=== PATIENT | female | born 1965 | race Caucasian/White ===

== ENCOUNTER 2020-01-17 15:33 | Emergency (ER) | payer OTHER, SELFPAY ==
--- NOTE | ~2020-01-17 | XR_ITS ---
XR knee RT 2V DATE: 01/17/2020 16:33 INDICATION: Fall. Object went through the medial lower left leg. TECHNIQUE: AP and crosstable lateral views COMPARISON: None FINDINGS: There is osteoarthritis involving particularly the medial and patellofemoral compartments. No fracture or dislocation or joint effusion, periosteal reaction or bone destruction is evident. There is subcutaneous emphysema along the medial aspect of the mid left lower leg. IMPRESSION: Soft tissue subcutaneous emphysema of the medial mid lower leg Osteoarthritis of the knee joint Reviewed, dictated and finalized at location A.
--- NOTE | ~2020-01-17 | XR_ITS ---
XR tibia fibula RT 2V DATE: 01/17/2020 16:34 INDICATION: Fall. An object when through the medial mid and lower leg TECHNIQUE: AP and lateral views COMPARISON: None FINDINGS: There is subcutaneous emphysema along the mid to lower aspect of the lower leg medially. No radiopaque soft tissue foreign body is evident. No fracture, dislocation, periosteal reaction or bone destruction is detected. There is osteoarthritis at the knee joint. IMPRESSION: Medial mid to lower lower leg subcutaneous emphysema Reviewed, dictated and finalized at location A.
[2020-01-17 15:37] VITALS: BP 110/55; PULSE 77; RESP 15; TEMP 36.3; O2SAT 100
--- NOTE | 2020-01-17 16:21 | ED.GENADULT ---
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 She states that she was mowing the lawn and was struck possibly by a twig. She then fell down and has knee pain and 2 small puncture wound right lower leg. She is concerned that a twig may have gone through one wound and came out the other. She denies hitting her head or losing consciousness. She denies any neck pain, back pain, chest pain or abdominal pain. She rates her right knee begum as 10/10 and sharp in nature. She was given Morphine by EMS and it relieved her pain somewhat. There is no pain radiation. She is not sure when she had a tetanus shot. Related Data Home Medications Medication Instructions Recorded Confirmed Hydrolyzed Hyaluronic Acid 01/17/20 Xanax 01/17/20 hydrocodone-acetaminophen [Vicodin 1 tablet PO Q4-6H PRN 01/17/20 01/17/20 HP] levofloxacin 250 mg PO DAILY 01/17/20 01/17/20 tramadol 50 mg PO Q4H PRN 01/17/20 01/17/20 Allergies Allergy/AdvReac Type Severity Reaction Status Date / Time Penicillins Allergy Severe Swelling Verified 01/17/20 15:47 Review of Systems Constitutional: Constitutional: Denies chills, Denies fever(s), Denies headache(s) and Denies weakness Eyes: Eyes: Denies blurry vision ENT: Denies headache(s) and Denies neck pain Cardiovascular: Cardiovascular: Denies chest pain and Denies dyspnea Respiratory: Respiratory: Denies cough and Denies dyspnea Gastrointestinal: Gastrointestinal: Denies abdominal pain, Denies diarrhea, Denies nausea and Denies vomiting Genitourinary: Genitourinary: Denies hematuria and Denies dysuria Musculoskeletal: Musculoskeletal: Denies back pain, Reports arthralgias (right knee pain) and Denies neck pain Integumentary/Breasts: Skin/Breast: Reports wounds (2 open wound right lower leg) Neurologic: Denies headache(s) and Denies weakness [facility] Social History Social History Gender identity (if verbalized by the patient): Female Exam Const: General: no acute distress and well developed Orientation/consciousness: oriented to person, oriented to place, oriented to time and patient oriented x3 HENMT: Head: normocephalic Ears: external ears normal General nose exam: Normal external nose present Eyes: General: appearance normal, both eyes and all related structures Conjunctivae: conjunctivae normal Neck: Neck: normal visual inspection and full ROM Chest: Chest palpation & inspection: normal inspection of the chest and no tenderness Resp: Effort & Inspection: normal respiratory effort Auscultation: clear to auscultation bilaterally Cardio: Rate: regular rate Rhythm: regular rhythm GI: GI Palp: No abdominal tenderness and Yes Soft to palpation Skin: General skin exam: normal color and turgor normal Wounds: wounds noted (2 small wound right lower leg, 2 cm and 1 cm) Neuro: General: oriented to person, oriented to place, oriented to time and patient oriented x3 Cognition (Neuro): normal cognition Extrem: General: normal to inspection, full ROM and no pedal edema Psych: Appearance: grossly normal Mental Status: mental status grossly normal Affect: normal affect Course Consultations Consultation #1: Discussed with Dr. Burrell, who recommends LORENA, walker for comfort as needed. Date: 01/17/20 Time: 17:51 Vital Signs Vital signs: Vital Signs Temperature 36.3 C L 01/17/20 15:37 Pulse Rate 77 01/17/20 15:37 Respiratory Rate 15 01/17/20 15:37 Blood Pressure 110/55 L 01/17/20 15:37 Pulse Oximetry 100 01/17/20 15:37 Temperature 36.3 C L 01/17/20 15:37 Pulse Rate 61 01/17/20 17:52 Respiratory Rate 15 01/17/20 17:52 Blood Pressure 110/62 01/17/20 17:52 Pulse Oximetry 99 07/0
[2020-01-17] MEDS: TETANUS,DIPHTHERIA,AC PERTUSSIS ADULT (0.5 ML) BOOSTRIX IM (17:29)
[2020-01-17 17:52] VITALS: BP 110/62; PULSE 61; RESP 15; O2SAT 99
== END 2020-01-17 18:38 | disposition home or self-care (01) ==
PROVIDERS: Emergency Provider Emergency Medicine; PCP Emergency Medicine
DX: M25.561 Pain in right knee (principal); S81.831A Puncture wound without foreign body, right lower leg, initial encounter; Z23 Encounter for immunization; W22.8XXA Striking against or struck by other objects, initial encounter; W18.39XA Other fall on same level, initial encounter; Y93.H2 Activity, gardening and landscaping
CPT/HCPCS: 73560; 73590; 90471; 90715; 96374; 99284; J3010

== ENCOUNTER 2020-01-31 11:29 | Emergency (ER) | payer OTHER, SELFPAY ==
[2020-01-31 11:51] VITALS: BP 142/57; PULSE 78; RESP 16; TEMP 36.9; O2SAT 100
--- NOTE | 2020-01-31 12:23 | ED.EXTPRO ---
HPI - Extremity Problem General Chief complaint: Extremity Problem,Nontraumatic Stated complaint: Swelling/Leg pain Time Seen by Provider: 01/31/20 12:20 Source: patient and RN notes reviewed Mode of arrival: ambulatory Limitations: no limitations History of Present Illness HPI Narrative: 54-year-old female presents with concern for wound to her right lower leg. Reports 2 weeks ago she had a penetrating wound from a metal object that flew at her leg while she was cutting grass. Reports she was seen in the emergency room where she had an x-ray to confirm no retained foreign body, entry and exit wounds were cleaned and Steri-Strips were applied. Reports she has been changing the dressing 3-4 times daily and the wound continues to weep, reports swelling, pain at the wound site. Reports she stopped taking her hydrochlorothiazide because she thought that would help with the weeping. MD Complaint: extremity pain Related Data Home Medications Medication Instructions Recorded Confirmed Hydrolyzed Hyaluronic Acid 01/17/20 Xanax 01/17/20 hydrocodone-acetaminophen [Vicodin 1 tablet PO Q4-6H PRN 01/17/20 01/17/20 HP] tramadol 50 mg PO Q4H PRN 01/17/20 01/17/20 amitriptyline 01/31/20 fluoxetine mg 01/31/20 gabapentin 01/31/20 hydrochlorothiazide 01/31/20 omeprazole 01/31/20 Allergies Allergy/AdvReac Type Severity Reaction Status Date / Time Penicillins Allergy Severe Swelling Verified 01/17/20 15:47 Review of Systems Review of Systems: Narrative: CONSTITUTIONAL: Denies malaise, chills, sweats, or fever. CARDIOVASCULAR: Denies chest pain, palpitations. Reports bilateral lower leg edema RESPIRATORY: Denies cough or dyspnea. SKIN: Reports weeping posttraumatic wound on her right lower leg MUSCULOSKELETAL: Reports right lower leg pain All systems reviewed & are unremarkable except as noted in HPI and below PMFSH Social History Social History Gender identity (if verbalized by the patient): Female Comments At time of signature, agree with nursing past medical, surgical, social and family history. There is no relevant family history pertinent to the presenting complaint Exam Narrative: Exam Narrative: GENERAL: Well-appearing, well-nourished, and in no acute distress. HEAD: Normocephalic, atraumatic. EYES: PERRLA, conjunctivae clear NECK: Supple. CHEST: Speaks in full sentences. No respiratory distress. HEART: Regular rate and rhythm. Normal and equal peripheral pulses. EXTREMITIES: Right leg, foot, digits have normal strength and sensation, normal range of motion. Moderate pitting edema noted to bilateral lower legs, right foot. 5/5 strength with bilateral ankle and digit flexion and extension. Normal sensation with sensitivity to light touch and pain. No trophic changes, no obvious deformity, alignment normal, generalized right anterior tenderness, nearby joints and structures intact. Distal pulses palpable and equal bilaterally, skin warm, dry, pink. Capillary refill less than 3 seconds. SKIN: Warm, dry, no rash. 2 wounds noted to the right anterior leg, distal wound is well approximated with intact Steri-Strips. Proximal wound is gaping with serosanguineous drainage, beefy red wound bed edema, mild induration, tenderness surrounding both wounds consistent with cellulitis or wound infection NEURO: Alert and oriented x3. PSYCH: Normal mood and affect Course Course Emergency Course: Patient is aware of diagnosis, understands and agrees to treatment plan. Anticipatory guidance given. Patient agrees to follow-up as directed and is aware of reasons to seek care at the emergency department. Portions of this record may have been created with voice recognition software Vital Signs Vital signs: Vital Signs Temperature 98.4 F 01/31/20 11:51 Pulse Rate 78 01/31/20 11:51 Respiratory Rate 16 01/31/20 11:51 Blood Pressure 142/57 H 01/31/20 11:51 Pulse Oxi
== END 2020-01-31 12:47 | disposition home or self-care (01) ==
PROVIDERS: Emergency Provider Nurse Practitioner; PCP Emergency Medicine
DX: L08.9 Local infection of the skin and subcutaneous tissue, unspecified (principal); S81.801A Unspecified open wound, right lower leg, initial encounter; W20.8XXA Other cause of strike by thrown, projected or falling object, initial encounter; Y93.H9 Activity, other involving exterior property and land maintenance, building and construction; I10 Essential (primary) hypertension; G47.30 Sleep apnea, unspecified; Z98.84 Bariatric surgery status
CPT/HCPCS: 99213; G0463

== ENCOUNTER 2020-02-13 11:04 | Emergency (ER) | payer OTHER, SELFPAY ==
--- NOTE | 2020-02-13 11:07 | ED.GENADULT ---
HPI - General Adult General Chief complaint: Extremity Injury, Lower Stated complaint: leg swelling/refill medication Time Seen by Provider: 02/13/20 11:30 Source: patient Mode of arrival: ambulatory Limitations: no limitations History of Present Illness HPI narrative: 54-year-old female patient presents to the [facility] with complaints of a wound to the right leg. Patient states early in January she was mowing the grass and a piece of metal went through her leg. Patient states she was seen in the ER and had an x-ray done and there was no foreign bodies retained at that time. Patient states that she came here to the [facility] about 10 days ago and had some antibiotics because the wound was not healing to the leg. Patient states that she finished the Bactrim antibiotics that she was given. Patient states she is only been cleaning the wounds with water but has not been placing any type of antibiotic ointments or soap to cleanse the wounds. Patient states she is also had a little bit of numbness and tingling to the anterior leg right under the wounds. Patient states this happened one other time with another wound and she called it nerve damage . Patient states she does have a follow-up appointment scheduled with her primary doctor tomorrow. Patient denies any fevers, body aches or chills. Denies any history of diabetes. Related Data Home Medications Medication Instructions Recorded Confirmed Hydrolyzed Hyaluronic Acid 01/17/20 Xanax 01/17/20 hydrocodone-acetaminophen [Vicodin 1 tablet PO Q4-6H PRN 01/17/20 01/17/20 HP] tramadol 50 mg PO Q4H PRN 01/17/20 01/17/20 amitriptyline 01/31/20 fluoxetine mg 01/31/20 gabapentin 01/31/20 hydrochlorothiazide 01/31/20 omeprazole 01/31/20 Allergies Allergy/AdvReac Type Severity Reaction Status Date / Time Penicillins Allergy Severe Swelling Verified 02/13/20 11:22 Review of Systems Review of Systems: Narrative: CONSTITUTIONAL: Denies fever, chills, or sweats. EYES: Denies visual changes, redness, or discharge. ENT: Denies rhinorrhea, congestion, sore throat, or otalgia. CARDIOVASCULAR: Denies chest pain, palpitations, or edema. RESPIRATORY: Denies cough or dyspnea. GASTROINTESTINAL: Denies abdominal pain, nausea, vomiting, or diarrhea. GENITOURINARY: Denies dysuria or hematuria. SKIN: Denies rash or itching. Positive wounds to right lower leg. MUSCULOSKELETAL: Denies back pain, joint pain, or myalgia. NEUROLOGIC: Denies headache, numbness, or weakness. PSYCHIATRIC: Denies anxiety or depression. [facility] Social History Social History Gender identity (if verbalized by the patient): Female Comments At the time of my signature I agree with nursing past medical history, surgical, social, and family history. There is no relevant family history pertinent to the presenting complaint. Exam Narrative: Exam Narrative: GENERAL: Well-appearing, well-nourished, and in no acute distress. HEAD: Normocephalic, atraumatic. EYES: PERRLA and EOMI. ENT: Nares clear, no rhinorrhea or epistaxis. Mucous membranes moist. NECK: Supple. No lymphadenopathy CHEST: Clear to auscultation. No respiratory distress. HEART: Regular rate and rhythm. No murmur heard. Normal peripheral pulses. ABDOMEN: Soft, nontender, nondistended, normal active bowel sounds. EXTREMITIES: Normal range of motion. No edema. SKIN: Warm, dry, no rash. Patient has 2 wounds noted to the anterior right lower extremity. The more proximal wound measuring approximately 0.5. No discharge noted to this site with some surrounding erythema. There is slight warmth noted to this area. There is also another wound that is more distal to the lateral side of the right leg measuring approximately 2 cm x 1 cm. There is some serosanguineous drainage noted to this area along with some warmth and slight tenderness. There is some warmth noted to the skin in between these wounds with s
[2020-02-13 11:15] VITALS: BP 116/55; PULSE 64; RESP 18; TEMP 36.9; O2SAT 98
== END 2020-02-13 11:43 | disposition home or self-care (01) ==
PROVIDERS: Emergency Provider Nurse Practitioner Family; PCP Emergency Medicine
DX: L03.116 Cellulitis of left lower limb (principal); I10 Essential (primary) hypertension; G47.30 Sleep apnea, unspecified; Z98.84 Bariatric surgery status
CPT/HCPCS: 99213; G0463

== ENCOUNTER 2020-02-14 09:39 | Outpatient (CLI) | payer OTHER, SELFPAY ==
--- NOTE | 2020-02-18 07:03 | SLEEP_ITS ---
Home Sleep Test DATE OF STUDY: 02/14/2020 REASON FOR THIS STUDY: Loud snoring, non-refreshing sleep. HISTORY: This patient is a 54-year-old female, 5 feet 6 inches tall, weighing 220 pounds with a body mass index of 35.5. She has a history of loud snoring and feels tired upon awakening. This is gone on for several months. She has used CPAP in the past. She does have excessive daytime sleepiness. She does not wake up from sleep feeling short of breath or with heartburn or belching. She occasionally snores, but does not indicate it is loud enough that others complain about it. She has trouble sleeping with a cold. She rarely wakes up at night gasping for breath. She occasionally has breathing problems at night observed by others. She does not sweat excessively at night. She rarely notices her heart pounding or beating irregularly at night. She occasionally falls asleep during the day, never involuntarily, or while driving. She does not fall asleep with physical effort. She does not fall asleep with laughing or crying and does not have loss of muscle tone with strong emotion. She does not have daytime difficulties due to excessive sleepiness. She does not feel paralyzed on waking or falling asleep. She rarely has vivid dreamlike scenes upon awakening or falling asleep. She is not afraid to go to sleep. She rarely has nightmares, rarely remembers her dreams. She occasionally has racing thoughts, feelings of sadness, depression and frequently has anxiety. She occasionally has muscular tension. She never notices parts of her body jerking and she does not kick at night. She occasionally has crawly achy feelings in her legs. She frequently has leg pain at night. She does not have morning jaw pain and does not grind her teeth at night. She constantly is bothered by pain during the day, wakes up feeling stiff in the morning with sore achy muscles and pain in her neck and spine. She rarely is awakened during the night with pain. She has dizziness, fatigue, memory problems, depression, and headaches. Bedtime is 12:00 midnight, falling asleep immediately. Hardly ever waking at night. She gets up at 6:00 in the morning. Weekend schedule is the same. She does not take naps. A short nap is not refreshing. She is usually drowsy in the morning for an hour or longer. MEDICAL COMORBIDITIES: Depression, anxiety, gastric bypass, hypothyroidism, history of obstructive sleep apnea syndrome. Apparently, she had a sleep study over 20 years ago and her setting was never changed. She is on 7 cm, so it does not sound like that was sufficient. Her note from the office indicates she was on APAP 5-10 cm and she may need a different pressure. Low back pain, morbid obesity, headache, metabolic syndrome X. MEDICATIONS: 1. Neurontin 300 mg t.i.d. 2. Omeprazole 20 mg a day. 3. Cyclobenzaprine 10 mg b.i.d. 4. Synthroid 175 mcg daily. 5. Hydrochlorothiazide 25 mg a day. 6. Topamax 100 mg b.i.d. 7. Fluticasone nasal spray 50 mcg 2 sprays each nostril daily. 8. Fluoxetine 20 mg a day. 9. Amitriptyline 50 mg h.s. 10. Imitrex 50 mg p.o. as needed for headache. 11. Ultram 50 mg q.6 hours p.r.n. 12. [place] 7.5/325 one tablet t.i.d. p.r.n. pain. 13. Alprazolam 1 mg t.i.d. as needed for anxiety. HABITS: No mention of tobacco. Caffeine, 2 beverages in the morning. No alcohol. Marijuana is used. DESCRIPTION OF THE STUDY: On the [place] Sleepiness Scale score, her score is 8. This was conducted as an unattended type 3 portable home sleep test with 4 channel monitoring including respiratory effort channel, snoring channel, oxygen saturation channel, and heart rate channel. This study was scored using CMS guidelines. Duration was 6 hours 35 minutes. Apnea-hypopnea index is 8
== END 2020-02-14 09:40 | disposition home or self-care (01) ==
LOC: ANHCSM 09:40
PROVIDERS: PCP Emergency Medicine; Visit Provider Emergency Medicine
DX: G47.33 Obstructive sleep apnea (adult) (pediatric) (principal); Z68.35 Body mass index [BMI] 35.0-35.9, adult
CPT/HCPCS: 95806

== ENCOUNTER 2021-08-24 14:39 | Outpatient (CLI) | payer MEDICARE, MEDICAID, SELFPAY ==
--- NOTE | ~2021-08-24 | CT_ITS ---
EXAMINATION:CT lung screening DATE: 08/24/2021 15:12 INDICATION: Personal history of nicotine dependence. Smoker who quit 4 years ago with 39 pack year hi story. TECHNIQUE: Computed tomography (CT) of the chest was performed without intravenous contrast. Automate d exposure control and iterative reconstruction technique were employed. The dose-length product (DLP ) was 144.14 mGy-cm. COMPARISON: Chest CT 08/17/2018 FINDINGS: The lungs demonstrate minimal atelectasis. No pleural effusion. The heart size is normal. N o pericardial effusion. There are coronary artery calcifications. There are surgical changes in the s tomach. There is a small sliding hiatal hernia. There is moderate thoracic spondylosis. IMPRESSION: 1. Lung-RADS category 1: Negative. Continue annual screening with noncontrast low-dose chest CT in 12 months. Reviewed, dictated and finalized at location A. TH WORKERS IMPRESSION: 1. Lung-RADS category 1: Negative. Continue annual screening with noncontrast l ow-dose chest CT in 12 months.
--- NOTE | ~2021-08-24 | MM_ITS ---
EXAMINATION: MM screening haily BI w dominick HISTORY: Screening TECHNIQUE: Craniocaudal and mediolateral oblique 3-D tomosynthesis images were obtained and synthetic 2-D images were generated. CAD analysis was submitted and interpreted. COMPARISON: Comparison to multiple prior studies sequentially, with oldest reviewed study dated 03/2015. BREAST PARENCHYMAL COMPOSITION: There are scattered areas of fibroglandular density. FINDINGS: There is no evidence of suspicious mass, calcification, or architectural distortion to sugg est malignancy in either breast. There has been no suspicious interval change. IMPRESSION: 1. No mammographic evidence of malignancy. 2. Recommend routine screening mammography in one year. BI-RADS Category 1: Negative Reviewed, dictated and finalized at location A. 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
== END 2021-08-24 14:40 | disposition home or self-care (01) ==
LOC: ANHIMG 14:40
PROVIDERS: PCP Emergency Medicine; Visit Provider Emergency Medicine
DX: Z12.31 Encounter for screening mammogram for malignant neoplasm of breast (principal); Z12.2 Encounter for screening for malignant neoplasm of respiratory organs; Z87.891 Personal history of nicotine dependence
CPT/HCPCS: 71271; 77063; 77067

== ENCOUNTER 2022-08-05 13:03 | Emergency (ER) | payer MEDICARE, MEDICAID, SELFPAY ==
--- NOTE | 2022-08-05 13:04 | ED.DENTAL ---
HPI - Dental/Oral General Chief complaint: Dental/Oral Stated complaint: tooth pain Time Seen by Provider: 08/05/22 13:11 Mode of arrival: ambulatory Limitations: no limitations History of Present Illness HPI Narrative: 57-year-old female presents concern for left lower dental pain. She reports about a month ago she broke a tooth in that area, she did not have any immediate pain. Reports in the last several days she began having swelling to the left jaw and pain in the tooth. Reports she has been taking ibuprofen and tramadol. She denies difficulty swallowing, fever. MD Complaint: tooth pain Related Data Home Medications Medication Instructions Recorded Confirmed Hydrolyzed Hyaluronic Acid 1 ea DIRECTED 01/17/20 08/05/22 hydrocodone 10 mg-acetaminophen 1 tablet PO Q4-6H PRN Acid Reflux 01/17/20 08/05/22 300 mg tablet (Vicodin HP) tramadol 50 mg tablet 50 mg PO Q4H PRN Acid Reflux 01/17/20 08/05/22 amitriptyline 25 mg tablet 25 mg DIRECTED 01/31/20 08/05/22 fluoxetine 20 mg capsule 20 mg DIRECTED 01/31/20 08/05/22 gabapentin 300 mg capsule 300 mg DIRECTED 01/31/20 08/05/22 hydrochlorothiazide 25 mg tablet 25 mg DIRECTED 01/31/20 08/05/22 omeprazole 20 mg capsule,delayed 20 mg DIRECTED 01/31/20 08/05/22 release alprazolam 1 mg tablet 1 mg DIRECTED 08/05/22 08/05/22 Allergies Allergy/AdvReac Type Severity Reaction Status Date / Time Penicillins Allergy Severe Swelling Verified 02/13/20 11:22 Review of Systems Review of Systems: CONSTITUTIONAL: Denies malaise, chills, sweats, or fever. EYES: Denies visual changes ENT: Denies rhinorrhea, congestion, sinus pain, otalgia or sore throat. Reports left lower dental pain and jaw swelling CARDIOVASCULAR: Denies chest pain, palpitations RESPIRATORY: Denies cough or dyspnea. SKIN: Denies rash or itching. MUSCULOSKELETAL: Denies myalgia. NEUROLOGIC: Denies numbness, weakness, or headache. All systems reviewed & are unremarkable except as noted in HPI and below PMFSH Social History Social History Gender identity (if verbalized by the patient): Female Comments At time of signature, agree with nursing past medical, surgical, social and family history. There is no relevant family history pertinent to the presenting complaint Exam Narrative: GENERAL: Well-appearing, well-nourished, and in no acute distress. HEAD: Normocephalic, atraumatic. EYES: PERRLA, sclera clear ENT: Nares clear, turbinates pink, no rhinorrhea or epistaxis. Mucous membranes moist. TM pearly cosme with sharp light reflex bilaterally; no tragal tenderness. Oropharynx without erythema or lesions. Tonsils not enlarged and without exudate. Tooth 19. Broken with mild amount edema without fluctuation noted at the gumline. Small amount left jaw swelling and tenderness noted NECK: Supple. No lymphadenopathy. CHEST: No respiratory distress. Speaks in full sentences. HEART: Regular rate and rhythm. SKIN: Warm, dry, no visible rash. NEURO: Alert and oriented x3. PSYCH: Normal mood and affect Course Course Emergency Course: Patient is aware of diagnosis, understands and agrees to treatment plan. Anticipatory guidance given. Patient agrees to follow-up as directed and is aware of reasons to seek care at the emergency department. Portions of this record may have been created with voice recognition software Level of Care: Express Care Visit Vital Signs Vital signs: Reviewed. MDM - Dental/Oral MDM Narrative Medical decision making narrative: Patients pain and complaint coupled with physical findings are consistant with dentalgia. There are no focal signs of space occupying lesions that are compromising to the airway; no dysphagia, odynophagia, dysphonia, or dyspnea. No uvular deviation or soft palate edema. Patient is non-toxic appearing. The floor of the mouth is soft with no signs of Dov's Angina; no induration below mandibl
[2022-08-05 13:09] VITALS: BP 122/49; PULSE 69; RESP 16; TEMP 36.3; O2SAT 100
== END 2022-08-05 13:24 | disposition home or self-care (01) ==
PROVIDERS: Emergency Provider Nurse Practitioner; PCP Emergency Medicine
DX: K04.7 Periapical abscess without sinus (principal); I10 Essential (primary) hypertension; Z98.84 Bariatric surgery status; H26.9 Unspecified cataract
CPT/HCPCS: 99213; G0463

== ENCOUNTER 2022-09-09 10:28 | Outpatient (CLI) | payer MEDICARE, MEDICAID, SELFPAY ==
--- NOTE | ~2022-09-09 | CT_ITS ---
EXAMINATION: CT lung screening DATE: 09/09/2022 10:57 INDICATION: History of nicotine dependence. TECHNIQUE: Computed tomography (CT) of the chest was performed without intravenous contrast. The dose -length product was 145.25 mGy-cm. Automated exposure control and iterative reconstruction technique were employed. COMPARISON: CT dated 08/24/2021 FINDINGS: Heart size is normal. No significant pleural or pericardial effusion. There are surgical ch anges of gastric bypass. No thoracic lymphadenopathy. There is mild atherosclerosis. There is a 2 mm right fissural nodule, likely benign. There is a 2 mm right upper lobe nodule. There is a 3 mm right middle lobe nodule. No focal airspace consolidation. No endobronchial lesions. No pneumothorax. Mild thoracic spondylosis. IMPRESSION: 1. Lung-RADS category 2: Benign appearance or behavior. Continue annual screening with noncontrast lo w-dose chest CT in 12 months. Reviewed, dictated and finalized at location B. 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 Lung-RADS category 2: Benign appearance or behavior. Continue annual screeni ng with noncontrast low-dose chest CT in 12 months.
== END 2022-09-09 10:29 | disposition home or self-care (01) ==
PROVIDERS: PCP Emergency Medicine; Visit Provider Emergency Medicine
DX: Z12.2 Encounter for screening for malignant neoplasm of respiratory organs (principal); Z87.891 Personal history of nicotine dependence
CPT/HCPCS: 71271

== ENCOUNTER 2022-11-02 09:53 | Outpatient (CLI) | payer MEDICARE, MEDICAID, SELFPAY ==
--- NOTE | ~2022-11-02 | DEXA_ITS ---
Bone Density Report Name: APRIL RODRIGUEZ Age: 57 Sex: Female Ethnicity: White Date of : 1965 Indication: osteopenia; parental hip fracture; height loss; prior fracture; hysterectomy; postmenopausal Referring Provider: MARYAM MOLINA Study: Bone densitometry was performed. Exam Date: November 02, 2022 Accession number: [id number] Bone Density: Region BMD T-score Z-score Classification AP Spine(L1-L4) 0.790 -2.3 -1.0 Osteopenia Femoral Neck (Left) 0.559 -2.6 -1.4 Osteoporosis Total Hip (Left) 0.783 -1.3 -0.4 Osteopenia Femoral Neck (Right) 0.596 -2.3 -1.0 Osteopenia Total Hip (Right) 0.706 -1.9 -1.0 Osteopenia Total Hip Mean 0.744 -1.6 -0.7 Osteopenia World Health Organization criteria for BMD impression classify patients as: Normal (T-score at or above -1.0), Osteopenia (T-score between -1.0 and -2.5), or Osteoporosis (T-score at or below -2.5). 10-year Fracture Risk: FRAX not reported because: Some T-score for Spine Total or Hip Total or Femoral Neck at or below -2.5 Previous Exams: Region Exam Age BMD T-score BMD Change BMD Change Date g/cm2 vs Baseline vs Previous AP Spine (L1-L4) 11/02/2022 57 0.790 -2.3 -0.116 (-12.8% -0.116 (-12.8% 12/26/2018 53 0.906 -1.3 Total Hip(Left) 11/02/2022 57 0.783 -1.3 -0.191 (-19.6% -0.136 (-14.8% 12/26/2018 53 0.919 -0.2 -0.055 (-5.6%) -0.055 (-5.6%) 06/24/2015 50 0.973 0.3 Total Hip(Right) 11/02/2022 57 0.706 -1.9 -0.279 (-28.3% -0.201 (-22.2% 12/26/2018 53 0.907 -0.3 -0.078 (-8.0%) -0.078 (-8.0%) 06/24/2015 50 0.985 0.4 *Denotes significance at 95% confidence level, LSC for AP Spine = 0.022 g/cm2, LSC for Total Hip = 0.027 g/cm2 Clinical Information Provided by Patient: Has had a low trauma fracture Parent has had a hip fracture Has the following medical conditions: Hysterectomy Patient maximum height was 67 Menopause Age: 34 No regular weight bearing exercise Does not regularly consume dairy products Drinks caffeinated beverages Onset of menses at age 10 Number of children 1 Impression: The patient has established osteoporosis, based on the Left Femoral Neck T-score and the existence of a prior fracture. The patient has risk factors, including: parental hip fracture, previous fracture. The BMD for the AP Spine (L1-L4) decreased, changing by -12.8% since the last DXA exam. The BMD for the Total Hip(Left) decreased, changing by -14.8% since the last DXA exam
--- NOTE | ~2022-11-02 | MM_ITS ---
EXAMINATION: MM screening [facility] BI w dominick HISTORY: Screening mammogram TECHNIQUE: Craniocaudal and mediolateral oblique 3-D tomosynthesis images were obtained and synthetic 2-D images were generated. CAD analysis was submitted and interpreted. COMPARISON: 08/24/2021, 08/07/2018, 06/29/2018 BREAST PARENCHYMAL COMPOSITION: There are scattered areas of fibroglandular density. FINDINGS: No suspicious mass, calcification, or architectural distortion are identified in either shashi ast to suggest malignancy. There has been no suspicious interval change. IMPRESSION: 1. No mammographic evidence of malignancy. 2. Recommend routine screening mammography in one year. BI-RADS Category 1: Negative Reviewed, dictated and finalized at location A.
== END 2022-11-02 09:54 | disposition home or self-care (01) ==
PROVIDERS: PCP Emergency Medicine; Visit Provider Emergency Medicine
DX: Z12.31 Encounter for screening mammogram for malignant neoplasm of breast (principal); M85.88 Other specified disorders of bone density and structure, other site; M81.0 Age-related osteoporosis without current pathological fracture; M85.851 Other specified disorders of bone density and structure, right thigh; M85.852 Other specified disorders of bone density and structure, left thigh
CPT/HCPCS: 77063; 77067; 77080

== ENCOUNTER 2023-10-13 13:53 | Outpatient (CLI) | payer MEDICARE, MEDICAID, SELFPAY ==
--- NOTE | ~2023-10-13 | US_ITS ---
EXAMINATION: US pelvic complete w TV DATE: 10/13/2023 15:17 INDICATION: Pelvic pain for 2-3 months Comparison:No prior studies for comparison. TECHNIQUE: Multiple transabdominal and endovaginal sonographic images of the pelvis performed. FINDINGS: Uterus is surgically absent. The right ovary measures 2.5 x 1.9 x 1.3 cm and the left ovary is not visualized due to bowel gas. No adnexal masses. There is no free fluid in the pelvis. There are no abnormal masses seen on either side. IMPRESSION: 1. Unremarkable pelvic ultrasound. Reviewed, dictated and finalized at location B.
== END 2023-10-13 13:54 | disposition home or self-care (01) ==
PROVIDERS: PCP Emergency Medicine; Visit Provider Emergency Medicine
DX: R10.2 Pelvic and perineal pain (principal)
CPT/HCPCS: 76830; 76856

== ENCOUNTER 2023-12-13 09:06 | Outpatient (CLI) | payer MEDICARE, MEDICAID, SELFPAY ==
--- NOTE | ~2023-12-13 | US_ITS ---
Abdominal Sonogram: Real-time sonographic imaging of the abdomen was performed. Clinical History: Abdominal pain Findings: The liver appears mildly heterogeneous, with no evidence of mass lesion or bile duct dilat ation. Main portal vein demonstrates normal direction of flow. The spleen is normal in size without e vidence of focal lesion. The gallbladder is well distended, and appears normal with no evidence of g allstone or wall thickening. The common bile duct measures 4 mm. The visualized pancreas, aorta, and IVC are unremarkable. The right kidney measures 11.5 cm in length and the left kidney measures 11.4 cm. There is no hydronephrosis or renal calculus. Impression: Possible diffuse fatty infiltration of liver or other chronic liver disease. Correlate clinically. Reviewed, dictated and finalized at [facility]. Impression: Possible diffuse fatty infiltration of liver or other chronic liver disease. Co rrelate clinically.
== END 2023-12-13 09:07 ==
LOC: MICIMG 09:07
PROVIDERS: PCP Emergency Medicine; Visit Provider Emergency Medicine
DX: R10.10 Upper abdominal pain, unspecified (principal)
CPT/HCPCS: 76700

== ENCOUNTER 2023-12-26 08:26 | Outpatient (CLI) | payer MEDICARE, MEDICAID, SELFPAY ==
--- NOTE | ~2023-12-26 | XR_ITS ---
EXAMINATION: XR UGI w small bowel DATE: 12/26/2023 12:46 INDICATION: Abnormal weight loss and abdominal pain TECHNIQUE: The patient drank thick barium, gas-producing crystals, and thin barium. Conventional supi ne abdomen radiographs and fluoroscopic spot radiographs of the esophagus, stomach, and proximal smal l bowel were obtained. Additional overhead radiographs were obtained during the transit through the s mall bowel. Spot fluoroscopic images of the small bowel were obtained upon contrast reaching the cec um. Fluoroscopy exposure time was 1.6 minutes. Total DAP was 98.962 Gycm^2. A total of 12 overhead ra diographs and 545 fluoroscopic images were obtained. COMPARISON: None. FINDINGS: The esophagus is normal without mass or stricture. Esophageal motility is normal. Postoperative roberts e of prior gastric bypass procedure with suture lines in the epigastric region and left abdomen. Smal l sliding type hiatal hernia containing essentially the entire non excluded portion of the stomach. T here is rapid passage of contrast through the external portion of the stomach and into the small jovon l. There was some with subsequent reflux of contrast from the small bowel across the gastrojejunal an astomosis and into the distalmost esophagus. Transit time from the stomach to proximal colon was appr oximately 3-3.5 hours. There is normal caliber and mucosal fold pattern throughout the small bowel. Terminal ileum is normal. IMPRESSION: 1. Postoperative change of prior gastric bypass procedure with small hiatal hernia containing the ent maxim small not excluded portion of the stomach. 2. Minimal gastroesophageal reflux. 3. Normal small bowel follow-through. Reviewed, dictated and finalized at location A. IMPRESSION: 1. Postoperative change of prior gastric bypass procedure with small hiatal her le containing the entire small not excluded portion of the stomach. 2. Minimal gastroesophageal reflux. 3. Normal small bowel follow-through.
== END 2023-12-26 08:27 | disposition home or self-care (01) ==
LOC: ANHIMG 08:36
PROVIDERS: PCP Emergency Medicine; Visit Provider Nurse Practitioner Family
DX: R63.0 Anorexia (principal); R63.4 Abnormal weight loss; R68.81 Early satiety
CPT/HCPCS: 74240; 74248

== ENCOUNTER 2024-09-03 13:44 | Outpatient (CLI) | payer MEDICARE, MEDICAID, SELFPAY ==
--- NOTE | ~2024-09-03 | CT_ITS ---
CT Scan of the Chest without Contrast: Clinical Indication: Lung cancer screening, nicotine dependence Technique: Contiguous sections were acquired throughout the chest without intravenous contrast. Dose reduction technique was used on this scan by utilizing automated exposure control and iterative recon struction technique. The dose-length product (DLP) was 89.22 mGy-cm. COMPARISON: 09/09/2022 Findings: There is no evidence of any significant mediastinal, hilar or axillary lymphadenopathy. The mediastin al soft tissues appear normal. There is no evidence of pleural or pericardial effusion. The lungs are clear. No pulmonary nodules or infiltrates are noted. Images through the upper abdomen reveal no abnormalities. Impression: Lung RADS 1: Negative. 12 month follow-up screening CT advised. Reviewed, dictated and finalized at location . IC RELATIONS ASSOCIATE Impression: Lung RADS 1: Negative. 12 month follow-up screening CT advised.
--- OUTSIDE RECORDS SUMMARY | 2024-09-03 13:52 | XMS_ITS | Referral Summary ---
Author Organization [facility] Address [address] [place] [address] Care Team Providers Care Objective C Developer Name Role Phone Odilon Briones MD Primary Care Provider Encounters Date Type Department Care Team Description 07/25/2024 Telephone [facility]) [facility] Minimally Invasive Surgery [address] [place] [address] 12th [address], [place] [address] Negro Torres NP Medical Question/Miscellaneous from Last 3 Months Allergies Active Allergy Reactions Criticality Noted Date Comments Penicillin G Benzathine Other (See comments) Low Reaction: Penicillins Edema,Hives Medium Medications DOCUSATE SODIUM ORAL 2 times daily Active amitriptyline (ELAVIL) 50 mg tablet TAKE 1 TABLET BY MOUTH EVERYDAY AT BEDTIME 05/31/20 20 Active cyclobenzaprine (FLEXERIL) 10 mg tablet cyclobenzaprine 10 mg tablet Active ergocalciferol (VITAMIN D) 50,000 unit capsule Take 1 capsule (50,000 Units total) by mouth once a week 07/15/20 20 Active gabapentin (NEURONTIN) 300 mg capsule TAKE 1 CAPSULE BY MOUTH THREE TIMES A DAY 07/14/20 20 Active hydroCHLOROthia zide (HYDRODIURIL) 25 mg tablet Take 1 tablet (25 mg total) by mouth daily 07/15/20 20 Active HYDROcodone-spenser taminophen (NORCO) 7.5-325 mg per tablet TAKE 1 TABLET BY MOUTH 3 TIMES A DAY NEEDED FOR PAIN 07/15/20 20 Active multivitamin tablet daily Active omeprazole (PriLOSEC) 20 mg capsule Take by mouth daily before breakfast 07/13/20 20 Active traMADoL (ULTRAM) 50 mg tablet Take 1 tablet (50 mg total) by mouth every 6 (six) hours as needed 07/15/20 Active ALPRAZolam (XANAX) 1 mg tablet TAKE 1 TABLET BY MOUTH THREE TIMES A DAY NEEDED FOR ANXIETY 07/15/20 Active SUMAtriptan (IMITREX) 50 mg tablet sumatriptan 50 mg tablet Active topiramate (TOPAMAX) 100 mg tabletIndicatio ns:Migraine without aura and without status migrainosus, not intractable Take 1 tablet (100 mg total) by mouth 2 (two) times a day 60 tablet 5 08/10/19 21 Active alendronate (FOSAMAX) 70 mg tablet PLEASE SEE ATTACHED FOR DETAILED DIRECTIONS 02/08/20 24 Active levothyroxine (SYNTHROID) 125 mcg tablet Take 1 tablet (125 mcg total) by mouth daily 03/11/[address] (CYMBALTA) 60 mg capsule Take 1 capsule (60 mg total) by mouth 2 (two) times a day 04/07/20 24 Active Active Problems Problem Noted Date Diagnosed Date Status post bariatric surgery 04/22/2024 Migraine without aura and wi thout status migrainosus, not intractable 08/10/2020 Assessment & Plan (08/10/2020 1:58 PM GEOINT ANALYST): Patient has a longstanding history of recurrent episodic headaches with historical description suggesting of migraine without aura. She has had an MRI of the brain performed which on reviewed report is normal. She is currently using topiramate 100 mg daily with good tolerability but no seen efficacy. She has not been on higher doses. She has a normal neurological examination. I will increase her topiramate 200 mg b.i.d. an effort to improve on headache prophylaxis. I will see her back in the office in 6 months time for reassessment on her adjusted dosing. Social History Tobacco Use Types Packs/Day Years Used Date Smoking Tobacco: Some Days Vaping Passive Smoke Exposure: Current Smokeless Tobacco: Never Tobacco Cessation:Ready to Q uit: Not Asked; Counseling Given: Not Answered Comments:Marijuana AUDIT-C Answer Date Recorded Q1: How often do you have a drink containing alcohol? Never 05/17/2024 Q2: How many drinks containi ng alcohol do you have on a typical day when you are drinking? Patient does not drink Q3: How often do you have si x or more drinks on one occasion? Never 05/17/2024 Personal Safety Answer Date Recorded Have you ever been in or are you currently in a harmful physical or emotional relationship or is someone making you feel afraid or unsafe? Denies 05/17/2024 Comments No Sex and Gender Information Value Date Recorded Sex Assigned at Not on file Legal Sex Female 4:11 AM GEOINT ANALYST Gender Identity Not on file Sexual Orientation Not on file Last Filed Vital Signs Vital Sign Reading Time Taken Comments Blood Pressure 130/58 05/17/2024 2:15 PM CDT Pulse 69 05/17/2024 2:15 PM CDT Temperature 37 C (98.6 F) 05/17/2024 1:55 PM CDT Respiratory Rate 14 05/17/2024 2:15 PM CDT Oxygen Saturation 100% 05/17/2024 2:15 PM CDT Inhaled Oxygen Concentration - - Weight 75.3 kg (166 lb) 05/17/2024 12:24 PM CDT Height 173.7 cm (5' 8.4 ) 05/17/2024 12:24 PM CD T Body Mass Index 24.95 05/17/2024 12:24 PM CDT Plan of Treatment Not on file Insurance [facility] Member Subscriber Plan / Payer (Ef fective 2016-Present) Name:Ange Macdonald Relation to Subscriber:Self Name:Ange Macdonald Payer ID:[id number] (NAIC) Group ID:Not on file Type:MEDICAID RISK OTHER Address: [address] [id number] MEDICARE IDPA AETNA MEDICARE GOLD IDPA AETNA MEDICARE GOLD IDPA Advance Directives For more information, please contact: [phone] * Full Code (Latest Code Status on File) Date Activated Date Inactivated Comments 05/17/2024 12:28 PM 05/17/2024 6:38 PM Care Teams Objective C Developer Relationship Specialty Start Date End Date Odilon Briones MD PCP - General 11/07/16
--- OUTSIDE RECORDS SUMMARY | 2024-09-03 13:52 | XMS_ITS | Clinical Summary ---
Author Organization [facility] Address [address] [place] [address] Care Team Providers Care Musical Instrument Supervisor Name Role Phone Odilon Briones MD Primary Care Provider + [phone] Allergies Active Allergy Reactions Criticality Noted Date [...] every 6 (six) hours as needed 07/15/20 20 Active ALPRAZolam (XANAX) 1 mg tablet TAKE 1 TABLET BY MOUTH THREE TIMES A DAY NEEDED FOR ANXIETY 07/15/20 20 Active SUMAtriptan (IMITREX) 50 mg tablet sumatriptan [...] 08/10/2020 Assessment & Plan (08/10/2020 1:58 PM MANAGER BRANCH): Patient has a longstanding history of recurrent [...] time for reassessment on her adjusted dosing. Encounters Date Type Department Care Team Description 07/25/2024 Telephone [facility] Advanced Medicine ([facility]) - [facility] Minimally Invasive Surgery [address] [facility] Advanced Medicine 12th Floor, [place] [address] Negro Torres NP Medical Question/Miscellaneous from Last 3 Months Surgical History Surgery Date Site/Laterality Comments TUBAL LIGATION SECTION HYSTERECTOMY GASTRIC BYPASS BREAST LUMPECTOMY Right Medical History Medical History Date Comments Body mass index (BMI) of 34. 0-34.9 in adult BMI 34.0-34.9,adult - (Added by TW Conv) Stroke (HCC) Depression Family History Medical History Relation Name Comments No Known Problems Brother Heart attack Father Hypertension Mother Family history of hypertension - (Added by TW Conv) Hypertension Other Family history of hypertension - (Added by TW Conv) No Known Problems Sister Relation Name Status Comments Brother Alive Father Mother Other Sister Alive Social History Tobacco Use Types Packs/Day Years [...] on file Legal Sex Female 4:11 AM MANAGER BRANCH Gender Identity Not on file Sexual Orientation Not on file Obstetrics History Last Filed Vital Signs Vital Sign Reading [...] 05/17/2024 12:24 PM CDT Plan of Treatment Health Maintenance Due Date Last Done Comments Breast Cancer Screening-Mammogram 1965 Colon Cancer Screening-Colonoscopy 1965 Depression Screening 1965 Hepatitis C Screening 1965 Pneumococcal vaccine <65 (1 of 2 - PCV) 1969 DTaP/Tdap/Td Vaccine (1 - Tdap) 1974 Hepatitis B Screening 1981 Regular Well Visit/Exam 18-64 1981 Zoster Vaccine (1 of 2) 2013 Influenza Vaccine (#1) 2024 9, 04/27/2017, 05/11/2016, Additional history exists Insurance [facility] MEDICARE [facility] T MEDICARE GOLD IDPA [facility] MEDICARE [facility] IDPA Advance Directives For more information, please contact: [phone] * Full Code (Latest Code Status on File) Date Activated Date Inactivated Comments 05/17/2024 12:28 PM 05/17/2024 6:38 PM Care Teams Musical Instrument Supervisor Relationship Specialty Start Date End Date Odilon Briones MD PCP - General 11/07/16
== END 2024-09-03 13:45 | disposition home or self-care (01) ==
PROVIDERS: PCP Emergency Medicine; Visit Provider Emergency Medicine
DX: Z12.2 Encounter for screening for malignant neoplasm of respiratory organs (principal); Z87.891 Personal history of nicotine dependence
CPT/HCPCS: 71271

== ENCOUNTER 2024-09-09 09:55 | Outpatient (CLI) | payer MEDICARE, MEDICAID, SELFPAY ==
--- NOTE | ~2024-09-09 | NM_ITS ---
EXAMINATION: NM hepatobiliary w pharm DATE: 09/09/2024 12:26 INDICATION: Upper abdominal pain. COMPARISON: None. TECHNIQUE: 4 mCi Tc-99m mebrofenin (Choletec) was administered intravenously. Scintigraphic images o f the abdomen were obtained for one hour. Then, 1.6 mcg sincalide (Kinevac) IV was administered, and imaging was continued for 30 minutes. FINDINGS: There is normal clearance of radiotracer from the blood pool. There is homogeneous tracer u ptake by the liver. Activity progresses to the bowel and gallbladder. Gallbladder ejection fraction (GBEF) was 62%. Note that most patients with gallbladder dysfunction have GBEF < 35%, which overlaps with the broad normal range of 10-90%. IMPRESSION: 1. Normal hepatobiliary scintigraphy. Reviewed, dictated and finalized at location A. LE LOOM OPERATOR HELPER
--- OUTSIDE RECORDS SUMMARY | 2024-09-09 11:02 | XMS_ITS | Clinical Summary ---
Author Organization [facility] Address [address] [place] [address] Care Team Providers Care Transcription Coordinator Name Role Phone Odilon Briones MD Primary Care Provider + [phone] Allergies Active Allergy Reactions Criticality Noted Date [...] 08/10/2020 Assessment & Plan (08/10/2020 1:58 PM PROPRIETARY TRADER): Patient has a longstanding history of recurrent [...] Type Department Care Team Description 07/25/2024 Telephone [facility] Advanced Medicine ([facility]) - [facility] Minimally Invasive Surgery [address] [facility] Advanced Medicine 12th Floor, [place] [address] Negro Torres NP Medical Question/Miscellaneous [...] on file Legal Sex Female 4:11 AM PROPRIETARY TRADER Gender Identity Not on file Sexual Orientation [...] Depression Screening 1965 Hepatitis C Screening 1965 DTaP/Tdap/Td Vaccine (1 - Tdap) 1974 Hepatitis B Screening 1981 Regular Well Visit/Exam 18-64 1981 Pneumococcal vaccine <65 (1 of 2 - PCV) 1982 Zoster Vaccine (1 of 2) 2013 Influenza Vaccine (#1) 2024 9, 04/27/2017, 05/11/2016, Additional history exists Insurance [facility] MEDICARE [facility] T MEDICARE GOLD IDPA [facility] MEDICARE [facility] IDPA Advance Directives For more information, please contact: [phone] * Full Code (Latest Code Status on File) Date Activated Date Inactivated Comments 05/17/2024 12:28 PM 05/17/2024 6:38 PM Care Teams Transcription Coordinator Relationship Specialty Start Date End Date Odilon Briones MD PCP - General 11/07/16
--- OUTSIDE RECORDS SUMMARY | 2024-09-09 11:02 | XMS_ITS | Referral Summary ---
Author Organization [facility] Address [address] [place] [address] Care Team Providers Care Paving Machine Operator Name Role Phone Odilon Briones MD Primary Care Provider Encounters Date Type Department Care Team Description 07/25/2024 Telephone [facility]) [facility] Minimally Invasive Surgery [address] [place] [address] 12th Floor, [place] [address] Negro Torres NP Medical Question/Miscellaneous [...] 08/10/2020 Assessment & Plan (08/10/2020 1:58 PM RECORD LABEL INTERN): Patient has a longstanding history of recurrent [...] on file Legal Sex Female 4:11 AM RECORD LABEL INTERN Gender Identity Not on file Sexual Orientation [...] Plan of Treatment Not on file Insurance [facility] Member Subscriber Plan / Payer (Ef fective 2016-Present) Name:Ange Macdonald Relation to Subscriber:Self Name:Ange Macdonald Payer ID:[id number] (NAIC) Group ID:Not on file Type:MEDICAID RISK OTHER Address: [address] [id number] MEDICARE IDPA AETNA MEDICARE GOLD IDPA AETNA MEDICARE GOLD IDPA Advance Directives For more information, please contact: [phone] * Full Code (Latest Code Status on File) Date Activated Date Inactivated Comments 05/17/2024 12:28 PM 05/17/2024 6:38 PM Care Teams Paving Machine Operator Relationship Specialty Start Date End Date Odilon Briones MD PCP - General 11/07/16
== END 2024-09-09 09:56 | disposition home or self-care (01) ==
PROVIDERS: PCP Emergency Medicine; Visit Provider Emergency Medicine
DX: R10.10 Upper abdominal pain, unspecified (principal)
CPT/HCPCS: 78227; A9537; J2805

== ENCOUNTER 2024-09-18 15:03 | Outpatient (CLI) | payer MEDICARE, MEDICAID, SELFPAY ==
--- NOTE | ~2024-09-18 | MM_ITS ---
EXAMINATION: MM screening [facility] BI w dominick HISTORY: Screening mammogram TECHNIQUE: Craniocaudal and mediolateral oblique 3-D tomosynthesis images were obtained and synthetic 2-D images were generated. CAD analysis was submitted and interpreted. COMPARISON: 11/02/2022, 08/24/2021, 08/07/2018, 06/19/2018 BREAST PARENCHYMAL COMPOSITION:Not Dense. There are scattered areas of fibroglandular density. FINDINGS: Stable small low-density left breast mass. No suspicious mass, calcification, or architectu ral distortion are identified in either breast to suggest malignancy. There has been no suspicious in terval change. IMPRESSION: No mammographic evidence of malignancy. Recommend routine screening mammography in one year. BI-RADS Category 2: Benign finding(s). Reviewed, dictated and finalized at [facility]. OF MARKETING
--- OUTSIDE RECORDS SUMMARY | 2024-09-18 16:53 | XMS_ITS | Referral Summary ---
Author Organization [facility] Address [address] [place] [address] Care Team Providers Care Edger Machine Setter Name Role Phone Odilon Briones MD Primary Care Provider Encounters Date Type Department Care Team Description 07/25/2024 Telephone [facility]) [facility] Minimally Invasive Surgery [address] [place] [address] [address]th Floor, [place] [address] Negro Torres NP Medical Question/Miscellaneous [...] 08/10/2020 Assessment & Plan (08/10/2020 1:58 PM SHEET TURNER): Patient has a longstanding history of recurrent [...] on file Legal Sex Female 4:11 AM SHEET TURNER Gender Identity Not on file Sexual Orientation [...] Plan of Treatment Not on file Insurance [facility] Member Subscriber Plan / Payer (Ef fective 2016-Present) Name:Ange Macdonald Relation to Subscriber:Self Name:Ange Macdonald Payer ID:[id number] (NAIC) Group ID:Not on file Type:MEDICAID RISK OTHER Address: [address] [id number] MEDICARE IDPA AETNA MEDICARE GOLD IDPA AETNA MEDICARE GOLD IDPA Advance Directives For more information, please contact: [phone] * Full Code (Latest Code Status on File) Date Activated Date Inactivated Comments 05/17/2024 12:28 PM 05/17/2024 6:38 PM Care Teams Edger Machine Setter Relationship Specialty Start Date End Date Odilon Briones MD PCP - General 11/07/16
--- OUTSIDE RECORDS SUMMARY | 2024-09-18 16:53 | XMS_ITS | Continuity of Care Document ---
Author Organization [facility] Address [address] [facility] [address] [place] [address] Phone Care Team Providers Care Director Of Community Life Name Role Phone Reyes Henson PT Unavailable Unavailable Procedures Procedure Date PT Evaluation Moderate Complexity Therapeutic Activities Neuromuscular Re-Ed Advance Directives Directive Yes / No Effective Date File Name No Information Encounters Encounter Description Practice Location Reason(s) For Visit Diagnoses Date Provider Providers Copied on Encounter [facility], [address], [place], [place], [id number], tel:[phone] [place] No Information 3 Sixto Chambers. . Referring Provider: Odilon Briones, [address] [place], [place] [address]olia [facility] [address], [place], [address]. tel:[phone] Family History Family Member Type Diagnosis Age At Onset No Information Payers Payer name Insurance type Covered republican ID Authoriza tion(s) Aetna Medicare Replacement CI [id number] Medicaid OON Write Off CI 00 Social History Type Description Quantity Date Captured Comments Alcohol Use Details Unknown Caffeine Use Details Unknown Tobacco Use Status Cigarette smoker Smoking Status Light tobacco smoker Non-Smoking Tobacco Use Details : No Details Available : No Details Available Sex Female Vital Signs Date / Time: Height Weight BMI Pulse Rate Blood Pressure Temperature Respiratory Rate Body Surface Area Head Circumference Head Circ. Percentile Wt./Frandy. Percentile BMI percentile Pulse Ox Inhaled Ox 3:16 PM 67.00 in 94.350 kg (208.00 lbs) 32.5 7 kg/m eter (2) 2.11 meter(2) Chief Complaint And Reason For Visit No Information Reason For Referral Reason For Referral No Information Plan Of Treatment Date Type Action Status Goal Tobacco Cessation Counseling completed Goal Tobacco cessation counseling completed History Of Present Illness Encounter Date Complaint History Of Prese nt Illness No Information Functional Status Date Functional Assessmen t No Information Instructions Date Instruction Additional Infor mation Dietary needs education Related to Overweight Prescribed activity/exercise edu cation Related to Overweight Assessments Type Assessment Date No Information Patient Care Teams Name Effective Dates (start - stop) Status Members No Information
--- OUTSIDE RECORDS SUMMARY | 2024-09-18 16:53 | XMS_ITS | Continuity of Care Document ---
Author Organization [facility] Address [address] [place] [address] [place] [address] Phone Care Team Providers Care Quarry Manager Name Role Phone Odilon Briones MD Unavailable Unavailable Allergies, Adverse Reactions, Alerts Substance Reaction Status Criticality penicillin G Active No Information Medications Medication Instructions Dosage Effective Dates (start - stop) Status Comments Topamax 100 mg tablet take 1 Tablet by oral route 2 times every day 100 MG - Active amitriptyline 50 mg tablet take 1 tablet by oral route every day at bedtime 50 MG - Active Xanax 1 mg tablet take 1 tablet by oral route 3 times every day as needed 1 MG - Active avoid driving o operate machines, PRN for anxiety tramadol 50 mg tablet take 1 tablet by oral route every 6 hours as needed as needed 50 MG - Active PRN for pain, avoid driving or operate machines hydrocodone 7.5 mg-acetaminophen 325 mg tablet take 1 tablet by oral route 3 times every day as needed for pain as needed 1 tablet - Active PRn for pain, avoid driving or operate machines Cymbalta 60 mg capsule,delayed release take 1 capsule by oral route 2 times every day 60 MG - Active cyclobenzaprine 10 mg tablet take 1 tablet by oral route 2 times every day as needed 10 MG - Active PRN for pain, avoid driving or operate machines hydrochlorothiazide 25 mg tablet take 1 tablet by oral route every day 25 MG - Active Neurontin 300 mg capsule take 1 capsule by oral route 3 times every day 300 MG - Active Synthroid 125 mcg tablet take 1 tablet b y oral route every day 125 MCG - Active alendronate 70 mg tablet take 1 tablet b y oral route every week in the morning, at least 30 min before first food, beverage, or medication of day 70 MG - Active Vitamin D2 1,250 mcg (50,000 unit) capsule take one capsule orally once per week - Active Imitrex 50 mg tablet take 1 tablet by oral route as needed 50 MG - Active take one at onset of headache, may repeat x one in two hours, max 2/24 hours omeprazole 20 mg capsule,delayed release TAKE 1 CAPSULE BY MOUTH EVERY DAY BEFORE A MEAL - Active naloxone 0.4 mg/mL injection syringe inject 1 milliliter by intravenous route over once, may repeat at 2 to 3 minute intervals as needed - Active PRN for OD fluticasone propionate 50 mcg/actuation nasal spray,suspension inhale 2 spray by intranasal route every day in each nostril 100 MCG - Active Procedures Procedure Date OFFICE/OUTPATIENT VISIT, EST OFFICE/OUTPATIENT VISIT, EST OFFICE/OUTPATIENT VISIT, EST OFFICE/OUTPATIENT VISIT, EST OFFICE/OUTPATIENT VISIT, EST OFFICE/OUTPATIENT VISIT, EST OFFICE/OUTPATIENT VISIT, EST OFFICE/OUTPATIENT VISIT, EST OFFICE/OUTPATIENT VISIT, EST OFFICE/OUTPATIENT VISIT, EST OFFICE/OUTPATIENT VISIT, EST OFFICE/OUTPATIENT VISIT, EST OFFICE/OUTPATIENT VISIT, EST OFFICE/OUTPATIENT VISIT, EST OFFICE/OUTPATIENT VISIT, EST OFFICE/OUTPATIENT VISIT, EST OFFICE/OUTPATIENT VISIT, EST OFFICE/OUTPATIENT VISIT, EST OFFICE/OUTPATIENT VISIT, EST OFFICE/OUTPATIENT VISIT, EST OFFICE/OUTPATIENT VISIT, EST OFFICE/OUTPATIENT VISIT, EST OFFICE/OUTPATIENT VISIT, EST OFFICE/OUTPATIENT VISIT, EST OFFICE/OUTPATIENT VISIT, EST OFFICE/OUTPATIENT VISIT, EST -2022 PREV VISIT, EST, AGE 40-64 OFFICE/OUTPATIENT VISIT, EST OFFICE/OUTPATIENT VISIT, EST OFFICE/OUTPATIENT VISIT, EST OFFICE/OUTPATIENT VISIT, EST OFFICE/OUTPATIENT VISIT, EST OFFICE/OUTPATIENT VISIT, EST OFFICE/OUTPATIENT VISIT, EST OFFICE/OUTPATIENT VISIT, EST OFFICE/OUTPATIENT VISIT, EST OFFICE/OUTPATIENT VISIT, EST OFFICE/OUTPATIENT VISIT, EST OFFICE/OUTPATIENT VISIT, EST OFFICE/OUTPATIENT VISIT, EST PREV VISIT, EST, AGE 40-64 OFFICE/OUTPATIENT VISIT, EST OFFICE/OUTPATIENT VISIT, EST OFFICE/OUTPATIENT VISIT, EST OFFICE/OUTPATIENT VISIT, EST OFFICE/OUTPATIENT VISIT, EST OFFICE/OUTPATIENT VISIT, EST -2020 OFFICE/OUTPATIENT VISIT, EST OFFICE/OUTPATIENT VISIT, EST OFFICE/OUTPATIENT VISIT, EST OFFICE/OUTPATIENT VISIT, EST OFFICE/OUTPATIENT VISIT, EST OFFICE/OUTPATIENT VISIT, EST OFFICE/OUTPATIENT VISIT, EST -2019 Initial preventive exam OFFICE/OUTPATIENT VISIT, EST OFFICE/OUTPATIENT VISIT, EST OFFICE/OUTPATIENT VISIT, EST OFFICE/OUTPATIENT VISIT, EST -2019 OFFICE/OUTPATIENT VISIT, EST OFFICE/OUTPATIENT VISIT, EST OFFICE/OUTPATIENT VISIT, EST OFFICE/OUTPATIENT VISIT, EST OFFICE/OUTPATIENT VISIT, EST OFFICE/OUTPATIENT VISIT, EST OFFICE/OUTPATIENT VISIT, EST OFFICE/OUTPATIENT VISIT, EST PREV VISIT, EST, AGE 40-64 OFFICE/OUTPATIENT VISIT, EST OFFICE/OUTPATIENT VISIT, EST OFFICE/OUTPATIENT VISIT, EST OFFICE/OUTPATIENT VISIT, EST OFFICE/OUTPATIENT VISIT, EST OFFICE/OUTPATIENT VISIT, EST OFFICE/OUTPATIENT VISIT, EST OFFICE/OUTPATIENT VISIT, EST OFFICE/OUTPATIENT VISIT, EST OFFICE/OUTPATIENT VISIT, EST OFFICE/OUTPATIENT VISIT, EST OFFICE/OUTPATIENT VISIT, EST PREV VISIT, EST, AGE 40-64 OFFICE/OUTPATIENT VISIT, EST OFFICE/OUTPATIENT VISIT, EST OFFICE/OUTPATIENT VISIT, EST OFFICE/OUTPATIENT VISIT, EST OFFICE/OUTPATIENT VISIT, EST OFFICE/OUTPATIENT VISIT, EST OFFICE/OUTPATIENT VISIT, EST OFFICE/OUTPATIENT VISIT, EST OFFICE/OUTPATIENT VISIT, EST OFFICE/OUTPATIENT VISIT, EST OFFICE/OUTPATIENT VISIT, EST PREV VISIT, EST, AGE 40-64 OFFICE/OUTPATIENT VISIT, EST OFFICE/OUTPATIENT VISIT, EST OFFICE/OUTPATIENT VISIT, EST OFFICE/OUTPATIENT VISIT, EST OFFICE/OUTPATIENT VISIT, EST OFFICE/OUTPATIENT VISIT, EST OFFICE/OUTPATIENT VISIT, EST OFFICE/OUTPATIENT VISIT, EST OFFICE/OUTPATIENT VISIT, EST OFFICE/OUTPATIENT VISIT, EST OFFICE/OUTPATIENT VISIT, EST OFFICE/OUTPATIENT VISIT, EST OFFICE/OUTPATIENT VISIT, EST PREV VISIT, EST, AGE 40-64 OFFICE/OUTPATIENT VISIT, EST OFFICE/OUTPATIENT VISIT, EST OFFICE/OUTPATIENT VISIT, EST OFFICE/OUTPATIENT VISIT, EST OFFICE/OUTPATIENT VISIT, EST OFFICE/OUTPATIENT VISIT, EST OFFICE/OUTPATIENT VISIT, EST OFFICE/OUTPATIENT VISIT, EST OFFICE/OUTPATIENT VISIT, EST OFFICE/OUTPATIENT VISIT, EST OFFICE/OUTPATIENT VISIT, EST OFFICE/OUTPATIENT VISIT, EST OFFICE/OUTPATIENT VISIT, EST OFFICE/OUTPATIENT VISIT, EST OFFICE/OUTPATIENT VISIT, EST PREV VISIT, EST, AGE 40-64 OFFICE/OUTPATIENT VISIT, EST OFFICE/OUTPATIENT VISIT, EST OFFICE/OUTPATIENT VISIT, EST OFFICE/OUTPATIENT VISIT, EST OFFICE/OUTPATIENT VISIT, EST OFFICE/OUTPATIENT VISIT, EST OFFICE/OUTPATIENT VISIT, EST OFFICE/OUTPATIENT VISIT, EST OFFICE/OUTPATIENT VISIT, EST OFFICE/OUTPATIENT VISIT, EST OFFICE/OUTPATIENT VISIT, EST OFFICE/OUTPATIENT VISIT, EST PREV VISIT, EST, AGE 40-64 OFFICE/OUTPATIENT VISIT, EST OFFICE/OUTPATIENT VISIT, EST OFFICE/OUTPATIENT VISIT, EST OFFICE/OUTPATIENT VISIT, EST OFFICE/OUTPATIENT VISIT, EST OFFICE/OUTPATIENT VISIT, EST OFFICE/OUTPATIENT VISIT, EST OFFICE/OUTPATIENT VISIT, EST OFFICE/OUTPATIENT VISIT, EST OFFICE/OUTPATIENT VISIT, EST OFFICE/OUTPATIENT VISIT, EST OFFICE/OUTPATIENT VISIT, EST OFFICE/OUTPATIENT VISIT, EST PREV VISIT, EST, AGE 40-64 OFFICE/OUTPATIENT VISIT, EST OFFICE/OUTPATIENT VISIT, EST OFFICE/OUTPATIENT VISIT, EST OFFICE/OUTPATIENT VISIT, EST OFFICE/OUTPATIENT VISIT, EST OFFICE/OUTPATIENT VISIT, EST OFFICE/OUTPATIENT VISIT, EST Advance Directives Directive Yes / No Effective Date File Name No Information Encounters Encounter Description Practice Location Reason(s) For Visit Diagnoses Date Provider Providers Copied on Encounter OFFICE/OUTPA TIENT VISIT, [facility], [address] [place], [address], tel:[phone] [facility] pain (chief complaint)anxie ty1 (chief complaint)migra ine1 (chief complaint) Migraine with aura, not intractable, without status migrainosusChr onic pain syndromeGenera lized anxiety disorderTobacc o useUpper abdominal pain 5 Anselmo Forbes [address], [address], [place], [place], [address] , [place]. tel:[phone] OFFICE/OUTPA TIENT VISIT, [facility], [address], [place], [place], [address], [place] tel:[phone] [facility] pain (chief complaint)anxie ty1 (chief complaint)weigh t loss1 (chief complaint) Chronic pain syndromeGenera lized anxiety disorderUpper abdominal painAbnormal weight loss 5 Anselmo Donald. [address], [place], [place], [address] , [place]. tel:[phone] OFFICE/OUTPA TIENT VISIT, [facility], [address], [place], [place], [address], [place] tel:[phone] [facility] Anxiety1 (chief complaint)pain (chief complaint)abd pain1 (chief complaint) Chronic pain syndromeGenera lized anxiety disorderUpper abdominal pain 4 Anselmo Donald. [address], [place], [place], [address] , [place]. tel:[phone] OFFICE/OUTPA TIENT VISIT, [facility], [address] [place], [address], tel:[phone] [facility] thyroid1 (chief complaint)anxie ty1 (chief complaint)pain (chief complaint)MCV (chief complaint)foot pain1 (chief complaint) Reyna's thyroiditisGen eralized anxiety disorderChroni c pain syndromePain in left footOther abnormality of red blood cells 4 Briones Odilon. [address], [address], [place], [place], [address] , [place]. tel:[phone] OFFICE/OUTPA TIENT VISIT, [facility], [address] [place], [address], tel:[phone] [facility] anxiety1 (chief complaint)pain (chief complaint)GERD1 (chief complaint)thyro id1 (chief complaint) Chronic pain syndromeGenera lized anxiety disorderHashim frances's thyroiditisGER D w/o esophagitis 4 Anselmo Donald. [address], [address], [place], [place], [address] , [place]. tel:[phone] OFFICE/OUTPA TIENT VISIT, [facility], [address] [place], [address], [place] tel:[phone] [facility] pain (chief complaint)anxie ty1 (chief complaint)edema 1 (chief complaint) Chronic pain syndromeGenera lized anxiety disorderEdema 4 Anselmo Donald. [address], [address], [place], [place], [address] , [place]. tel:[phone] OFFICE/OUTPA TIENT VISIT, [facility], [address] [place], [address], [place] tel:[phone] [facility] pain (chief complaint)anxie ty1 (chief complaint)heari ng loss1 (chief complaint)abd pain1 (chief complaint)sanjuana moto1 (chief complaint) Generalized anxiety disorderChroni c pain syndromeConduc tive hearing loss, bilateralHashi silvana's thyroiditisUpp er abdominal pain 4 Anselmo Donald. [address], [address], [place], [place], [address] , [place]. tel:[phone] OFFICE/OUTPA TIENT VISIT, [facility], [address], [place], [place], [address], [place] tel:[phone] [facility] pain (chief complaint)anxie ty1 (chief complaint)abd pain1 (chief complaint)heari ng loss1 (chief complaint) Chronic pain syndromeGenera lized anxiety disorderUpper abdominal painConductive hearing loss, bilateralOsteo porosis 4 Anselmo Donald. [address], [address], [place], [place], [address] , [place]. tel:[phone] OFFICE/OUTPA TIENT VISIT, [facility], [address], [place], [place], [address], [place] tel:[phone] [facility] pain (chief complaint)anxie ty1 (chief complaint)abd pain1 (chief complaint) Chronic pain syndromeGenera lized anxiety disorderUpper abdominal painAbnormal weight lossEncntr screen mammogram for malignant neoplasm of breast 4 Anselmo Donald. [address], [address], [place], [place], [address] , [place]. tel:[phone] OFFICE/OUTPA TIENT VISIT, [facility], [address] [place], [address], [place] tel:[phone] [facility] UTI1 (chief complaint) Acute cystitis without hematuria 4 Anselmo Donald. [address], [address], [place], [place], [address] , [place]. tel:[phone] OFFICE/OUTPA TIENT VISIT, [facility], [address], [place], [place], [address], [place] tel:[phone] [facility] anxiety1 (chief complaint)pain (chief complaint)UTI1 (chief complaint)abd pain1 (chief complaint)sanjuana moto1 (chief complaint)weigh t loss1 (chief complaint) Acute cystitis without hematuriaChron ic pain syndromeGenera lized anxiety disorderUpper abdominal painHashimoto' s thyroiditisHyp erglycemiaOthe r specified abnormal findings of blood chemistryFatty liverAbnormal weight loss November- 4 Anselmo Donald. [address], [address], [place], [place], [address] , [place]. tel:[phone] OFFICE/OUTPA TIENT VISIT, [facility], [address], [place], [place], [address], [place] tel:[phone] [facility] anxiety1 (chief complaint)pain (chief complaint)abd pain1 (chief complaint) Chronic pain syndromeGenera lized anxiety disorderUpper abdominal pain Apr-3 4 Anselmo Donald. [address], [address], [place], [place], [address] , [place]. tel:[phone] OFFICE/OUTPA TIENT VISIT, [facility], [address], [place], [place], [address], [place] tel:[phone] [facility] anxiety1 (chief complaint)pain (chief complaint)pelvi c pain1 (chief complaint) Chronic pain syndromeGenera lized anxiety disorderPelvic painUrge incontinenceTo bacco use Apr-0 4 Anselmo Donald. [address], [address], [place], [place], [address] , [place]. tel:[phone] OFFICE/OUTPA TIENT VISIT, [facility], [address], [place], [place], [address], [place] tel:[phone] [facility] anxiety1 (chief complaint)pain (chief complaint)pelvi c pain1 (chief complaint) Chronic pain syndromeGenera lized anxiety disorderDysuri aPelvic pain Sep-0 4 Briones Odilon. [address], [address], [place], [place], [address] , [place]. tel:[phone] OFFICE/OUTPA TIENT VISIT, [facility], [address], [place], [place], [address], [place] tel:[phone] [facility] anxiety1 (chief complaint)pain (chief complaint)urine retention1 (chief complaint)osteo pporosis1 (chief complaint) Chronic pain syndromeGenera lized anxiety disorderOsteop orosisRetentio n of urine 4 Anselmo Donald. [address], [address], [place], [place], [address] , [place]. tel:[phone] OFFICE/OUTPA TIENT VISIT, [facility], [address], [place], [place], [address], [place] tel:[phone] [facility] anxiety1 (chief complaint)pain (chief complaint)OAB (chief complaint) Generalized anxiety disorderChroni c pain syndromeOverac tive bladder 4 Anselmo Donald. [address], [address], [place], [place], [address] , [place]. [phone] OFFICE/OUTPA TIENT VISIT, [facility], [address], [place], [place], [address], [place] tel:[phone] [facility] anxiety1 (chief complaint)pain (chief complaint)migra ine1 (chief complaint)insom nia1 (chief complaint) Chronic pain syndromeGenera lized anxiety disorderMigrai ne w/o aura, not intractable, w/o status migrainosusPri roger insomnia 3 Anselmo Forbes [address], [address], [place], [place], [address] , [place]. [phone] OFFICE/OUTPA TIENT VISIT, [facility], [address], [place], [place], [address], [place] tel:[phone] [facility] anxiety1 (chief complaint)pain (chief complaint)migar ine1 (chief complaint) Chronic pain syndromeGenera lized anxiety disorderMigrai ne w/o aura, not intractable, w/o status migrainosus 3 Anselmo Forbes [address], [address], [place], [place], [address] , [place]. tel:[phone] OFFICE/OUTPA TIENT VISIT, [facility], [address], [place], [place], [address], [place] tel:[phone] [facility] anxiety1 (chief complaint)migra ine1 (chief complaint)pain (chief complaint) Chronic pain syndromeGenera lized anxiety disorderMigrai ne w/o aura, not intractable, w/o status migrainosus 3 Anselmo Donald. [address], [place], [place], [address] , [place]. tel:[phone] OFFICE/OUTPA TIENT VISIT, [facility], [address], [place], [place], [address], [place] tel:[phone] [facility] migaine1 (chief complaint)pain (chief complaint)anxie ty1 (chief complaint) Generalized anxiety disorderChroni c pain syndromeMigrai ne w/o aura, not intractable, w/o status migrainosus 3 Anselmo Donald. [address], [address], [place], [place], [address] , [place]. tel:[phone] OFFICE/OUTPA TIENT VISIT, [facility], [address], [place], [place], [address], [place] tel:[phone] [facility] anxiety1 (chief complaint)thryo id (chief complaint)pain (chief complaint)migra ine1 (chief complaint) Chronic pain syndromeGenera lized anxiety disorderHashim frances's thyroiditisMig sumanth w/o aura, not intractable, w/o status migrainosus 0 3 Anselmo Donald. [address], [place], [place], [address] , [place]. tel:[phone] OFFICE/OUTPA TIENT VISIT, [facility], [address], [place], [place], [address], [place] tel:[phone] [facility] UTI1 (chief complaint) Acute cystitis without hematuria 3 Anselmo Donald. [address], [place], [place], [address] , [place]. tel:[phone] OFFICE/OUTPA TIENT VISIT, [facility], [address], [place], [place], [address], [place] tel:[phone] [facility] anxiety1 (chief complaint)pain (chief complaint)osteo porosis1 (chief complaint)heari ng loss1 (chief complaint)GERD1 (chief complaint) OsteoporosisGe neralized anxiety disorderChroni c pain syndromeOther specified hearing loss, right earGERD w/o esophagitisCon ductive hearing loss, bilateral 3 Anselmo Donald. [address], [place], [place], [address] , [place]. tel:[phone] OFFICE/OUTPA TIENT VISIT, [facility], [address], [place], [place], [address], [place] tel:[phone] [facility] anxiety1 (chief complaint)pain (chief complaint)osteo porosis1 (chief complaint) Chronic pain syndromeGenera lized anxiety disorderOsteop orosis 3 Anselmo Donald. [address], [place], [place], [address] , [place]. tel:[phone] OFFICE/OUTPA TIENT VISIT, [facility], [address] [place], [address], [place] tel:[phone] [facility] anxiety1 (chief complaint)pain (chief complaint)heart murmur1 (chief complaint) Chronic pain syndromeGenera lized anxiety disorderTobacc o useNonrheumati c aortic regurgitation 3 Anselmo Donald. [address], [address], [place], [place], [address] , [place]. tel:[phone] OFFICE/OUTPA TIENT VISIT, [facility], [address], [place], [place], [address], [place] tel:[phone] [facility] anxiety1 (chief complaint)pain1 (chief complaint)thyro id1 (chief complaint)phos1 (chief complaint) Other disorders of phosphorus metabolismHash imoto's thyroiditisChr onic pain syndromeGenera lized anxiety disorder 3 Anselmo Forbes [address] [facility] [address], [place], [place], [address] , [place]. tel:[phone] PREV VISIT, EST, AGE 40-64 [facility], [address], [place], [place], [address], [place] tel:[phone] [facility] physical (chief complaint) Encounter for general adult medical exam w abnormal findingsMigrai ne w/o aura, not intractable, w/o status migrainosusHas himoto's thyroiditisChr onic pain syndromeGenera lized anxiety disorderCervic algiaGERD w/o esophagitisAlo peciaOveractiv e bladderPrimary insomnia Fe- 3 Anselmo Forbes [address] [address], [place], [place], [address] , [place]. tel:[phone] OFFICE/OUTPA TIENT VISIT, EST [facility], [address] [place], [address], [place] tel:[phone] [facility] anxiety1 (chief complaint)pain (chief complaint)osteo penia1 (chief complaint)hair loss1 (chief complaint) Chronic pain syndromeGenera lized anxiety disorderOther specified disorders of bone densityAlopeci a 3 Anselmo Forbes [address] [address], [place], [place], [address] , [place]. tel:[phone] OFFICE/OUTPA TIENT VISIT, EST [facility], [address] [place], [address], [place] tel:[phone] [facility] anxiety1 (chief complaint)pain (chief complaint)heada che1 (chief complaint)insom nia1 (chief complaint)eye bleeding1 (chief complaint) Chronic pain syndromeGenera lized anxiety disorderPrimar y insomniaMigrai ne w/o aura, not intractable, w/o status migrainosusCon junctival bleeding of right eye 2 Anselmo Donald. [address], [place], [place], [address] , [place]. tel:[phone] OFFICE/OUTPA TIENT VISIT, [facility], [address], [place], [place], [address], [place] tel:[phone] [facility] anxiety1 (chief complaint)pain (chief complaint)sick (chief complaint) Chronic pain syndromeGenera lized anxiety disorderViral infection 2 Briones Odilon. [address], [place], [place], [address] , [place]. tel:[phone] OFFICE/OUTPA TIENT VISIT, [facility], [address], [place], [address], [place] tel:[phone] [facility] anxiety1 (chief complaint)pain (chief complaint) Chronic pain syndromeGenera lized anxiety disorder 2 Anselmo Donald. [address], [address], [place], [place], [address] , [place]. tel:[phone] [facility], [address], [place], [place], [address], [place] tel:[phone] [facility] No Information 2 Anselmo Odilon. [address], [address], [place], [place], [address] , [place]. tel:[phone] OFFICE/OUTPA TIENT VISIT, [facility], [address], [place], [place], [address], [place] tel:[phone] [facility] anxiety1 (chief complaint)pain (chief complaint) Chronic pain syndromeGenera lized anxiety disorder Mar- 2 Anselmo Donald. [address], [place], [place], [address] , [place]. tel:[phone] OFFICE/OUTPA TIENT VISIT, [facility], [address], [place], [place], [address], [place] tel:[phone] [facility] anxiety1 (chief complaint)pain (chief complaint) Chronic pain syndromeGenera lized anxiety disorder 2 Anselmo Donald. [address], [place], [place], [address] , [place]. tel:[phone] OFFICE/OUTPA TIENT VISIT, [facility], [address], [place], [place], [address], [place] tel:[phone] [facility] pain (chief complaint)anxie ty1 (chief complaint)hypot hyroidism1 (chief complaint) Generalized anxiety disorderChroni c pain syndromeIdiopa thic progressive neuropathyHash imoto's thyroiditis 2 Briones Odilon. [address], [place], [place], [address] , [place]. tel:[phone] OFFICE/OUTPA TIENT VISIT, [facility], [address], [address], [place] tel:[phone] [facility] pain (chief complaint)anxie ty1 (chief complaint) Chronic pain syndromeGenera lized anxiety disorder 2 Anselmo Donald. [address], [place], [place], [address] , [place]. tel:[phone] OFFICE/OUTPA TIENT VISIT, [facility], [address], [place], [place], [address], [place] tel:[phone] [facility] pain (chief complaint)anxie ty1 (chief complaint)migra ine1 (chief complaint) Chronic pain syndromeGenera lized anxiety disorderMigrai ne 2 Briones Odilon. [address], [address], [place], [place], [address] , [place]. tel:[phone] OFFICE/OUTPA TIENT VISIT, [facility], [address], [place], [place], [address], [place] tel:[phone] [facility] pain (chief complaint)anxie yt1 (chief complaint)GERD1 (chief complaint) Chronic pain syndromeGenera lized anxiety disorderEsopha gitis 2 Anselmo Donald. [address], [place], [address] , [place]. tel:[phone] OFFICE/OUTPA TIENT VISIT, EST [facility], [address], [place], [place], [address], [place] tel:[phone] [facility] phos (chief complaint)pain (chief complaint)anxie ty1 (chief complaint)OAB (chief complaint) Chronic pain syndromeOther disorders of phosphorus metabolismGene ralized anxiety disorderOverac tive bladderHypothy roidism 2 Anselmo Donald. [address], [place], [place], [address] , [place]. tel:[phone] OFFICE/OUTPA TIENT VISIT, [facility], [address], [place], [place], [address], [place] tel:[phone] [facility] pain (chief complaint)anxie ty1 (chief complaint)sleep apnea1 (chief complaint) Chronic pain syndromeGenera lized anxiety disorderSleep apneaTobacco useEncounter for oth screening for malignant neoplasm of breast 2 Anselmo Donald. [address], [address], [place], [place], [address] , [place]. tel:[phone] PREV VISIT, EST, AGE 40-64 [facility], [address], [place], [place], [address], [place] tel:[phone] [facility] physical (chief complaint) Encounter for general adult medical examination without abnormal findings 2 Anselmo Donald. [address], [address], [place], [place], [address] , [place]. tel:[phone] OFFICE/OUTPA TIENT VISIT, [facility], [address], [place], [place], [address], [place] tel:[phone] [facility] pain (chief complaint)anxie ty1 (chief complaint)migra ine1 (chief complaint)insom [id number] (chief complaint) Chronic pain syndromeGenera lized anxiety disorderMigrai neInsomnia 1 Anselmo Donald. [address], [address], [place], [place], [address] , [place]. tel:[phone] OFFICE/OUTPA TIENT VISIT, [facility], [address], [place], [place], [address], [place] tel:[phone] [facility] Medicine pain (chief complaint)anxi3 ty1 (chief complaint) Chronic pain syndromeGenera lized anxiety disorder 1 Anselmo Donald. [address], [place], [place], [address] , [place]. tel:[phone] OFFICE/OUTPA TIENT VISIT, [facility], [address], [place], [place], [address], [place] tel:[phone] [facility] pain (chief complaint)anxie ty1 (chief complaint)sore throat1 (chief complaint) Acute pharyngitisAnx iolytic dependenceChro bk pain syndromeTobacc o use 1 Anselmo Donald. [address], [place], [place], [address] , [place]. tel:[phone] OFFICE/OUTPA TIENT VISIT, [facility], [address], [place], [place], [address], [place] tel:[phone] [facility] pain (chief complaint)anxie ty1 (chief complaint)COVID (chief complaint)weigh t loss1 (chief complaint) Generalized anxiety disorderChroni c pain syndromeViral infectionAbnor mal weight lossTobacco use 1 Anselmo Donald. [address], [place], [place], [address] , [place]. tel:[phone] OFFICE/OUTPA TIENT VISIT, [facility], [address], [place], [place], [address], [place] tel:[phone] [facility] pain (chief complaint)anxie ty1 (chief complaint)mammo (chief complaint)LDCT (chief complaint) Chronic pain syndromeAnxiol ytic dependenceToba accountant property useEncounter for oth screening for malignant neoplasm of breast 1 Anselmo Forbes [address], [place], [place], [address] , [place]. [phone] OFFICE/OUTPA TIENT VISIT, [facility], [address] [place], [address], [place] tel:[phone] [facility] pain (chief complaint)anxie ty1 (chief complaint)hypot hyroidism1 (chief complaint) Hypothyroidism Chronic pain syndromeAnxiol ytic dependence 1 Anselmo Forbes [address], [address], [place], [place], [address] , [place]. tel:[phone] OFFICE/OUTPA TIENT VISIT, [facility], [address] [place], [address], [place] tel:[phone] [facility] pain (chief complaint)anxie ty1 (chief complaint)pain (chief complaint) Chronic pain syndromeAnxiol ytic dependenceOver active bladder 1 Anselmo Forbes [address], [address], [address] , [place]. tel:[phone] OFFICE/OUTPA TIENT VISIT, [facility], [address] [place], [address], [place] tel:[phone] [facility] pain (chief complaint)anxie ty1 (chief complaint)OAB (chief complaint)GERD1 (chief complaint) Overactive bladderChronic pain syndromeAnxiol ytic dependenceGERD w/o esophagitis 1 Anselmo Forbes [address], [address], [address] , [place]. [phone] OFFICE/OUTPA TIENT VISIT, [facility], [address] [place], [address], [place] tel:[phone] [facility] pain (chief complaint)anxie ty1 (chief complaint)urgen cy1 (chief complaint) Overactive bladderChronic pain syndromeAnxiol ytic dependence November-0 1 Anselmo Donald. [address], [address], [place], [place], [address] , [place]. tel:[phone] OFFICE/OUTPA TIENT VISIT, [facility], [address], [place], [place], [address], [place] tel:[phone] [facility] pain (chief complaint)anxie ty1 (chief complaint) Chronic pain syndromeAnxiol ytic dependence Oct-0 1 Anselmo Donald. [address], [address], [place], [place], [address] , [place]. tel:[phone] OFFICE/OUTPA TIENT VISIT, [facility], [address], [place], [place], [address], [place] tel:[phone] [facility] pain1 (chief complaint)anxie ty1 (chief complaint) Chronic pain syndromeAnxiol ytic dependence Sep-0 1 Anselmo Donald. [address], [place], [place], [address] , [place]. tel:[phone] OFFICE/OUTPA TIENT VISIT, [facility], [address], [place], [place], [address], [place] tel:[phone] [facility] pain (chief complaint)anxie ty1 (chief complaint)heada che1 (chief complaint) MigraineChroni c pain syndromeAnxiol ytic dependence 1 Anselmo Donald. [address], [address], [place], [place], [address] , [place]. tel:[phone] OFFICE/OUTPA TIENT VISIT, [facility], [address], [place], [place], [address], [place] tel:[phone] [facility] pain (chief complaint)anxie ty1 (chief complaint)osteo penia1 (chief complaint)edema 1 (chief complaint)uric acid1 (chief complaint) EdemaChronic pain syndromeGenera lized anxiety disorderOther specified disorder of bone densityAsympto matic hyperuricemia Dec-3 0- 0 Anselmo Donald. [address], [address], [place], [place], [address] , [place]. tel:[phone] [facility], [address], [place], [place], [address], [place] tel:[phone] [facility] physical (chief complaint) Encounter for general adult medical examination without abnormal findings 0 Anselmo Donald. [address], [address], [place], [place], [address] , [place]. [phone] OFFICE/OUTPA TIENT VISIT, [facility], [address], [place], [place], [address], [place] tel:[phone] [facility] pain1 (chief complaint)anxie ty1 (chief complaint)sleep apnea1 (chief complaint)migra ine1 (chief complaint) Sleep apneaChronic pain syndromeMigrai neGeneralized anxiety disorder 0 Anselmo Donald. [address], [place], [place], [address] , [place]. tel:[phone] Referring Provider: [employer] [address], [place], [place], [address]. tel:[phone] OFFICE/OUTPA TIENT VISIT, [facility], [address], [place], [place], [address], [place] tel:[phone] [facility] pain (chief complaint)anxie ty1 (chief complaint)sleep apnea1 (chief complaint)heada che1 (chief complaint) Sleep apneaMigraineG eneralized anxiety disorderChroni c pain syndrome 0 Anselmo Donald. [address], [place], [place], [address] , [place]. tel:[phone] Referring Provider: [employer] [address], [place], [place], [address]. tel:[phone] OFFICE/OUTPA TIENT VISIT, [facility], [address], [place], [place], [address], [place] tel:[phone] [facility] pain (chief complaint)anxie ty1 (chief complaint)sleep apnea1 (chief complaint)heada che1 (chief complaint) Sleep apneaChronic pain syndromeAnxiol ytic dependenceMigr gerald 0 Anselmo Donald. [address], [place], [place], [address] , [place]. tel:[phone] Referring Provider: [employer] [address], [place], [place], [address]. tel:[phone] OFFICE/OUTPA TIENT VISIT, [facility], [address], [place], [place], [address], [place] tel:[phone] [facility] pain (chief complaint)anxie ty1 (chief complaint)hypot hyroidism1 (chief complaint)leg (chief complaint) Sleep apneaChronic pain syndromeGenera lized anxiety disorderHypoth yroidismCellul itis of right lower limb 0 Anselmo Donald. [address], [place], [place], [address] , [place]. tel:[phone] Referring Provider: [employer] [address], [place], [place], [address]. tel:[phone] OFFICE/OUTPA TIENT VISIT, [facility], [address], [place], [place], [address], [place] tel:[phone] [facility] pain (chief complaint)anxie ty1 (chief complaint) Sleep apneaChronic pain syndromeGenera lized anxiety disorder 0 Anselmo Donald. [address], [place], [place], [address] , [place]. tel:[phone] Referring Provider: [employer] [address], [place], [place], [address]. tel:[phone] OFFICE/OUTPA TIENT VISIT, [facility], [address], [place], [place], [address], [place] tel:[phone] [facility] pain (chief complaint)anxie ty1 (chief complaint)GERD1 (chief complaint)sleep apnea1 (chief complaint) Sleep apneaChronic pain syndromeGenera lized anxiety disorderGERD w/ esophagitis Esdras-0 0 Anselmo Donald. [address], [place], [place], [address] , [place]. tel:[phone] Referring Provider: [employer] [address], [place], [place], [address]. tel:[phone] OFFICE/OUTPA TIENT VISIT, [facility], [address], [place], [place], [address], [place] tel:[phone] [facility] pain1 (chief complaint)anxie ty1 (chief complaint)sleep apnea1 (chief complaint) Sleep apneaGeneraliz ed anxiety disorderChroni c pain syndrome November-0 0 Anselmo Forbes [address], [place], [place], [address] , [place]. tel:[phone] Referring Provider: [employer] [address], [place], [place], [address]. tel:[phone] OFFICE/OUTPA TIENT VISIT, [facility], [address], [place], [place], [address], [place] tel:[phone] [facility] pain (chief complaint)anxie ty1 (chief complaint)sleep apnea1 (chief complaint)tobac co1 (chief complaint) Sleep apneaChronic pain syndromeGenera lized anxiety disorderTobacc o use Apr-0 0 Anselmo Forbes [address], [place], [place], [address] , [place]. tel:[phone] Referring Provider: [employer] [address], [place], [place], [address]. tel:[phone] OFFICE/OUTPA TIENT VISIT, [facility], [address], [place], [place], [address], [place] tel:[phone] [facility] sleep apnea1 (chief complaint)sick (chief complaint)pain (chief complaint)anxie ty1 (chief complaint)heada che1 (chief complaint) Viral infection, unspecifiedMig raineChronic pain syndromeGenera lized anxiety disorderSleep apneaTobacco use 0 Anselmo Donald. [address], [place], [place], [address] , [place]. tel:[phone] Referring Provider: [employer] [address], [place], [place], [address]. tel:[phone] OFFICE/OUTPA TIENT VISIT, [facility], [address], [place], [place], [address], [place] tel:[phone] [facility] anxiety1 (chief complaint)pain (chief complaint)migra ine1 (chief complaint) MigraineChroni c pain syndromeGenera lized anxiety disorder Fe 0 Anselmo Forbes [address], [place], [place], [address] , [place]. tel:[phone] Referring Provider: [employer] [address], [place], [place], [address]. tel:[phone] OFFICE/OUTPA TIENT VISIT, [facility], [address], [place], [place], [address], [place] tel:[phone] [facility] anxiety1 (chief complaint)chron ic pain1 (chief complaint)IBS1 (chief complaint)heada che1 (chief complaint) Generalized anxiety disorderChroni c pain syndromeIrrita ble bowel syndromeMigrai ne 0 Anselmo Forbes [address], [place], [place], [address] , [place]. tel:[phone] Referring Provider: [employer] [address], [place], [place], [address]. tel:[phone] OFFICE/OUTPA TIENT VISIT, [facility], [address], [place], [place], [address], [place] tel:[phone] [facility] pain (chief complaint)anxie ty1 (chief complaint)gassy (chief complaint) Body mass index (BMI) 36.0-36.9, adultGeneraliz ed anxiety disorderChroni c pain syndromeIrrita ble bowel syndrome Jun- 9 Anselmo Donald. [address], [address], [place], [place], [address] , [place]. tel:[phone] Referring Provider: [employer] [address], [place], [place], [address]. tel:[phone] PREV VISIT, EST, AGE 40-64 [facility], [address], [place], [place], [address], [place] tel:[phone] [facility] Physical (chief complaint) Encntr for general adult medical exam w/o abnormal findings 9 Anselmo Donald. [address], [place], [place], [address] , [place]. tel:[phone] Referring Provider: [employer] [address], [place], [place], [address]. tel:[phone] OFFICE/OUTPA TIENT VISIT, EST [facility], [address], [place], [place], [address], [place] tel:[phone] [facility] anxiety1 (chief complaint)chron ic pain1 (chief complaint) Generalized anxiety disorderChroni c pain syndrome Mar-3 9 Anselmo Donald. [address], [place], [place], [address] , [place]. tel:[phone] Referring Provider: [employer] [address], [place], [place], [address]. tel:[phone] OFFICE/OUTPA TIENT VISIT, EST [facility], [address], [place], [place], [address], [place] tel:[phone] [facility] osteopenia1 (chief complaint)thyro id1 (chief complaint)GERD1 (chief complaint)chron ic pain1 (chief complaint)anxie ty1 (chief complaint)gluco se1 (chief complaint) GERD w/o esophagitisHyp othyroidismChr onic pain syndromeGenera lized anxiety disorderHyperg lycemiaOther specified disorder of bone densityAllergi c rhinitis 9 Anselmo Donald. [address], [facility] A, [place], [place], [address] , [place]. tel:[phone] Referring Provider: Carolina Gaming [facility] A, [place], [place], [address]. tel:[phone] OFFICE/OUTPA TIENT VISIT, [facility], [address] , [place], [place], [address], [place] tel:[phone] [facility] chronic pain1 (chief complaint)anxie ty1 (chief complaint)thyro id1 (chief complaint)GERD1 (chief complaint) Chronic pain syndromeGenera lized anxiety disorderHypoth yroidismGERD w/o esophagitis 9 Anselmo Donald. [address], [facility] A, [place], [place], [address] , [place]. tel:[phone] OFFICE/OUTPA TIENT VISIT, [facility], [address] [place], [address], [place] tel:[phone] [facility] toothache1 (chief complaint)chron ic pain1 (chief complaint)anxie ty1 (chief complaint)UTI1 (chief complaint) Atypical facial painGeneralize d anxiety disorderChroni c pain syndromeUrinar y tract infection 9 Anselmo Donald. [address] [facility], [place], [place], [address] , [place]. tel:[phone] Referring Provider: [employer] [address] [facility] A, [place], [place], [address]. tel:[phone] OFFICE/OUTPA TIENT VISIT, [facility], [address] [place], [address], [place] tel:[phone] [facility] UTI1 (chief complaint)pain1 (chief complaint)anxie ty1 (chief complaint) Body mass index (BMI) 38.0-38.9, adultUrinary tract infectionGener alized anxiety disorderChroni c pain syndromeCardia c murmur Esdras-0 9 Anselmo Donald. [address], [place], [place], [address] , [place]. tel:[phone] Referring Provider: [employer] [address], [place], [place], [address]. tel:[phone] OFFICE/OUTPA TIENT VISIT, [facility], [address], [place], [place], [address], [place] tel:[phone] [facility] anxiety1 (chief complaint)chron ic pain1 (chief complaint)GERD1 (chief complaint) GERD w/o esophagitisChr onic pain syndromeGenera lized anxiety disorderEncoun ter for screening for osteoporosis 9 Anselmo Donald. [address], [place], [place], [address] , [place]. tel:[phone] Referring Provider: [employer] [address], [place], [place], [address]. tel:[phone] OFFICE/OUTPA TIENT VISIT, [facility], [address], [place], [place], [address], [place] tel:[phone] [facility] chronic pain1 (chief complaint)anxie ty1 (chief complaint) Chronic pain syndromeGenera lized anxiety disorder Apr-0 2 9 Anselmo Donald. [address], [place], [place], [address] , [place]. tel:[phone] Referring Provider: [employer] [address], [place], [place], [address]. tel:[phone] OFFICE/OUTPA TIENT VISIT, [facility], [address], [address], [place] tel:[phone] [facility] Anxiety1 (chief complaint)chron ic pain1 (chief complaint) Chronic pain syndromeGenera lized anxiety disorder Sep-0 9 Anselmo Donald. [address], [place], [place], [address] , [place]. tel:[phone] Referring Provider: Odilon Briones, [address], [place], [place], [address]. tel:[phone] OFFICE/OUTPA TIENT VISIT, [facility], [address], [place], [address], tel:[phone] [facility] tobacco1 (chief complaint)corn1 (chief complaint)chron ic pain1 (chief complaint)anxie ty1 (chief complaint)mammo (chief complaint) Chronic pain syndromeGenera lized anxiety disorderInconc lusive mammogramTobac co useCorns and callosities 9 Anselmo Donald. [address], [place], [place], [address] , [place]. [phone] Referring Provider: [employer] [facility] A, [place], [place], [address]. tel:[phone] OFFICE/OUTPA TIENT VISIT, [facility], [address] [place] [address] [address], [place], [address], [place] tel:[phone] [facility] chronic pain1 (chief complaint)anxie ty 1 (chief complaint)gerd1 (chief complaint)gluco se1 (chief complaint)fatig ue1 (chief complaint) Generalized anxiety disorderChroni c pain syndromeGERD w/o esophagitisFat igueHyperglyce [facility] [place] 9 Anselmo Donald. [address], [place], [place], [address] , [place]. tel:[phone] Referring Provider: Odilon Briones, [address], [place], [place], [address]. tel:[phone] OFFICE/OUTPA TIENT VISIT, [facility], [address], [address], [place] tel:[phone] [facility] mammo (chief complaint)smoki ng (chief complaint)chron ic pain1 (chief complaint)anxie ty1 (chief complaint) Body mass index (BMI) 38.0-38.9, adultChronic pain syndromeInconc lusive mammogramGener alized anxiety disorderScreen ing for lung ca 8 Anselmo Forbes [address], [place], [place], [address] , [place]. [phone] Referring Provider: [employer] [address], [place], [place], [address]. tel:[phone] OFFICE/OUTPA TIENT VISIT, EST [facility], [address], [place], [place], [address], [place] tel:[phone] [facility] glucose (chief complaint)chron ic pain1 (chief complaint)anxie ty1 (chief complaint) Generalized anxiety disorderBariat colette surgery statusChronic pain syndromeHyperg lycemiaHeadach e 8 Anselmo Forbes [address], [place], [place], [address] , [place]. [phone] Referring Provider: [employer] [address], [place], [place], [address]. tel:[phone] PREV VISIT, EST, AGE 40-64 [facility], [address], [place], [place], [address], [place] tel:[phone] [facility] Physical (chief complaint) Encounter for general adult medical exam w abnormal findingsHypoth yroidismCardia c murmurChronic pain syndromeHeadac he 8 Anselmo Forbes [address], [place], [place], [address] , [place]. [phone] Referring Provider: [employer] [address], [place], [place], [address]. tel:[phone] OFFICE/OUTPA TIENT VISIT, EST [facility], [address], [place], [place], [address], [place] tel:[phone] [facility] chronic pain1 (chief complaint)anxie ty1 (chief complaint)thyro id1 (chief complaint)sleep apnea1 (chief complaint) Body mass index (BMI) 39.0-39.9, adultHypothyro idismChronic pain syndromeGenera lized anxiety disorderSleep apnea 8 Anselmo Donald. [address] [facility] [address], [place], [place], [address] , [place]. [phone] OFFICE/OUTPA TIENT VISIT, [facility], [address], [place], [place], [address], [place] [phone] [facility] thyroid1 (chief complaint)chron ic pain1 (chief complaint)GERD1 (chief complaint)anxie ty1 (chief complaint) HeadacheBariat colette surgery statusGERD w/ esophagitisChr onic pain syndromeHypoth yroidismGenera lized anxiety disorder 8 Anselmo Donald. [address], [place], [place], [address] , [place]. [phone] Referring Provider: Odilon Briones [address] [place] [address] A, [place], [place], [address]. tel:[phone] OFFICE/OUTPA TIENT VISIT, [facility], [address], [place], [place], [address], [place] tel:[phone] [facility] headache1 (chief complaint)anxie ty1 (chief complaint)chron ic pain1 (chief complaint)memor y loss1 (chief complaint) Body mass index (BMI) 40.0-44.9, adultChronic pain syndromeHeadac heMemory lossGeneralize d anxiety disorder 8 Anselmo Donald. [address], [place], [place], [address] , [place]. [phone] Referring Provider: [employer] [facility] A, [place], [place], [address]. tel:[phone] OFFICE/OUTPA TIENT VISIT, [facility], [address], [place], [place], [address], [place] tel:[phone] [facility] chronic pain1 (chief complaint)anxie ty1 (chief complaint)memor y loss1 (chief complaint) Body mass index (BMI) 40.0-44.9, adultMemory lossBariatric surgery statusGenerali zed anxiety disorderChroni c pain syndrome Oct-0 8 Anselmo Donald. [address], [place], [place], [address] , [place]. tel:[phone] Referring Provider: [employer] [address], [place], [place], [address]. tel:[phone] OFFICE/OUTPA TIENT VISIT, [facility], [address], [place], [place], [address], [place] tel:[phone] [facility] chronic pain1 (chief complaint)anxie ty1 (chief complaint)memor y loss (chief complaint) Memory lossChronic pain syndromeGenera lized anxiety disorderBariat colette surgery status 8 Anselmo Forbes [address], [place], [place], [address] , [place]. tel:[phone] Referring Provider: Odilon Briones [address], [place], [place], [address]. tel:[phone] OFFICE/OUTPA TIENT VISIT, [facility], [address], [place], [place], [address], [place] tel:[phone] [facility] chronic pain (chief complaint)anxie ty1 (chief complaint)obeis y (chief complaint)sleep apnea1 (chief complaint) Chronic pain syndromeGenera lized anxiety disorderBody mass index (BMI) 40.0-44.9, adultSleep apnea Feb-0 8 Anselmo Forbes [address], [place], [place], [address] , [place]. [phone] OFFICE/OUTPA TIENT VISIT, [facility], [address], [place], [place], [address], [place] tel:[phone] [facility] chronic pain1 (chief complaint)anxie ty1 (chief complaint)heada che1 (chief complaint)HCTZ (chief complaint)GERD1 (chief complaint) HeadacheGenera lized anxiety disorderGERD w/ esophagitisChr onic pain syndrome 0-201 8 Anselmo Donald. [address], [place], [place], [address] , [place]. tel:[phone] Referring Provider: [employer] [address], [place], [place], [address]. tel:[phone] OFFICE/OUTPA TIENT VISIT, [facility], [address], [place], [place], [address], [place] tel:[phone] [facility] chronic pain (chief complaint)anxie ty1 (chief complaint)heada che1 (chief complaint)mammo gram1 (chief complaint) Chronic pain syndromeInconc lusive mammogramGener alized anxiety disorderHeadac he 7 Anselmo Donald. [address], [place], [place], [address] , [place]. [phone] Referring Provider: Carolina Gaming [address], [place], [place], [address]. tel:[phone] OFFICE/OUTPA TIENT VISIT, [facility], [address], [place], [place], [address], [place] tel:[phone] [facility] chronic pain (chief complaint)anxie ty1 (chief complaint)breas t1 (chief complaint)bypas s1 (chief complaint) Generalized anxiety disorderInconc lusive mammogramBaria tric surgery statusChronic pain syndrome 7 Anselmo Donald. [address], [place], [place], [address] , [place]. [phone] Referring Provider: [address], [place], [place], [address]. tel:[phone] OFFICE/OUTPA TIENT VISIT, [facility], [address], [place], [place], [address], [place] tel:[phone] [facility] back pain1 (chief complaint)anxie ty1 (chief complaint)GERD1 (chief complaint)breas t1 (chief complaint) GERD w/ esophagitisGen eralized anxiety disorderChroni c pain syndromeInconc lusive mammogram 7 Anselmo Fig[address], [place], [place], [address] , [place]. tel:[phone] PREV VISIT, EST, AGE 40-64 [facility], [address], [place], [place], [address], [place] tel:[phone] [facility] PHysical (chief complaint) Encounter for general adult medical exam w abnormal findingsGenera lized anxiety disorderSleep apneaHypothyro idism [address], [address], [place], [place], [address] , [place]. tel:[phone] Referring Provider: [address], [place], [place], [address]. tel:[phone] OFFICE/OUTPA TIENT VISIT, EST [facility], [address], [place], [place], [address], [place] tel:[phone] [facility] anxiety1 (chief complaint)heada che1 (chief complaint)chron ic pain1 (chief complaint)GERD1 (chief complaint) Generalized Anxiety DisorderChroni c pain syndromeGERD w/o esophagitisHea dache [address], [place], [place], [address] , [place]. [phone] Referring Provider: [address], [place], [place], [address]. tel:[phone] OFFICE/OUTPA TIENT VISIT, EST [facility], [address], [place], [place], [address], [place] tel:[phone] [facility] chronic pain1 (chief complaint)anxie ty1 (chief complaint)GERD1 (chief complaint)obeis ty1 (chief complaint) Chronic pain syndromeGenera lized anxiety disorderEncoun ter for oth screening for malignant neoplasm of breastGERD w/o esophagitis 7 Briones Odilon. [address], [place], [place], [address] , [place]. tel:[phone] Referring Provider: [address], [place], [place], [address]. tel:[phone] OFFICE/OUTPA TIENT VISIT, [facility], [address], [place], [place], [address], [place] tel:[phone] [facility] Medicine anxiety1 (chief complaint)heada che1 (chief complaint)thyoi d (chief complaint)pain1 (chief complaint) HeadacheGenera lized anxiety disorderChroni c pain syndromeHypoth yroidism 7 Anselmo Donald. [address], [place], [place], [address] , [place]. tel:[phone] Referring Provider: Carolina Gaming [facility] A, [place], [place], [address]. tel:[phone] OFFICE/OUTPA TIENT VISIT, [facility], [address], [place], [place], [address], [place] tel:[phone] [facility] Medicine obeisty1 (chief complaint)sleep apnea1 (chief complaint)anxie ty1 (chief complaint)chron ic pain (chief complaint) Chronic pain syndromeBody mass index (BMI) 40.0-44.9, adultGeneraliz ed anxiety disorderSleep apnea Anselmo Donald. [address], [place], [place], [address] , [place]. tel:[phone] Referring Provider: Odilon Briones [address], [place], [place], [address]. tel:[phone] OFFICE/OUTPA TIENT VISIT, [facility], [address], [address], [place] tel:[phone] [facility] Medicine anxiety1 (chief complaint)back pain1 (chief complaint)HTN (chief complaint)heada che1 (chief complaint) HeadacheGenera lized anxiety disorderChroni c pain syndromeEssent ial (primary) hypertension 7 Anselmo Donald. [address], [place], [place], [address] , [place]. tel:[phone] Referring Provider: Carolina [address], [place], [place], [address]. tel:[phone] OFFICE/OUTPA TIENT VISIT, [facility], [address], [place], [place], [address], [place] tel:[phone] [facility] anxiety1 (chief complaint)chron ic pain1 (chief complaint)obesi ty1 (chief complaint)heada che1 (chief complaint) Body mass index (BMI) 40.0-44.9, adultHeadacheG eneralized anxiety disorderChroni c pain syndrome 7 Anselmo Donald. [address], [place], [place], [address] , [place]. tel:[phone] Referring Provider: Carolina [address], [place], [place], [address]. tel:[phone] OFFICE/OUTPA TIENT VISIT, [facility], [address], [place], [place], [address], [place] tel:[phone] [facility] anxiety1 (chief complaint)back pain1 (chief complaint)heada che1 (chief complaint)GERD1 (chief complaint) GERD with esophagitisGen eralized anxiety disorderChroni c pain syndromeHeadac he 7 Anselmo Donald. [address], [place], [place], [address] , [place]. tel:[phone] Referring Provider: Carolina [address], [place], [place], [address]. tel:[phone] OFFICE/OUTPA TIENT VISIT, [facility], [address], [place], [place], [address], [place] tel:[phone] [facility] back pain1 (chief complaint)anxie ty1 (chief complaint) Chronic pain syndromeGenera lized anxiety disorder 7 Briones Odilon. [address], [place], [place], [address] , [place]. tel:[phone] Referring Provider: Carolina [address], [place], [place], [address]. tel:[phone] OFFICE/OUTPA TIENT VISIT, [facility], [address], [place], [place], [address], [place] tel:[phone] [facility] anxiety1 (chief complaint)back pain1 (chief complaint)HTN (chief complaint)GERD1 (chief complaint)Sick (chief complaint) Acute sinusitisGERD w/ esophagitisGen eralized anxiety disorderChroni c pain syndrome 6 Anselmo Forbes [address], [place], [place], [address] , [place]. tel:[phone] Referring Provider: [employer]oil[place] [address], [place], [place], [address]. tel:[phone] OFFICE/OUTPA TIENT VISIT, [facility], [address], [place], [place], [address], [place] tel:[phone] [facility] anxiety1 (chief complaint)chron ic pain1 (chief complaint)GERD1 (chief complaint) Chronic pain syndromeGenera lized anxiety disorderGERD w/ esophagitis 6 Anselmo Fig[address], [place], [place], [address] , [place]. tel:[phone] Referring Provider: Carolina [address], [place], [place], [address]. tel:[phone] OFFICE/OUTPA TIENT VISIT, [facility], [address], [place], [place], [address], [place] tel:[phone] [facility] chronic pain (chief complaint)anxie ty1 (chief complaint)sleep apnea1 (chief complaint) Chronic pain syndromeGenera lized anxiety disorderSleep apneaTobacco use 6 Anselmo Forbes [address], [place] [address] , [place]. tel:[phone] Referring Provider: Carolina [address], [place], [place], [address]. tel:[phone] OFFICE/OUTPA TIENT VISIT, EST [facility], [address], [place], [place], [address], [place] tel:[phone] [facility] chronic pain1 (chief complaint)anxie ty1 (chief complaint)low D (chief complaint)water (chief complaint) Essential (primary) hypertensionHy pothyroidismCh ronic pain syndromeGenera lized anxiety disorder Mar-2 6 Anselmo Donald. [address], [place], [place], [address] , [place]. [phone] Referring Provider: Carolina Gaming [facility] Daniel, [place], [place], [address]. tel:[phone] PREV VISIT, EST, AGE 40-64 [facility], [address], [place], [place], [address], [place] tel:[phone] [facility] Physical (chief complaint) Encounter for general adult medical exam w abnormal findingsGERD with esophagitisHyp othyroidismMem ory loss Feb-3 6 Anselmo Forbes [address], [place], [place], [address] , [place]. [phone] Referring Provider: Carolina Gaming [facility] A, [place], [place], [address]. tel:[phone] OFFICE/OUTPA TIENT VISIT, EST [facility], [address], [place], [place], [address], [place] tel:[phone] [facility] memory loss1 (chief complaint)chron ic pain (chief complaint)anxie ty1 (chief complaint)HTN (chief complaint) Memory lossChronic pain syndromeGenera lized anxiety disorderEssent ial (primary) hypertension Feb-0 6 Anselmo Forbes [address], [place], [place], [address] , [place]. [phone] Referring Provider: Carolina [address], [place], [place], [address]. tel:[phone] OFFICE/OUTPA TIENT VISIT, [facility], [address], [place], [place], [address], [place] tel:[phone] [facility] back apin (chief complaint)hypot hyroidism1 (chief complaint)HTN (chief complaint)Anxie ty1 (chief complaint) Chronic pain syndromeEdemaH ypothyroidismG eneralized anxiety disorder 6 Anselmo Donald. [address], [place], [place], [address] , [place]. tel:[phone] Referring Provider: Carolina [address], [place], [place], [address]. tel:[phone] OFFICE/OUTPA TIENT VISIT, [facility], [address], [place], [place], [address], [place] tel:[phone] [facility] anxiety1 (chief complaint)chron ic pain1 (chief complaint)GERD1 (chief complaint) Chronic pain syndromeGERD w/ esophagitisGen eralized anxiety disorder 6 Anselmo Donald. [address], [place], [place], [address] , [place]. [phone] Referring Provider: Carolina [address], [place], [place], [address]. tel:[phone] OFFICE/OUTPA TIENT VISIT, [facility], [address], [place], [place], [address], [place] tel:[phone] [facility] Edema1 (chief complaint)chorn ic pain (chief complaint)anxie ty1 (chief complaint)GERD1 (chief complaint) GERD w/ esophagitisChr onic pain syndromeEdemaG eneralized anxiety disorder Oct- 6 Anselmo Donald. [address], [place], [place], [address] , [place]. tel:[phone] Referring Provider: Odilon Briones, [address], [place], [place], [address]. tel:[phone] OFFICE/OUTPA TIENT VISIT, [facility], [address], [place], [place], [address], [place] tel:[phone] [facility] chronic pain (chief complaint)anxie ty1 (chief complaint)GERD1 (chief complaint)water retention (chief complaint) GERD w/ esophagitisGen eralized anxiety disorderChroni c pain syndromeEdema Sep-3 0- 6 Anselmo Donald. [address], [place], [place], [address] , [place]. [phone] Referring Provider: [address], [place], [place], [address]. tel:[phone] OFFICE/OUTPA TIENT VISIT, [facility], [address], [place], [place], [address], [place] tel:[phone] [facility] GERD1 (chief complaint)chron ic pain1 (chief complaint)anxie ty1 (chief complaint) GERD w/ esophagitisChr onic pain syndrome Sep-0 2 6 Anselmo Donald. [address], [place], [place], [address] , [place]. [phone] Referring Provider: Carolina [address], [place], [place], [address]. tel:[phone] OFFICE/OUTPA TIENT VISIT, [facility], [address], [place], [place], [address], [place] tel:[phone] [facility] chronic pain1 (chief complaint)anxie ty1 (chief complaint)GERD1 (chief complaint)shoul osvaldo pain (chief complaint) GERD with esophagitisChr onic pain syndromeGenera lized anxiety disorderPain in left shoulder Fe-0 4 6 Anselmo Forbes [address], [place], [place], [address] , [place]. tel:[phone] Referring Provider: [address], [place], [place], [address]. tel:[phone] OFFICE/OUTPA TIENT VISIT, [facility], [address], [place], [place], [address], [place] tel:[phone] [facility] chronic pain1 (chief complaint)anxie ty1 (chief complaint)bone density1 (chief complaint)band surgery1 (chief complaint) Chronic pain syndromeGenera lized anxiety disorderEncoun ter for screening for osteoporosisEn counter for oth screening for malignant neoplasm of breast 6 Anselmo Donald. [address], [place], [place], [address] , [place]. [phone] Referring Provider: Carolina Gaming [facility] [address], [place], [place], [address]. tel:[phone] OFFICE/OUTPA TIENT VISIT, [facility], [address] [place], [address], [place] tel:[phone] [facility] chronic pain1 (chief complaint)anxie ty1 (chief complaint)vomit ing (chief complaint)GERD1 (chief complaint) GERD w/ esophagitisDys phagiaOther spondylosis, lumbar regionGenerali zed anxiety disorder 5 Anselmo Forbse [address], [place], [place], [address] , [place]. [phone] Referring Provider: Carolina Gaming [facility] A, [place], [place], [address]. tel:[phone] OFFICE/OUTPA TIENT VISIT, [facility], [address], [place], [place], [address], [place] tel:[phone] [facility] GERD1 (chief complaint)chron ic pain1 (chief complaint)anxie ty1 (chief complaint) Gastro-esophag eal reflux disease with esophagitisEnc ounter for screening for osteoporosisOt her spondylosis, lumbar regionGenerali zed Anxiety Disorder 0 5 Anselmo Forbes [address], [place], [place], [address] , [place]. tel:[phone] Referring Provider: Carolina [address], [place], [place], [address]. tel:[phone] OFFICE/OUTPA TIENT VISIT, [facility], [address], [place], [place], [address], [place] tel:[phone] [facility] GERD (chief complaint)gERD1 (chief complaint)back pain1 (chief complaint)Anxei ty1 (chief complaint) Dietary surveillance and counselingGERD with esophagitisGen eralized anxiety disorderOther spondylosis, lumbar regionBilatera l primary osteoarthritis of knee 8 5 Anselmo Donald. [address], [place], [place], [address] , [place]. tel:[phone] Referring Provider: Carolina [address], [place], [place], [address]. tel:[phone] OFFICE/OUTPA TIENT VISIT, [facility], [address], [place], [place], [address], [place] tel:[phone] [facility] chronic pain (chief complaint)anxie ty (chief complaint)GERd (chief complaint) Dietary surveillance and counselingBP - High blood pressureEsopha geal refluxGenerali zed anxiety disorderPain in joint involving lower leg Mar- 0- 5 Anselmo Forbes [address], [place], [place], [address] , [place]. [phone] Referring Provider: Carolina Gaming [address], [place], [place], [address]. tel:[phone] OFFICE/OUTPA TIENT VISIT, [facility], [address], [place], [place], [address], [place] tel:[phone] [facility] chronic apin (chief complaint)anxie ty (chief complaint)hypot hyroidism (chief complaint)GERD (chief complaint) Dietary surveillance and counselingUnsp ecified hypothyroidism Esophageal refluxGenerali zed anxiety disorderPain in joint involving lower leg 5 Anselmo oFrbes [address], [place], [place], [address] , [place]. tel:[phone] Referring Provider: Carolina [address], [place], [place], [address]. tel:[phone] OFFICE/OUTPA TIENT VISIT, EST [facility], [address], [place], [place], [address], [place] tel:[phone] [facility] Medicine GERD (chief complaint)UTI (chief complaint)UTI (chief complaint)vitam in D (chief complaint) Esophageal refluxAcute urinary tract infectionScree khloe for colon cancerDietary surveillance and counselingVita min deficiency 5 Anselmo Donald. [address], [place], [place], [address] , [place]. [phone] Referring Provider: Carolina [address], [place], [place], [address]. tel:[phone] PREV VISIT, EST, AGE 40-64 [facility], [address], [place], [place], [address], [place] tel:[phone] [facility] PHysical (chief complaint) Dietary surveillance and counselingRout ine medical exam 5 Anselmo Donald. [address], [place], [place], [address] , [place]. tel:[phone] Referring Provider: Carolina [address], [place], [place], [address]. tel:[phone] OFFICE/OUTPA TIENT VISIT, EST [facility], [address], [place], [place], [address], [place] tel:[phone] [facility] depressed (chief complaint)chron ic pain (chief complaint)GERD (chief complaint) Dietary surveillance and counselingGERD - Gastro-esophag eal reflux diseaseChronic painChronic depression 5 Anselmo Fig[address], [place], [place], [address] , [place]. [phone] Referring Provider: Carolina [address], [place], [place], [address]. tel:[phone] OFFICE/OUTPA TIENT VISIT, [facility], [address], [place], [place], [address], [place] tel:[phone] [facility] finger bump (chief complaint)chorn ic pain (chief complaint)heada camelia (chief complaint) Dietary surveillance and counselingUnsp ecified disorder of skin and subcutaneous tissueLumbagoG eneralized anxiety disorderHeadac he 5 Anselmo Donald. [address], [place], [place], [address] , [place]. tel:[phone] Referring Provider: Carolina Gaming [facility] A, [place], [place], [address]. tel:[phone] OFFICE/OUTPA TIENT VISIT, [facility], [address], [place], [place], [address], [place] tel:[phone] [facility] headache (chief complaint)back pain (chief complaint)anxie ty (chief complaint) Dietary surveillance and counselingHead acheCHRONIC PAIN NECGeneralized anxiety disorder 5 Anselmo Donald. [address], [place], [place], [address] , [place]. tel:[phone] Referring Provider: Carolina Gaming [facility], [place], [place], [address]. tel:[phone] OFFICE/OUTPA TIENT VISIT, [facility], [address], [place], [place], [address], [place] [phone] [facility] chronic pain (chief complaint)anxie ty (chief complaint)HLP (chief complaint)A1c (chief complaint) Dietary surveillance and counselingLumb agoGeneralized anxiety disorderMetabo lic SyndromeOther and unspecified hyperlipidemia 5 Anselmo Donald. [address], [place], [place], [address] , [place]. tel:[phone] Referring Provider: Carolina Gaming [address], [place], [place], [address]. tel:[phone] OFFICE/OUTPA TIENT VISIT, [facility], [address], [place], [place], [address], [place] [phone] [facility] back pain (chief complaint)anxie ty (chief complaint) Dietary surveillance and counselingLumb agoGeneralized anxiety disorderOpioid type dependence, unspecified use 5 Anselmo Donald. [address], [place], [place], [address] , [place]. tel:[phone] Referring Provider: Carolina Gaming [address], [place], [place], [address]. tel:[phone] OFFICE/OUTPA TIENT VISIT, [facility], [address], [place], [place], [address], [place] [phone] [facility] back pain (chief complaint)anxie ty (chief complaint)hypot hyroidism (chief complaint)sleep apnea (chief complaint) Dietary surveillance and counselingHypo thyroidismLumb agoSleep ApneaGeneraliz ed anxiety disorder 5 Anselmo Donald. [address], [place], [place], [address] , [place]. tel:[phone] Referring Provider: Carolina Gaming [address], [place], [place], [address]. tel:[phone] OFFICE/OUTPA TIENT VISIT, [facility], [address], [place], [place], [address], [place] [phone] [facility] chronic pain (chief complaint)anxie ty (chief complaint)GERD (chief complaint)weeig ht loss (chief complaint)sick (chief complaint) Obesity, MorbidPain in joint involving lower legGERDLoss of weight 4 Anselmo Donald. [address], [place], [place], [address] , [place]. tel:[phone] Referring Provider: Carolina Gaming [address], [place], [place], [address]. tel:[phone] OFFICE/OUTPA TIENT VISIT, [facility], [address], [place], [place], [address], [place] tel:[phone] [facility] back pain (chief complaint)anxie ty (chief complaint) Dietary surveillance and counselingLumb agoGeneralized anxiety disorder 4 Anselmo Donald. [address], [place], [place], [address] , [place]. tel:[phone] Referring Provider: Odilon Briones, [address], [place], [place], [address]. tel:[phone] OFFICE/OUTPA TIENT VISIT, [facility], [address], [place], [place], [address], [place] tel:[phone] [facility] back pain (chief complaint)anxie ty (chief complaint)weigh t loss (chief complaint) Dietary surveillance and counselingObes ityGeneralized anxiety disorderLumbag o 4 Anselmo Donald. [address], [place], [place], [address] , [place]. [phone] Referring Provider: Carolina Gaming [address], [place], [place], [address]. tel:[phone] OFFICE/OUTPA TIENT VISIT, [facility], [address], [place], [place], [address], [place] tel:[phone] [facility] anxiety (chief complaint)LBP (chief complaint)hypot hyroidism (chief complaint)HLP (chief complaint) Dietary surveillance and counselingLumb agoHypothyroid ismGeneralized anxiety disorder 4 Anselmo Donald. [address], [place], [place], [address] , [place]. tel:[phone] Referring Provider: Carolina Gaming [address], [place], [place], [address]. tel:[phone] OFFICE/OUTPA TIENT VISIT, [facility], [address], [place], [place], [address], [place] tel:[phone] [facility] back pain (chief complaint)anxie ty (chief complaint)hypot hyroidism (chief complaint)DM (chief complaint) Dietary surveillance and counselingObes ityGeneralized anxiety disorderHypoth yroidismMetabo lic Syndrome 4 Anselmo Donald. [address], [place], [place], [address] , [place]. tel:[phone] Referring Provider: Carolina Gaming [address], [place], [place], [address]. tel:[phone] OFFICE/OUTPA TIENT VISIT, EST [facility], [address], [place], [place], [address], [place] tel:[phone] [facility] back pain (chief complaint)lap band (chief complaint)anxie ty (chief complaint) LumbagoGERDGen eralized anxiety disorderObesit y, Morbid 4 Anselmo Forbes [address], [place], [place], [address] , [place]. tel:[phone] Referring Provider: Carolina Gaming [address], [place], [place], [address]. tel:[phone] PREV VISIT, EST, AGE 40-64 [facility], [address], [place], [place], [address], [place] tel:[phone] [facility] Physical (chief complaint) Dietary surveillance and counselingRout ine Medical ExamRoutine Medical Exam 4 Anselmo Forbes [address], [place], [place], [address] , [place]. tel:[phone] Referring Provider: Carolina Gaming [address], [place], [place], [address]. tel:[phone] OFFICE/OUTPA TIENT VISIT, EST [facility], [address], [place], [place], [address], [place] tel:[phone] [facility] Hypothyroidism (chief complaint)chorn ic pain (chief complaint)anxie ty (chief complaint) Dietary surveillance and counselingPain in joint involving lower legGeneralized anxiety disorderHypoth yroidismGERD 4 Anselmo Donald. [address], [place], [place], [address] , [place]. tel:[phone] Referring Provider: Carolina Gaming [address], [place], [place], [address]. tel:[phone] OFFICE/OUTPA TIENT VISIT, [facility], [address], [place], [place], [address], [place] tel:[phone] [facility] chornic pain (chief complaint)anxie ty (chief complaint) Dietary surveillance and counselingLumb agoGeneralized anxiety disorder 4 Anselmo Forbes [address], [address], [place], [place], [address] , [place]. [phone] Referring Provider: [employer] [address], [place], [place], [address]. tel:[phone] OFFICE/OUTPA TIENT VISIT, [facility], [address], [place], [place], [address], [place] tel:[phone] [facility] chronic pain (chief complaint)anxie ty (chief complaint) Dietary surveillance and counselingGene ralized anxiety disorderPain in joint involving lower leg 4 Anselmo Forbes [address], [place], [place], [address] , [place]. tel:[phone] Referring Provider: [employer] [address], [place], [address]. tel:[phone] OFFICE/OUTPA TIENT VISIT, [facility], [address], [place], [place], [address], [place] tel:[phone] [facility] anxiety (chief complaint)chron ic pain (chief complaint)hypot hryoidism (chief complaint) Generalized anxiety disorderCHRONI C PAIN NECHypothyroid ism 4 Anselmo Forbes [address], [place], [place], [address] , [place]. [phone] Referring Provider: Odilon Briones, [address], [place], [place], [address]. tel:[phone] OFFICE/OUTPA TIENT VISIT, [facility], [address], [place], [place], [address], [place] tel:[phone] [facility] sick (chief complaint)chorn ic pain (chief complaint)anxie ty (chief complaint) Viral Infection, UnspecifiedCHR ONIC PAIN NECGeneralized anxiety disorder 4 Anselmo Donald. [address], [place], [place], [address] , [place]. [phone] Referring Provider: Odilon Briones, [address], [place], [place], [address]. tel:[phone] OFFICE/OUTPA TIENT VISIT, [facility], [address], [place], [place], [address], [place] tel:[phone] [facility] chronic pain (chief complaint)anxie ty (chief complaint)GERD (chief complaint) Dietary surveillance and counselingLumb agoGERDHyperte nsion, Unspecified 3 Anselmo Donald. [address], [place], [place], [address] , [place]. [phone] Referring Provider: Odilon Briones, [address], [place], [place], [address]. tel:[phone] OFFICE/OUTPA TIENT VISIT, [facility], [address], [place], [place], [address], [place] [phone] [facility] knee pain (chief complaint)anxie ty (chief complaint)Obeis ty (chief complaint) Dietary surveillance and counselingObes ityLumbagoGene ralized anxiety disorder 3 Anselmo Donald. [address], [place], [place], [address] , [place]. [phone] Referring Provider: Odilon Briones, [address], [place], [place], [address]. tel:[phone] OFFICE/OUTPA TIENT VISIT, [facility], [address], [place], [place], [address], [place] tel:[phone] [facility] chronic pain (chief complaint)anxie ty (chief complaint)knee pain (chief complaint) Dietary surveillance and counselingLumb agoPain in joint involving lower legGeneralized anxiety disorder 3 Anselmo Donald. [address], [place], [place], [address] , [place]. tel:[phone] Referring Provider: Odilon Briones, [address], [place], [place], [address]. tel:[phone] OFFICE/OUTPA TIENT VISIT, [facility], [address], [place], [place], [address], [place] tel:[phone] [facility] chronic pain (chief complaint)anxie ty (chief complaint)GERD (chief complaint) Dietary surveillance and counselingLumb agoHypertensio n, UnspecifiedGER D 3 Anselmo Donald. [address], [place], [place], [address] , [place]. tel:[phone] Referring Provider: Odilon Briones, [address], [place], [place], [address]. tel:[phone] OFFICE/OUTPA TIENT VISIT, [facility], [address], [place], [place], [address], [place] tel:[phone] [facility] anxiety (chief complaint) Generalized anxiety disorder 3 Anselmo Donald. [address], [place], [place], [address] , [place]. tel:[phone] Referring Provider: Odilon Briones [address], [place], [place], [address]. tel:[phone] OFFICE/OUTPA TIENT VISIT, [facility], [address], [place], [address], [place] tel:[phone] [facility] sleep apnea (chief complaint)chron ic pain (chief complaint)obesi ty (chief complaint)anxie ty (chief complaint) Dietary surveillance and counselingSlee p ApneaPain in joint involving lower legObesityGene ralized anxiety disorder 3 Anselmo Donald. [address], [place], [place], [address] , [place]. tel:[phone] Referring Provider: Odilon Briones, [address], [place], [place], [address]. tel:[phone] OFFICE/OUTPA TIENT VISIT, [facility], [address], [place], [place], [address], [place] tel:[phone] [facility] HTN (chief complaint)hypot hryoidism (chief complaint)chron ic pain (chief complaint) Dietary surveillance and counselingPain in joint involving lower legGeneralized anxiety disorderHypert ension, Unspecified 3 Anselmo Donald. [address], [place], [place], [address] , [place]. tel:[phone] Referring Provider: [employer] [address], [place], [place], [address]. tel:[phone] OFFICE/OUTPA TIENT VISIT, [facility], [address], [place], [address], [place] tel:[phone] [facility] back pain (chief complaint)anxie ty (chief complaint) Dietary surveillance and counselingHype rtension, UnspecifiedHyp othyroidismLum bago 3 Anselmo Donald. [address], [place], [place], [address] , [place]. tel:[phone] Referring Provider: [employer] [address], [place], [place], [address]. tel:[phone] PREV VISIT, EST, AGE 40-64 [facility], [address], [place], [place], [address], [place] tel:[phone] [facility] Physical (chief complaint) Dietary surveillance and counselingRout [facility] Medical ExamRoutine Medical Exam 3 Anselmo Donald. [address], [place], [place], [address] , [place]. tel:[phone] Referring Provider: [employer] [address], [place], [place], [address]. tel:[phone] OFFICE/OUTPA TIENT VISIT, [facility], [address], [place], [place], [address], [place] tel:[phone] [facility] chronic pain (chief complaint)anxie ty (chief complaint)Hypot hyroidism (chief complaint)HTN (chief complaint) Dietary surveillance and counselingCHRO BK PAIN NECHypertensio n, UnspecifiedHyp othyroidism 3 Anselmo Forbes [address], [place], [place], [address] , [place]. [phone] Referring Provider: [employer] [address], [place], [place], [address]. tel:[phone] OFFICE/OUTPA TIENT VISIT, [facility], [address], [place], [place], [address], [place] tel:[phone] [facility] chronic pain (chief complaint)anxie ty (chief complaint)GERD (chief complaint) Dietary surveillance and counselingGERD CHRONIC PAIN NECGeneralized anxiety disorder 3 Anselmo Donald. [address], [place], [place], [address] , [place]. [phone] Referring Provider: [employer] [address], [place], [place], [address]. tel:[phone] OFFICE/OUTPA TIENT VISIT, [facility], [address], [place], [place], [address], [place] tel:[phone] [facility] chronic pain (chief complaint)HTN (chief complaint)anxie ty (chief complaint) Dietary surveillance and counselingHype rtension, UnspecifiedCHR ONIC PAIN NECGeneralized anxiety disorder 3 Anselmo Donald. [address], [place], [place], [address] , [place]. tel:[phone] Referring Provider: [employer] [address], [place], [place], [address]. tel:[phone] OFFICE/OUTPA TIENT VISIT, [facility], [address], [place], [place], [address], [place] tel:[phone] [facility] chronic pain (chief complaint)anxie ty (chief complaint)obesi ty (chief complaint) Dietary surveillance and counselingHype rtension, UnspecifiedObe sityCHRONIC PAIN NEC 3 Anselmo Forbes [address], [place], [place], [address] , [place]. tel:[phone] Referring Provider: [employer] [facility] [place], [address]. tel:[phone] OFFICE/OUTPA TIENT VISIT, [facility], [address], [place], [place], [address], [place] tel:[phone] [facility] chronic pain (chief complaint)anxie ty (chief complaint)hypot hyroidism (chief complaint) Dietary surveillance and counselingGene ralized anxiety disorderCHRONI C PAIN NECObesityHypo thyroidism 2 Anselmo Forbes [address], [place], [place], [address] , [place]. [phone] Referring Provider: [employer] [address], [place], [place], [address]. tel:[phone] OFFICE/OUTPA TIENT VISIT, [facility], [address], [place], [place], [address], [place] tel:[phone] [facility] hypothyroidism (chief complaint)chron ic pain (chief complaint)anxie ty (chief complaint)obeis ty (chief complaint) Dietary surveillance and counselingCHRO BK PAIN NECObesityGene ralized anxiety disorder 2 Anselmo Forbes [address], [place], [place], [address] , [place]. tel:[phone] Referring Provider: Odilon Briones, [address], [place], [address]. tel:[phone] OFFICE/OUTPA TIENT VISIT, EST [facility], [address], [address], [place] tel:[phone] [facility] obesity (chief complaint)hypot hyroidism (chief complaint)anxie ty (chief complaint)back pain (chief complaint) Dietary surveillance and counselingLumb agoPain in joint involving lower legObesityGene ralized anxiety disorder 2 Anselmo Donald. [address], [place], [address] , [place]. tel:[phone] Referring Provider: Odilon Briones, [address] [place] [address], [address]. tel:[phone] Family History Family Member Type Diagnosis Age At Onset Brother Problem (finding) Alive and well Father Problem (finding) Coronary artery disease 57 Mother Problem (finding) Alzheimer's Disease Payers Payer name Insurance type Covered constitution party ID Dorothya ashley(s) [employer] Medicare CI [id number] Social History Type Description Quantity Date Captured Comments Alcohol Use Details No Caffeine Use Details Unknown Tobacco Use Status Ex-cigarette smoker 025 Smoking Status Former smoker Sex Female Vital Signs Date / Time: Height Weight BMI Pulse Rate Blood Pressure Temperature Respiratory Rate Body Surface Area Head Circumference BMI percentile Pulse Ox Inhaled Ox 2:13 PM 67.00 in 178.00 lbs 27.8 8 kg/m eter (2) 61 /min 130/76 mm[Hg] 97.5 F 16 /min Chief Complaint And Reason For Visit From encounter dated '09/05/2024 14:13'. pain (chief complaint). Description: Pt has chronic low back and knee pain Pt denies any worsening pain Pt denies any loss of bladder control. Pt takes ultram and norco PRN for pain and doing ok. Pt has neuropathy both leg. Pt takes neurontin and doing ok. Pt denies any saddle area paresthesia. Pt takes flexeril and neurontin as well. anxiety1 (chief complaint). Description: Pt has chronic anxiety and depression . Pt denies any suicidal or homicidal thought. Pt takes cymbalta and xanax PRN and doing ok. migraine1 (chief complaint). Description: Pt has chronic migraine headache Pt takes topamax and amitriptyline and she rarely has migraine. pt needs above medication refilled Plan Of Treatment Date Type Action Status Goal Sigmoidoscopy. Due on due Goal Td vaccine. Due on due Goal Lipid panel. Due on due Goal Depression screening. Due on due Goal Influenza vaccine. Due on due Goal Pap/HPV testing. Due on due Goal Zoster vaccine. Due on due Goal Tdap. Due on due Goal FOBT. Due on due Goal FOBT. Due on due Goal Tdap. Due on due Goal Zoster vaccine. Due on due Goal Pap/HPV testing. Due on due Goal Influenza vaccine. Due on due Goal Sigmoidoscopy. Due on due Goal Td vaccine. Due on due Goal Lipid panel. Due on 025 due Goal Depression screening. Due on due Goal Depression screening. Due on due Goal Lipid panel. Due on due Goal FOBT. Due on due Goal Tdap. Due on due Goal Zoster vaccine. Due on due Goal Pap/HPV testing. Due on due Goal Influenza vaccine. Due on due Goal Sigmoidoscopy. Due on due Goal Td vaccine. Due on due Goal Td vaccine. Due on due Goal Sigmoidoscopy. Due on due Goal Influenza vaccine. Due on due Goal Pap/HPV testing. Due on due Goal Depression screening. Due on due Goal Lipid panel. Due on due Goal FOBT. Due on due Goal Tdap. Due on due Goal Zoster vaccine. Due on due Goal Zoster vaccine. Due on due Goal Tdap. Due on due Goal FOBT. Due on due Goal Td vaccine. Due on due Goal Sigmoidoscopy. Due on due Goal Influenza vaccine. Due on due Goal Pap/HPV testing. Due on due Goal Depression screening. Due on due Goal Lipid panel. Due on due Goal Zoster vaccine. Due on due Goal Tdap. Due on due Goal FOBT. Due on due Goal Td vaccine. Due on due Goal Sigmoidoscopy. Due on due Goal Influenza vaccine. Due on due Goal Pap/HPV testing. Due on due Goal Depression screening. Due on due Goal Lipid panel. Due on due Goal Zoster vaccine. Due on due Goal Tdap. Due on due Goal FOBT. Due on due Goal Td vaccine. Due on due Goal Sigmoidoscopy. Due on due Goal Influenza vaccine. Due on due Goal Pap/HPV testing. Due on due Goal Depression screening. Due on due Goal Lipid panel. Due on due Goal Lipid panel. Due on due Goal Depression screening. Due on due Goal Pap/HPV testing. Due on due Goal Influenza vaccine. Due on due Goal Zoster vaccine. Due on due Goal Tdap. Due on due Goal FOBT. Due on due Goal Td vaccine. Due on due Goal Sigmoidoscopy. Due on due Goal Sigmoidoscopy. Due on due Goal Td vaccine. Due on due Goal Lipid panel. Due on due Goal Depression screening. Due on due Goal Pap/HPV testing. Due on due Goal Influenza vaccine. Due on due Goal Zoster vaccine. Due on due Goal Tdap. Due on due Goal FOBT. Due on due Goal FOBT. Due on due Goal Tdap. Due on due Goal Zoster vaccine. Due on due Goal Influenza vaccine. Due on due Goal Pap/HPV testing. Due on due Goal Sigmoidoscopy. Due on due Goal Td vaccine. Due on due Goal Lipid panel. Due on due Goal Depression screening. Due on due Goal FOBT. Due on due Goal Tdap. Due on due Goal Zoster vaccine. Due on due Goal Influenza vaccine. Due on due Goal Pap/HPV testing. Due on due Goal Sigmoidoscopy. Due on due Goal Td vaccine. Due on due Goal Lipid panel. Due on due Goal Depression screening. Due on due Goal FOBT. Due on due Goal Tdap. Due on due Goal Zoster vaccine. Due on due Goal Influenza vaccine. Due on due Goal Pap/HPV testing. Due on due Goal Sigmoidoscopy. Due on due Goal Td vaccine. Due on due Goal Lipid panel. Due on due Goal Depression screening. Due on due Goal Depression screening. Due on due Goal Lipid panel. Due on due Goal FOBT. Due on due Goal Tdap. Due on due Goal Zoster vaccine. Due on due Goal Influenza vaccine. Due on due Goal Pap/HPV testing. Due on due Goal Sigmoidoscopy. Due on due Goal Td vaccine. Due on due Goal Zoster vaccine. Due on due Goal Tdap. Due on due Goal FOBT. Due on due Goal Lipid panel. Due on due Goal Depression screening. Due on due Goal Influenza vaccine. Due on due Goal Pap/HPV testing. Due on due Goal Sigmoidoscopy. Due on due Goal Td vaccine. Due on due Goal Depression screening. Due on due Goal Td vaccine. Due on due Goal Sigmoidoscopy. Due on due Goal Pap/HPV testing. Due on due Goal Influenza vaccine. Due on due Goal Zoster vaccine. Due on due Goal Tdap. Due on due Goal FOBT. Due on due Goal Lipid panel. Due on due Goal Sigmoidoscopy. Due on due Goal Pap/HPV testing. Due on due Goal Influenza vaccine. Due on due Goal Zoster vaccine. Due on due Goal Tdap. Due on due Goal FOBT. Due on due Goal Lipid panel. Due on due Goal Depression screening. Due on due Goal Td vaccine. Due on due Goal Influenza vaccine. Due on due Goal Zoster vaccine. Due on due Goal Tdap. Due on due Goal FOBT. Due on due Goal Lipid panel. Due on due Goal Td vaccine. Due on due Goal Depression screening. Due on due Goal Sigmoidoscopy. Due on due Goal Pap/HPV testing. Due on due Goal Pap/HPV testing. Due on due Goal Sigmoidoscopy. Due on due Goal Lipid panel. Due on due Goal FOBT. Due on due Goal Tdap. Due on due Goal Zoster vaccine. Due on due Goal Influenza vaccine. Due on due Goal Td vaccine. Due on due Goal Depression screening. Due on due Goal Depression screening. Due on due Goal Td vaccine. Due on due Goal Influenza vaccine. Due on due Goal Zoster vaccine. Due on due Goal Pap/HPV testing. Due on due Goal Sigmoidoscopy. Due on due Goal Lipid panel. Due on due Goal FOBT. Due on due Goal Tdap. Due on due Goal Tdap. Due on due Goal FOBT. Due on due Goal Lipid panel. Due on due Goal Depression screening. Due on due Goal Td vaccine. Due on due Goal Influenza vaccine. Due on due Goal Pap/HPV testing. Due on due Goal Sigmoidoscopy. Due on due Goal Influenza vaccine. Due on due Goal Tdap. Due on due Goal FOBT. Due on due Goal Lipid panel. Due on due Goal Depression screening. Due on due Goal Td vaccine. Due on due Goal Sigmoidoscopy. Due on due Goal Pap/HPV testing. Due on due Goal Lipid panel. Due on due Goal Pap/HPV testing. Due on due Goal Sigmoidoscopy. Due on due Goal Td vaccine. Due on due Goal Depression screening. Due on due Goal Influenza vaccine. Due on due Goal Tdap. Due on due Goal FOBT. Due on due Goal FOBT. Due on due Goal Tdap. Due on due Goal Influenza vaccine. Due on due Goal Depression screening. Due on due Goal Td vaccine. Due on due Goal Lipid panel. Due on due Goal Pap/HPV testing. Due on due Goal Sigmoidoscopy. Due on due Goal Sigmoidoscopy. Due on due Goal Pap/HPV testing. Due on due Goal Lipid panel. Due on due Goal FOBT. Due on due Goal Tdap. Due on due Goal Influenza vaccine. Due on due Goal Depression screening. Due on due Goal Td vaccine. Due on due Goal Td vaccine. Due on due Goal Depression screening. Due on due Goal Sigmoidoscopy. Due on due Goal Pap/HPV testing. Due on due Goal Lipid panel. Due on due Goal FOBT. Due on due Goal Tdap. Due on due Goal Influenza vaccine. Due on due Goal Pap/HPV testing. Due on due Goal Sigmoidoscopy. Due on due Goal Depression screening. Due on due Goal Td vaccine. Due on due Goal Lipid panel. Due on due Goal FOBT. Due on due Goal Tdap. Due on due Goal Influenza vaccine. Due on due Goal Tdap. Due on due Goal FOBT. Due on due Goal Lipid panel. Due on due Goal Td vaccine. Due on due Goal Depression screening. Due on due Goal Influenza vaccine. Due on due Goal Pap/HPV testing. Due on due Goal Sigmoidoscopy. Due on due Goal Influenza vaccine. Due on due Goal Tdap. Due on due Goal FOBT. Due on due Goal Lipid panel. Due on due Goal Td vaccine. Due on due Goal Depression screening. Due on due Goal Sigmoidoscopy. Due on due Goal Pap/HPV testing. Due on due Goal Pap/HPV testing. Due on due Goal Sigmoidoscopy. Due on due Goal Influenza vaccine. Due on due Goal Tdap. Due on due Goal FOBT. Due on due Goal Lipid panel. Due on due Goal Td vaccine. Due on due Goal Depression screening. Due on due Goal Depression screening. Due on due Goal Td vaccine. Due on due Goal Lipid panel. Due on due Goal Pap/HPV testing. Due on due Goal Sigmoidoscopy. Due on due Goal Influenza vaccine. Due on due Goal Tdap. Due on due Goal FOBT. Due on due Goal FOBT. Due on due Goal Tdap. Due on due Goal Influenza vaccine. Due on due Goal Depression screening. Due on due Goal Td vaccine. Due on due Goal Lipid panel. Due on due Goal Pap/HPV testing. Due on due Goal Sigmoidoscopy. Due on due Goal Sigmoidoscopy. Due on due Goal Pap/HPV testing. Due on due Goal Lipid panel. Due on due Goal FOBT. Due on due Goal Tdap. Due on due Goal Influenza vaccine. Due on due Goal Depression screening. Due on due Goal Td vaccine. Due on due Goal Td vaccine. Due on due Goal Depression screening. Due on due Goal Sigmoidoscopy. Due on due Goal Pap/HPV testing. Due on due Goal Lipid panel. Due on due Goal FOBT. Due on due Goal Tdap. Due on due Goal Influenza vaccine. Due on due Goal Influenza vaccine. Due on due Goal Tdap. Due on due Goal FOBT. Due on due Goal Lipid panel. Due on due Goal Td vaccine. Due on due Goal Depression screening. Due on due Goal Sigmoidoscopy. Due on due Goal Pap/HPV testing. Due on due Goal Pap/HPV testing. Due on due Goal Sigmoidoscopy. Due on due Goal Influenza vaccine. Due on due Goal Tdap. Due on due Goal FOBT. Due on due Goal Lipid panel. Due on due Goal Td vaccine. Due on due Goal Depression screening. Due on due Goal FOBT. Due on due Goal Tdap. Due on due Goal Influenza vaccine. Due on Ma due Goal Sigmoidoscopy. Due on due Goal Pap/HPV testing. Due on due Goal Lipid panel. Due on due Goal Td vaccine. Due on due Goal Depression screening. Due on due Goal FOBT. Due on due Goal Tdap. Due on due Goal Influenza vaccine. Due on due Goal Sigmoidoscopy. Due on due Goal Pap/HPV testing. Due on due Goal Lipid panel. Due on due Goal Depression screening. Due on due Goal Td vaccine. Due on due Goal Td vaccine. Due on due Goal Depression screening. Due on due Goal Lipid panel. Due on due Goal FOBT. Due on due Goal Tdap. Due on due Goal Influenza vaccine. Due on due Goal Sigmoidoscopy. Due on due Goal Pap/HPV testing. Due on due Goal Pap/HPV testing. Due on due Goal Sigmoidoscopy. Due on due Goal Td vaccine. Due on due Goal Depression screening. Due on due Goal Lipid panel. Due on due Goal FOBT. Due on due Goal Tdap. Due on due Goal Influenza vaccine. Due on due Goal Influenza vaccine. Due on due Goal Tdap. Due on due Goal FOBT. Due on due Goal Lipid panel. Due on due Goal Pap/HPV testing. Due on due Goal Sigmoidoscopy. Due on due Goal Td vaccine. Due on due Goal Depression screening. Due on due Goal Sigmoidoscopy. Due on due Goal Pap/HPV testing. Due on due Goal Lipid panel. Due on due Goal FOBT. Due on due Goal Tdap. Due on due Goal Influenza vaccine. Due on due Goal Td vaccine. Due on due Goal Depression screening. Due on due Goal Depression screening. Due on due Goal Td vaccine. Due on due Goal Sigmoidoscopy. Due on due Goal Pap/HPV testing. Due on due Goal Lipid panel. Due on due Goal FOBT. Due on due Goal Tdap. Due on due Goal Influenza vaccine. Due on due Goal Influenza vaccine. Due on due Goal Tdap. Due on due Goal FOBT. Due on due Goal Lipid panel. Due on due Goal Depression screening. Due on due Goal Td vaccine. Due on due Goal Sigmoidoscopy. Due on due Goal Pap/HPV testing. Due on due Goal Pap/HPV testing. Due on due Goal Sigmoidoscopy. Due on due Goal Influenza vaccine. Due on due Goal Tdap. Due on due Goal FOBT. Due on due Goal Lipid panel. Due on due Goal Depression screening. Due on due Goal Td vaccine. Due on due Goal Td vaccine. Due on due Goal Depression screening. Due on due Goal Lipid panel. Due on due Goal Pap/HPV testing. Due on due Goal Sigmoidoscopy. Due on due Goal Influenza vaccine. Due on due Goal Tdap. Due on due Goal FOBT. Due on due Goal FOBT. Due on due Goal Tdap. Due on due Goal Influenza vaccine. Due on due Goal Td vaccine. Due on due Goal Depression screening. Due on due Goal Lipid panel. Due on due Goal Pap/HPV testing. Due on due Goal Sigmoidoscopy. Due on due Goal FOBT. Due on due Goal Tdap. Due on due Goal Influenza vaccine. Due on due Goal Td vaccine. Due on due Goal Depression screening. Due on due Goal Sigmoidoscopy. Due on due Goal Pap/HPV testing. Due on due Goal Lipid panel. Due on due Goal Depression screening. Due on due Goal Td vaccine. Due on due Goal Sigmoidoscopy. Due on due Goal Pap/HPV testing. Due on due Goal Lipid panel. Due on due Goal FOBT. Due on due Goal Tdap. Due on due Goal Influenza vaccine. Due on due Goal Depression screening. Due on due Goal Td vaccine. Due on due Goal Sigmoidoscopy. Due on due Goal Pap/HPV testing. Due on due Goal Lipid panel. Due on due Goal FOBT. Due on due Goal Tdap. Due on due Goal Influenza vaccine. Due on Ut due Goal Influenza vaccine. Due on due Goal Tdap. Due on due Goal FOBT. Due on due Goal Lipid panel. Due on due Goal Pap/HPV testing. Due on due Goal Sigmoidoscopy. Due on due Goal Td vaccine. Due on due Goal Depression screening. Due on due Goal Influenza vaccine. Due on Ut due Goal Tdap. Due on due Goal FOBT. Due on due Goal Lipid panel. Due on due Goal Pap/HPV testing. Due on due Goal Sigmoidoscopy. Due on due Goal Td vaccine. Due on due Goal Depression screening. Due on due Goal FOBT. Due on due Goal Tdap. Due on due Goal Influenza vaccine. Due on due Goal Depression screening. Due on due Goal Td vaccine. Due on due Goal Sigmoidoscopy. Due on due Goal Pap/HPV testing. Due on due Goal Lipid panel. Due on due Goal FOBT. Due on due Goal Tdap. Due on due Goal Influenza vaccine. Due on due Goal Depression screening. Due on due Goal Td vaccine. Due on due Goal Sigmoidoscopy. Due on due Goal Pap/HPV testing. Due on due Goal Lipid panel. Due on due Goal Lipid panel. Due on due Goal Pap/HPV testing. Due on due Goal Sigmoidoscopy. Due on due Goal Td vaccine. Due on due Goal Depression screening. Due on due Goal Influenza vaccine. Due on due Goal Tdap. Due on due Goal FOBT. Due on due Goal Depression screening. Due on due Goal Influenza vaccine. Due on due Goal Tdap. Due on due Goal FOBT. Due on due Goal Lipid panel. Due on due Goal Pap/HPV testing. Due on due Goal Sigmoidoscopy. Due on due Goal Td vaccine. Due on due Goal Depression screening. Due on due Goal Influenza vaccine. Due on due Goal Tdap. Due on due Goal FOBT. Due on due Goal Lipid panel. Due on due Goal Pap/HPV testing. Due on due Goal Sigmoidoscopy. Due on due Goal Td vaccine. Due on due Goal Depression screening. Due on due Goal Influenza vaccine. Due on due Goal Tdap. Due on due Goal FOBT. Due on due Goal Lipid panel. Due on due Goal Pap/HPV testing. Due on due Goal Sigmoidoscopy. Due on due Goal Td vaccine. Due on due Goal Depression screening. Due on due Goal Influenza vaccine. Due on due Goal Tdap. Due on due Goal FOBT. Due on due Goal Lipid panel. Due on due Goal Pap/HPV testing. Due on due Goal Sigmoidoscopy. Due on due Goal Td vaccine. Due on due Goal Depression screening. Due on due Goal Influenza vaccine. Due on due Goal Tdap. Due on due Goal FOBT. Due on due Goal Lipid panel. Due on due Goal Pap/HPV testing. Due on due Goal Sigmoidoscopy. Due on due Goal Td vaccine. Due on due Goal Depression screening. Due on due Goal Influenza vaccine. Due on due Goal Tdap. Due on due Goal FOBT. Due on due Goal Lipid panel. Due on due Goal Pap/HPV testing. Due on due Goal Sigmoidoscopy. Due on due Goal Td vaccine. Due on due Goal Td vaccine. Due on due Goal Sigmoidoscopy. Due on due Goal Pap/HPV testing. Due on due Goal Lipid panel. Due on due Goal FOBT. Due on due Goal Tdap. Due on due Goal Influenza vaccine. Due on due Goal Depression screening. Due on due Goal Depression screening. Due on due Goal Influenza vaccine. Due on due Goal Tdap. Due on due Goal FOBT. Due on due Goal Lipid panel. Due on due Goal Pap/HPV testing. Due on due Goal Sigmoidoscopy. Due on due Goal Td vaccine. Due on due Goal Depression screening. Due on due Goal Influenza vaccine. Due on due Goal Tdap. Due on due Goal FOBT. Due on due Goal Lipid panel. Due on due Goal Pap/HPV testing. Due on due Goal Sigmoidoscopy. Due on due Goal Td vaccine. Due on due Goal Tobacco cessation counseling completed Goal Depression screening. Due on due Goal Influenza vaccine. Due on due Goal Tdap. Due on due Goal FOBT. Due on due Goal Lipid panel. Due on due Goal Pap/HPV testing. Due on due Goal Sigmoidoscopy. Due on due Goal Td vaccine. Due on due Goal Tobacco cessation counseling completed Goal Depression screening. Due on due Goal Td vaccine. Due on due Goal Sigmoidoscopy. Due on due Goal Pap/HPV testing. Due on due Goal Lipid panel. Due on due Goal FOBT. Due on due Goal Tdap. Due on due Goal Influenza vaccine. Due on due Goal Tobacco cessation counseling completed Goal Special diet education compl eted Goal Depression screening. Due on due Goal Td vaccine. Due on due Goal Sigmoidoscopy. Due on due Goal Pap/HPV testing. Due on due Goal Lipid panel. Due on due Goal FOBT. Due on due Goal Tdap. Due on due Goal Influenza vaccine. Due on De due Goal Special diet education compl eted Goal Tobacco cessation counseling completed Goal Depression screening. Due on due Goal Td vaccine. Due on due Goal Sigmoidoscopy. Due on due Goal Pap/HPV testing. Due on due Goal Lipid panel. Due on due Goal FOBT. Due on due Goal Tdap. Due on due Goal Influenza vaccine. Due on Oc due Goal Tobacco cessation counseling completed Goal Special diet education compl eted Goal Influenza vaccine. Due on due Goal Tdap. Due on due Goal FOBT. Due on due Goal Lipid panel. Due on due Goal Pap/HPV testing. Due on due Goal Sigmoidoscopy. Due on due Goal Depression screening. Due on due Goal Td vaccine. Due on 19 due Goal Tobacco cessation counseling completed Goal Special diet education compl eted Goal Influenza vaccine. Due on due Goal Tdap. Due on due Goal FOBT. Due on due Goal Lipid panel. Due on due Goal Pap/HPV testing. Due on due Goal Sigmoidoscopy. Due on due Goal Depression screening. Due on due Goal Td vaccine. Due on due Goal Tobacco cessation counseling completed Goal Special diet education compl eted Goal Td vaccine. Due on due Goal Depression screening. Due on due Goal Sigmoidoscopy. Due on due Goal Pap/HPV testing. Due on due Goal Lipid panel. Due on due Goal FOBT. Due on due Goal Tdap. Due on due Goal Influenza vaccine. Due on due Goal Prescribed dietary intake co mpleted Goal Pap/HPV testing. Due on due Goal Sigmoidoscopy. Due on due Goal Depression screening. Due on due Goal Td vaccine. Due on due Goal Influenza vaccine. Due on due Goal Tdap. Due on due Goal FOBT. Due on due Goal Lipid panel. Due on due Goal Tobacco cessation counseling completed Goal Special diet education compl eted Goal Influenza vaccine. Due on due Goal Tdap. Due on due Goal FOBT. Due on due Goal Pap/HPV testing. Due on due Goal Sigmoidoscopy. Due on due Goal Depression screening. Due on due Goal Td vaccine. Due on due Goal Lipid panel. Due on due Goal Tobacco cessation counseling completed Goal Special diet education compl eted Goal Influenza vaccine. Due on due Goal Tdap. Due on due Goal FOBT. Due on due Goal Pap/HPV testing. Due on due Goal Sigmoidoscopy. Due on due Goal Depression screening. Due on due Goal Td vaccine. Due on due Goal Lipid panel. Due on due Goal Tobacco cessation counseling completed Goal Special diet education compl eted Goal Influenza vaccine. Due on due Goal Tdap. Due on due Goal FOBT. Due on due Goal Pap/HPV testing. Due on due Goal Sigmoidoscopy. Due on due Goal Depression screening. Due on due Goal Td vaccine. Due on due Goal Lipid panel. Due on due Goal Special diet education compl eted Goal Tobacco cessation counseling completed Goal Lipid panel. Due on due Goal Td vaccine. Due on due Goal Depression screening. Due on due Goal Sigmoidoscopy. Due on due Goal Pap/HPV testing. Due on due Goal FOBT. Due on due Goal Tdap. Due on due Goal Influenza vaccine. Due on due Goal Tobacco cessation counseling completed Goal Special diet education compl eted Goal Influenza vaccine. Due on due Goal Tdap. Due on due Goal FOBT. Due on due Goal Pap/HPV testing. Due on due Goal Sigmoidoscopy. Due on due Goal Depression screening. Due on due Goal Td vaccine. Due on due Goal Lipid panel. Due on due Goal Tobacco cessation counseling completed Goal Special diet education compl eted Goal Influenza vaccine. Due on due Goal Tdap. Due on due Goal FOBT. Due on due Goal Pap/HPV testing. Due on due Goal Sigmoidoscopy. Due on due Goal Depression screening. Due on due Goal Td vaccine. Due on due Goal Lipid panel. Due on due Goal Tobacco cessation counseling completed Goal Special diet education compl eted Goal Influenza vaccine. Due on due Goal Tdap. Due on due Goal FOBT. Due on due Goal Pap/HPV testing. Due on due Goal Sigmoidoscopy. Due on due Goal Depression screening. Due on due Goal Td vaccine. Due on due Goal Lipid panel. Due on due Goal Tobacco cessation counseling completed Goal Special diet education compl eted Goal Influenza vaccine. Due on due Goal Tdap. Due on due Goal FOBT. Due on due Goal Pap/HPV testing. Due on due Goal Sigmoidoscopy. Due on due Goal Depression screening. Due on due Goal Td vaccine. Due on 18 due Goal Lipid panel. Due on due Goal Special diet education compl eted Goal Special diet education compl eted Goal Lipid panel. Due on due Goal Td vaccine. Due on due Goal Depression screening. Due on due Goal Sigmoidoscopy. Due on due Goal Pap/HPV testing. Due on due Goal FOBT. Due on due Goal Tdap. Due on due Goal Influenza vaccine. Due on due Goal Prescribed dietary intake co mpleted Goal Lipid panel. Due on due Goal Td vaccine. Due on due Goal Depression screening. Due on due Goal Sigmoidoscopy. Due on due Goal Pap/HPV testing. Due on due Goal FOBT. Due on due Goal Tdap. Due on due Goal Influenza vaccine. Due on due Goal Prescribed dietary intake co mpleted Goal Influenza vaccine. Due on due Goal Tdap. Due on due Goal FOBT. Due on due Goal Pap/HPV testing. Due on due Goal Sigmoidoscopy. Due on due Goal Depression screening. Due on due Goal Td vaccine. Due on 18 due Goal Lipid panel. Due on 018 due Goal Special diet education compl eted Goal Influenza vaccine. Due on due Goal Tdap. Due on due Goal FOBT. Due on due Goal Pap/HPV testing. Due on due Goal Sigmoidoscopy. Due on due Goal Depression screening. Due on due Goal Td vaccine. Due on 18 due Goal Lipid panel. Due on 018 due Goal Prescribed dietary intake co mpleted Goal Influenza vaccine. Due on due Goal Tdap. Due on due Goal FOBT. Due on due Goal Pap/HPV testing. Due on due Goal Sigmoidoscopy. Due on due Goal Depression screening. Due on due Goal Td vaccine. Due on 18 due Goal Lipid panel. Due on 018 due Goal Special diet education compl eted Goal Influenza vaccine. Due on due Goal Tdap. Due on due Goal FOBT. Due on due Goal Pap/HPV testing. Due on due Goal Sigmoidoscopy. Due on due Goal Depression screening. Due on due Goal Td vaccine. Due on due Goal Td vaccine. Due on due Goal FOBT. Due on due Goal Tdap. Due on due Goal Depression screening. Due on due Goal Influenza vaccine. Due on due Goal Sigmoidoscopy. Due on due Goal Pap/HPV testing. Due on due Goal Influenza vaccine. Due on due Goal Tdap. Due on due Goal FOBT. Due on due Goal Depression screening. Due on due Goal Sigmoidoscopy. Due on due Goal Td vaccine. Due on 18 due Goal Pap/HPV testing. Due on due Goal FOBT. Due on due Goal Pap/HPV testing. Due on due Goal Influenza vaccine. Due on due Goal Sigmoidoscopy. Due on due Goal Td vaccine. Due on due Goal Tdap. Due on due Goal Depression screening. Due on due Goal Td vaccine. Due on due Goal FOBT. Due on due Goal Depression screening. Due on due Goal Influenza vaccine. Due on due Goal Pap/HPV testing. Due on due Goal Sigmoidoscopy. Due on due Goal Tdap. Due on due Goal Td vaccine. Due on due Goal FOBT. Due on due Goal Sigmoidoscopy. Due on due Goal Pap/HPV testing. Due on due Goal Depression screening. Due on due Goal Influenza vaccine. Due on due Goal Tdap. Due on due Goal Influenza vaccine. Due on due Goal Tdap. Due on due Goal Td vaccine. Due on due Goal FOBT. Due on due Goal Sigmoidoscopy. Due on due Goal Pap/HPV testing. Due on due Goal Depression screening. Due on due Goal Influenza vaccine. Due on due Goal FOBT. Due on due Goal Tdap. Due on due Goal Td vaccine. Due on 17 due Goal Depression screening. Due on due Goal Pap/HPV testing. Due on due Goal Sigmoidoscopy. Due on due Goal Sigmoidoscopy. Due on due Goal Pap/HPV testing. Due on due Goal Tdap. Due on due Goal Td vaccine. Due on 17 due Goal FOBT. Due on due Goal Influenza vaccine. Due on due Goal Depression screening. Due on due Goal Depression screening. Due on due Goal Tdap. Due on due Goal Sigmoidoscopy. Due on due Goal Pap/HPV testing. Due on due Goal FOBT. Due on due Goal Influenza vaccine. Due on due Goal Td vaccine. Due on 17 due Goal Td vaccine. Due on 17 due Goal Pap/HPV testing. Due on due Goal FOBT. Due on due Goal Sigmoidoscopy. Due on due Goal Influenza vaccine. Due on due Goal Depression screening. Due on due Goal Tdap. Due on due Goal Tdap. Due on due Goal FOBT. Due on due Goal Depression screening. Due on due Goal Td vaccine. Due on due Goal Sigmoidoscopy. Due on due Goal Pap/HPV testing. Due on due Goal Influenza vaccine. Due on Ap due Goal Sigmoidoscopy. Due on due Goal Influenza vaccine. Due on Ma due Goal Pap/HPV testing. Due on due Goal Tdap. Due on due Goal Depression screening. Due on due Goal FOBT. Due on due Goal Td vaccine. Due on due Goal FOBT. Due on due Goal Depression screening. Due on due Goal Sigmoidoscopy. Due on due Goal Pap/HPV testing. Due on due Goal Tdap. Due on due Goal Influenza vaccine. Due on due Goal Td vaccine. Due on due Goal Depression screening. Due on due Goal Pap/HPV testing. Due on due Goal Influenza vaccine. Due on due Goal Td vaccine. Due on due Goal Sigmoidoscopy. Due on due Goal FOBT. Due on due Goal Tdap. Due on due Goal Tdap. Due on due Goal Pap/HPV testing. Due on due Goal Sigmoidoscopy. Due on due Goal Td vaccine. Due on 16 due Goal Depression screening. Due on due Goal Influenza vaccine. Due on due Goal FOBT. Due on due Goal Pap/HPV testing. Due on due Goal FOBT. Due on due Goal Td vaccine. Due on 16 due Goal Depression screening. Due on due Goal Tdap. Due on due Goal Influenza vaccine. Due on due Goal Sigmoidoscopy. Due on due Goal FOBT. Due on due Goal Tdap. Due on due Goal Sigmoidoscopy. Due on due Goal Influenza vaccine. Due on due Goal Td vaccine. Due on 16 due Goal Pap/HPV testing. Due on due Goal Depression screening. Due on due Goal Sigmoidoscopy. Due on due Goal Pap/HPV testing. Due on due Goal Depression screening. Due on due Goal FOBT. Due on due Goal Td vaccine. Due on 16 due Goal Tdap. Due on due Goal Influenza vaccine. Due on due Goal Pap/HPV testing. Due on due Goal Influenza vaccine. Due on due Goal Sigmoidoscopy. Due on due Goal Td vaccine. Due on 16 due Goal Tdap. Due on due Goal Depression screening. Due on due Goal FOBT. Due on due Goal Depression screening. Due on due Goal FOBT. Due on due Goal Td vaccine. Due on 16 due Goal Sigmoidoscopy. Due on due Goal Tdap. Due on due Goal Pap/HPV testing. Due on due Goal Influenza vaccine. Due on due Goal Tdap. Due on due Goal Influenza vaccine. Due on due Goal Sigmoidoscopy. Due on due Goal Td vaccine. Due on 16 due Goal Depression screening. Due on due Goal Pap/HPV testing. Due on due Goal FOBT. Due on due Goal Pap/HPV testing. Due on due Goal Sigmoidoscopy. Due on due Goal Depression screening. Due on due Goal Td vaccine. Due on 16 due Goal FOBT. Due on due Goal Influenza vaccine. Due on due Goal Tdap. Due on due Goal Td vaccine. Due on 16 due Goal Tdap. Due on due Goal Sigmoidoscopy. Due on due Goal Influenza vaccine. Due on due Goal Pap/HPV testing. Due on due Goal FOBT. Due on due Goal Depression screening. Due on due Goal Depression screening. Due on due Goal Td vaccine. Due on 16 due Goal Sigmoidoscopy. Due on due Goal Influenza vaccine. Due on due Goal Pap/HPV testing. Due on due Goal FOBT. Due on due Goal Tdap. Due on due Goal Tdap. Due on due Goal Td vaccine. Due on 16 due Goal Influenza vaccine. Due on due Goal Sigmoidoscopy. Due on due Goal Pap/HPV testing. Due on due Goal FOBT. Due on due Goal Depression screening. Due on due Goal Influenza vaccine. Due on due Goal Td vaccine. Due on 16 due Goal FOBT. Due on due Goal Tdap. Due on due Goal Pap/HPV testing. Due on due Goal Sigmoidoscopy. Due on due Goal Depression screening. Due on due Goal Pap/HPV testing. Due on due Goal Sigmoidoscopy. Due on due Goal Tdap. Due on due Goal Influenza vaccine. Due on due Goal FOBT. Due on due Goal Td vaccine. Due on 16 due Goal Depression screening. Due on due Goal Pap/HPV testing. Due on due Goal Sigmoidoscopy. Due on due Goal Influenza vaccine. Due on due Goal FOBT. Due on due Goal Tdap. Due on due Goal Depression screening. Due on due Goal Td vaccine. Due on due Goal Td vaccine. Due on due Goal FOBT. Due on due Goal Influenza vaccine. Due on due Goal Depression screening. Due on due Goal Sigmoidoscopy. Due on due Goal Pap/HPV testing. Due on due Goal Tdap. Due on due Goal Depression screening. Due on due Goal Influenza vaccine. Due on due Goal Tdap. Due on due Goal Pap/HPV testing. Due on due Goal Sigmoidoscopy. Due on due Goal Td vaccine. Due on due Goal FOBT. Due on due Goal Pap/HPV testing. Due on due Goal Influenza vaccine. Due on due Goal Td vaccine. Due on 15 due Goal FOBT. Due on due Goal Sigmoidoscopy. Due on due Goal Tdap. Due on due Goal Depression screening. Due on due Goal Td vaccine. Due on 15 due Goal FOBT. Due on due Goal Sigmoidoscopy. Due on due Goal Depression screening. Due on due Goal Pap/HPV testing. Due on due Goal Tdap. Due on due Goal Influenza vaccine. Due on due Goal Tdap. Due on due Goal Depression screening. Due on due Goal Td vaccine. Due on 15 due Goal Pap/HPV testing. Due on due Goal Sigmoidoscopy. Due on due Goal FOBT. Due on due Goal Influenza vaccine. Due on due Goal Influenza vaccine. Due on due Goal Sigmoidoscopy. Due on due Goal Pap/HPV testing. Due on due Goal FOBT. Due on due Goal Td vaccine. Due on 15 due Goal Colonoscopy. Due on 015 due Goal Depression screening. Due on due Goal Tdap. Due on due Goal Colonoscopy. Due on 015 due Goal Depression screening. Due on due Goal FOBT. Due on due Goal Influenza vaccine. Due on due Goal Pap/HPV testing. Due on due Goal Sigmoidoscopy. Due on due Goal Td vaccine. Due on 15 due Goal Tdap. Due on due Goal Special diet education compl eted Goal Colonoscopy. Due on 013 due Goal Mammogram. Due on 3 due Goal Tobacco cessation counseling completed Goal Tobacco cessation counseling completed Goal Tobacco cessation counseling completed Goal Tobacco cessation counseling completed Goal Tobacco cessation counseling completed Goal Tobacco cessation counseling completed Goal Tobacco cessation counseling completed Goal Tobacco cessation counseling completed Goal Tobacco cessation counseling completed Goal Tobacco cessation counseling completed Goal Tobacco cessation counseling completed Goal Tobacco cessation counseling completed Goal Tobacco cessation counseling completed Goal Tobacco cessation counseling completed Goal Tobacco cessation counseling completed Goal Tobacco cessation counseling completed Goal Tobacco cessation counseling completed Goal Tobacco cessation counseling completed Goal Tobacco cessation counseling completed Goal Tobacco cessation counseling completed Goal Tobacco cessation counseling completed Goal Tobacco cessation counseling completed Goal Tobacco cessation counseling completed Goal Tobacco cessation counseling completed Goal Tobacco cessation counseling completed Goal Tobacco cessation counseling completed Goal Tobacco cessation counseling completed Goal Tobacco cessation counseling completed Goal Tobacco cessation counseling completed Goal Tobacco cessation counseling completed Referral Ordered: Podiatry (related to Pain in left foot) ordered Referral Ordered: Referrals: Podiatry. Evaluate and treat ordered Referral Ordered: NUC MED HIDA (HEPATOBILIARY) SCAN ordered Referral Ordered: Neymar Davidson -Allopathic & Osteopathic Physicians : Internal Medicine : Gastroenterology (related to Upper abdominal pain) ordered Referral Referred To: Neymar Davidson [address], [place], [phone] Ordered: Referrals: Allopathic & Osteopathic Physicians : Internal Medicine : Gastroenterology. Neymar Davidson. Evaluate and treat ordered Referral Ordered: US EXAM, ABDOM, COMPLETE ordered Referral Ordered: CATHERINE MARTINEZ -[facility]opathic [facility] Osteopathic Physicians : Orthopaedic Surgery (related to Chronic pain syndrome) ordered Referral Ordered: US, PELVIC (NONOBSTETRIC); ordered Referral Referred To: CATHERINE MARTINEZ [address], [place], [phone] Ordered: Referrals: Allopathic & Osteopathic Physicians : Orthopaedic Surgery. CATHERINE MARTINEZ. Evaluate and treat ordered Referral Ordered: HEARING TEST PURE TONE AUDIOMETRY, AIR ordered Referral Ordered: Physical Therapy (related to Cervicalgia) ordered Referral Referred To: Physical Therapy Ordered: Referrals: Physical Therapy. Evaluate and treat ordered Referral Ordered: CT THORAX W/O DYE ordered Referral Ordered: Neurology (related to Migraine) ordered Referral Ordered: Referrals: Neurology. Evaluate and treat ordered Referral Ordered: SLEEP STUDY, ATTENDED ordered Referral Ordered: Bryan Casanova -[facility]opathic [facility]opathic Physicians : Orthopaedic Surgery (related to Chronic pain syndrome) ordered Referral Referred To: Bryan Casanova [address] [place], [place] [id number] Ordered: Referrals: Allopathic & Osteopathic Physicians : Orthopaedic Surgery. Bryan Casanova. Evaluate and treat ordered Referral Ordered: KEVIN CAPUTO -Podiatric Medicine & Surgery Service Providers : Nursing Clerk (related to Corns and callosities) ordered Referral Referred To: KEVIN CAPUTO [address] [facility],[address] [place], [place], [id number] Ordered: Referrals: Podiatric Medicine & Surgery Service Providers : Nursing Clerk. KEVIN CAPUTO. Evaluate and treat ordered Referral Ordered: MAMMOGRAM, ONE BREAST Left ordered Referral Ordered: CT THORAX W/O & W/DYE ordered Referral Ordered: DOPPLER ECHO EXAM, HEART ordered Referral Ordered: MRI BRAIN W/O & W/DYE ordered Referral Ordered: MAMMOGRAM, ONE BREAST L ordered Referral Ordered: UPPER GI W/ SMALL BOWEL SERIES ordered Referral Ordered: DXA BONE DENSITY, AXIAL ordered Referral Ordered: Mario Delgado (related to Bilateral primary osteoarthritis of knee) ordered Referral Referred To: Mario Delgado [address] [place] [address], [phone] Ordered: Referrals: Mario Delgado. Evaluate and treat ordered Referral Ordered: Orthopedic Surgery (related to Pain in joint involving lower leg) ordered Referral Ordered: Referrals: Orthopedic Surgery. Evaluate and treat ordered Referral Ordered: COLONOSCOPY AND BIOPSY ordered Referral Ordered: MAMMOGRAM, SCREENING ordered Referral Ordered: CT LOWER EXTREMITY W/O DYE ordered Referral Ordered: US THYROID ordered Referral Ordered: LUMBAR XRAY AP AND LAT ONLY ordered Appointment Ange Macdonald BOOKED History Of Present Illness Encounter Date Complaint History Of Prese nt Illness pain Pt has chronic l ow back and knee pain Pt denies any worsening pain Pt denies any loss of bladder control. Pt takes ultram and norco PRN for pain and doing ok. Pt has neuropathy both leg. Pt takes neurontin and doing ok. Pt denies any saddle area paresthesia. Pt takes flexeril and neurontin as well. anxiety1 Pt has chronic a nxiety and depression . Pt denies any suicidal or homicidal thought. Pt takes cymbalta and xanax PRN and doing ok. migraine1 Pt has chronic m igraine headache Pt takes topamax and amitriptyline and she rarely has migraine. pt needs above medication refilled weight loss1 Pt has been losi ng weight Pt had negative EGD recently Pt does not want colonoscopy. Pt denies any early satiety, abd pain Pt has chronic abd pain Pt had negative EGD and ultrasound. Pt has not done HIDA yet pain Pt has chronic l ow back and knee pain Pt denies any worsening pain Pt denies any loss of bladder control. Pt takes ultram and norco PRN for pain and doing ok. Pt has neuropathy both leg. Pt takes neurontin and doing ok. Pt denies any saddle area paresthesia. Pt takes flexeril and neurontin as well. anxiety1 Pt has chronic a nxiety and depression Pt is very stressed out about her partner who is living with her. Pt has been having crying spells. Pt denies any suicidal or homicidal thought. Pt states that her partner is a horder and she wants him to move out. Pt takes cymbalta and xanax PRN and doing ok. her partner is moving out Anxiety1 Pt has chronic a nxiety and depression Pt is very stressed out about her partner who is living with her. Pt has been having crying spells. Pt denies any suicidal or homicidal thought. Pt states that her partner is a horder and she wants him to move out. Pt takes cymbalta and xanax PRN and doing ok. her partner is moving out pain Pt has chronic l ow back and knee pain Pt denies any worsening pain Pt denies any loss of bladder control. Pt takes ultram and norco PRN for pain and doing ok. Pt has neuropathy both leg. Pt takes neurontin and doing ok. Pt denies any saddle area paresthesia. Pt takes flexeril and neurontin as well. abd pain1 Pt has intermitt ent upper abd pain. Pt did not do HIDA scan Pt is seeing bariatric surgeon and she had EGD recently and was told normal. Pt has not followed up with surgeon yet. Pt denies any abd pain anxiety1 Pt has chronic a nxiety and depression Pt is very stressed out about her partner who is living with her. Pt has been having crying spells. Pt denies any suicidal or homicidal thought. Pt states that her partner is a horder and she wants him to move out. Pt takes cymbalta and xanax PRN and doing ok. her partner is moving out pain Pt has chronic l ow back and knee pain Pt denies any worsening pain Pt denies any loss of bladder control. Pt takes ultram and norco PRN for pain and doing ok. Pt has neuropathy both leg. Pt takes neurontin and doing ok. Pt denies any saddle area paresthesia. Pt takes flexeril and neurontin as well. thyroid1 pt has reyna pt is on synthroid her tsh is ok Pt denies any dysphagia or neck pain MCV Pt has borderlin e high MCV. Pt rarely drinks alcohol .she is not anemic Her b12 and folate is ok foot pain1 Pt c/o left 3rd and 4th toe pain chronically Pt has some tingling as well Pt denies any recent injury. Pt has history of left ankle injury many years ago with chronic left toe numbness and tingling. anxiety Pt has chronic a nxiety and depression Pt is very stressed out about her partner who is living with her. Pt has been having crying spells. Pt denies any suicidal or homicidal thought. Pt states that her partner is a horder and she wants him to move out. pain Pt has chronic l ow back and knee pain Pt denies any worsening pain Pt denies any loss of bladder control. Pt takes ultram and norco PRN for pain and doing ok. Pt has neuropathy both leg. Pt takes neurontin and doing ok. Pt denies any saddle area paresthesia. Pt takes flexeril and neurontin as well. GERD1 Pt has chronic G ERD Pt is seeing weight loss surgeon and she will do EGD soon Pt is getting omeprazole from weight loss surgeon thyroid pt has reyna pt is on synthroid Pt needs tsh checked. anxiety1 Pt has chronic a nxiety and depression. Pt denies any suicidal or homicidal thought Pt denies any crying spells. Pt states that she feels more depressed lately due to home situation. pain Pt has chronic l ow back and knee pain Pt denies any worsening pain Pt denies any loss of bladder control. Pt takes ultram and norco PRN for pain and doing ok. Pt has neuropathy both leg. Pt takes neurontin and doing ok. Pt denies any saddle area paresthesia. Pt takes flexeril and neurontin as well. edema1 Pt has mild LE e phong and she is on hctz and doing ok Pt needs it refill. pain Pt has chronic l ow back and knee pain Pt denies any worsening pain Pt denies any loss of bladder control. Pt takes ultram and norco PRN for pain and doing ok. Pt has neuropathy both leg. Pt takes neurontin and doing ok. Pt denies any saddle area paresthesia. Pt takes flexeril and neurontin as well. anxiety1 Pt has chronic a nxiety and depression Pt states that she is doing well with cymbalta with xanax. Pt denies any suicidal or homicidal thought Pt denies any crying spells hashimoto1 Pt has reyna Pt is on synthroid Pt denies any dysphagia or neck pain hearing loss1 Pt has bilateral hearing loss. Pt denies any tinnitus. Pt denies any ear pain Pt has not done hearing study yet abd pain1 Pt has chronic m idepigastric pain Pt has not done EGD and colonoscopy or HIDA yet. Pt saw GI doctor and she was recommended to see bariatric surgeon first before doing any of above hearing loss1 Pt c/o bilateral hearing loss. Pt denies any ear pain anxiety1 Pt has chronic a nxiety and depression Pt states that she is doing well with cymbalta with xanax. Pt denies any suicidal or homicidal thought Pt denies any crying spells abd pain1 pt has persisten t midepigastric area pain for several months Pt does have chronic GERd Pt is on omeprazole Pt denies any pain after food Pt states that eating makes the pain better. Pt has history of gastric bypass surgery. Pt denies any nausea, vomiting Pt denies any constipation or diarrhea or blood in stool. Pt had ultrasound done which showed fatty liver. She saw GI and had upper GI series with showed reflux and also HH. Pt is on omeprazole and she denies any GERD pt has mild appetite loss and she has been losing weight Pt has not followed up with GI for EGD and colonoscopy yet. Pt has not done HIDA scan yet pain Pt has chronic l ow back and knee pain Pt denies any worsening pain Pt denies any loss of bladder control. Pt takes ultram and norco PRN for pain and doing ok. Pt has neuropathy both leg. Pt takes neurontin and doing ok. Pt denies any saddle area paresthesia. Pt takes flexeril and neurontin as well. anxiety1 Pt has chronic a nxiety and depression Pt states that she is doing well with cymbalta with xanax. Pt denies any suicidal or homicidal thought Pt denies any crying spells abd pain1 pt has persisten t midepigastric area pain for several months Pt does have chronic GERd Pt is on omeprazole Pt denies any pain after food Pt states that eating makes the pain better. Pt has history of gastric bypass surgery. Pt denies any nausea, vomiting Pt denies any constipation or diarrhea or blood in stool. Pt had ultrasound done which showed fatty liver. She saw GI and had upper GI series with showed reflux and also HH. Pt is on omeprazole and she denies any GERD pt has mild appetite loss and she has been losing weight pain Pt has chronic l ow back and knee pain Pt denies any worsening pain Pt denies any loss of bladder control. Pt takes ultram and norco PRN for pain and doing ok. Pt has neuropathy both leg. Pt takes neurontin and doing ok. Pt denies any saddle area paresthesia. Pt takes flexeril and neurontin as well. UTI1 Pt c/o acute ons et of dysuria, urgency, frequency for two days .Pt states that she has the urge to urinate but very little urine comes out. Pt denies any pelvic pain, fever, chill. Pt did take levofloxacin for UTI recently and her symptoms resolved bur recurred again. anxiety1 Pt has chronic a nxiety and depression Pt states that she is doing well with cymbalta with xanax. Pt denies any suicidal or homicidal thought Pt denies any crying spells pain Pt has chronic l ow back and knee pain Pt denies any worsening pain Pt denies any loss of bladder control. Pt takes ultram and norco PRN for pain and doing ok. Pt has neuropathy both leg. Pt takes neurontin and doing ok. Pt denies any saddle area paresthesia. Pt takes flexeril and neurontin as well. abd pain1 pt has persisten t midepigastric area pain for several months Pt does have chronic GERd Pt is on omeprazole Pt denies any pain after food Pt states that eating makes the pain better. Pt has history of gastric bypass surgery. Pt denies any nausea, vomiting Pt denies any constipation or diarrhea or blood in stool. Pt had ultrasound done which showed fatty liver UTI1 Pt has UTI pt c/ o dysuria, frequency and urgency and incomplete emptying of the bladder for several days pt denies any fever, chill hashimoto1 Pt has reyna Pt takes synthroid, which is over replaced Pt denies any dysphagia or neck pain pt denies any palpitation or chest pian weight loss1 Pt has been losi ng weight unintentionally Pt denies any nausea, vomiting, appetite loss, early satiety, change of bowel pain Pt has chronic l ow back and knee pain Pt denies any worsening pain Pt denies any loss of bladder control. Pt takes ultram and norco PRN for pain and doing ok. Pt has neuropathy both leg. Pt takes neurontin and doing ok. Pt denies any saddle area paresthesia. Pt takes flexeril and neurontin as well. abd pain1 pt has persisten t midepigastric area pain for several months Pt does have chronic GERd Pt is on omeprazole Pt denies any pain after food Pt states that eating makes the pain better. Pt has history of gastric bypass surgery. Pt denies any nausea, vomiting Pt denies any constipation or diarrhea or blood in stool. anxiety1 Pt has chronic a nxiety and depression Pt states that she is doing well with cymbalta with xanax. Pt denies any suicidal or homicidal thought Pt denies any crying spells pelvic pain1 Pt c/o low pelvi c pain and pressure feeling for several months Pt also has been having urinary incontinence. Pt is able to urinate ok now since off oxybutynin Pt denies any vaginal bleeding. Her UA is clear .Pt also has urinary urgency as well Pt had pelvic ultrasound johnson which was completely normal. Pt has not made mitch with ELECTRIC VEH[employer]LE [employer] yet. She also feels sharp and stabbing pain sometimes low pelvic area pain Pt has chronic l ow back and knee pain Pt denies any worsening pain Pt denies any loss of bladder control. Pt takes ultram and norco PRN for pain and doing ok. Pt has neuropathy both leg. Pt takes neurontin and doing ok. Pt denies any saddle area paresthesia. Pt takes flexeril and neurontin as well. pt saw Dr. ascencio in the past and her knee was bone to bone. Pt states that her right knee pain is worse lately. Pt denies any injury or redness or warmth. pt saw Dr. Martinez and she had injection right knee which is helping her pain anxiety1 Pt has chronic a nxiety and depression Pt states that she is doing well with cymbalta with xanax. Pt denies any suicidal or homicidal thought Pt denies any crying spells pelvic pain1 Pt c/o low pelvi c pain and pressure feeling for several months Pt also has some dysuria Pt is able to urinate ok now since off oxybutynin Pt denies any vaginal bleeding Pt has not done UA yet pain Pt has chronic l ow back and knee pain Pt denies any worsening pain Pt denies any loss of bladder control. Pt takes ultram and norco PRN for pain and doing ok. Pt has neuropathy both leg. Pt takes neurontin and doing ok. Pt denies any saddle area paresthesia. Pt takes flexeril and neurontin as well. pt saw Dr. ascencio in the past and her knee was bone to bone. Pt states that her right knee pain is worse lately. Pt denies any injury or redness or warmth anxiety1 Pt has chronic a nxiety and depression Pt states that she is doing well with cymbalta with xanax. Pt denies any suicidal or homicidal thought Pt denies any crying spells pain Pt has chronic l ow back and knee pain Pt denies any worsening pain Pt denies any loss of bladder control. Pt takes ultram and norco PRN for pain and doing ok. Pt has neuropathy both leg. Pt takes neurontin and doing ok. Pt denies any saddle area paresthesia. Pt takes flexeril and neurontin as well. osteopporosis1 Pt has osteoporo sis. Pt is on fosamax and calcium and vitamin D. Pt tolerating fosamax ok urine retention1 pt states that she has been having difficulty urinating Pt states that she sit on toilet for one hour and not able to urinate sometimes Pt has history of OAB and she takes oxybutynin Pt also notices some dysuria as well. Pt denies any flank pain or fever or chill anxiety1 Pt has chronic a nxiety and depression Pt states that she is doing better with cymbalta BID along with xanax. Pt denies any suicidal or homicidal thought Pt denies any crying spells OAB Pt has OAB Pt ta kes oxybutynin and doing ok .pt denies any urinary symptoms anxiety1 Pt has chronic a nxiety and depression Pt states that she is doing better with cymbalta BID along with xanax. Pt denies any suicidal or homicidal thought Pt denies any crying spells pain Pt has chronic l ow back and knee pain Pt denies any worsening pain Pt denies any loss of bladder control. Pt takes ultram and norco PRN for pain and doing ok. Pt has neuropathy both leg. Pt takes neurontin and doing ok. Pt denies any saddle area paresthesia. Pt takes flexeril and neurontin as well. anxiety1 Pt has chronic a nxiety and depression Pt states that she is doing better with cymbalta BID along with xanax. Pt denies any suicidal or homicidal thought Pt denies any crying spells insomnia1 Pt has insomnia Pt doing ok with amitriptyline. Pt needs refilled migraine1 Pt has migraine Ajovy is not covered either Pt has not had much headache lately while on topamax . pain Pt has chronic l ow back and knee pain Pt denies any worsening pain Pt denies any loss of bladder control. Pt takes ultram and norco PRN for pain and doing ok. Pt has neuropathy both leg. Pt takes neurontin and doing ok. Pt denies any saddle area paresthesia. Pt takes flexeril and neurontin as well. pain Pt has chronic l ow back and knee pain Pt denies any worsening pain Pt denies any loss of bladder control. Pt takes ultram and norco PRN for pain and doing ok. Pt has neuropathy both leg. Pt takes neurontin and doing ok. Pt denies any saddle area paresthesia. Pt takes flexeril and neurontin as well. anxiety1 Pt has chronic a nxiety and depression Pt states that she feels horrible on pristiq and she went back to cymbalta again and her mood is actually better since going back on cymbalta. Pt denies any suicidal or homicidal thought Pt denies any crying spells migarine1 Pt has migraine headache Pt is on topamax. Aimovig worked great and she has not had any headache since injection but she received the letter from insurance stating aimovig is not covered anxiety1 Pt has chronic a nxiety and depression Pt takes cymbalta and xanax and she feels more depressed lately Pt denies any suicidal or homicidal thought Pt denies any crying spells .Pt states that she migraine1 pt has migraine headache Pt states that qulipta is too expensive. Pt is on topamax and imitrex PRn now Pt has been having migraine 1-2 per weekly lately with topamax and imitrex PRN pain Pt has chronic l ow back and knee pain Pt denies any worsening pain Pt denies any loss of bladder control. Pt takes ultram and norco PRN for pain and doing ok. Pt has neuropathy both leg. Pt takes neurontin and doing ok. Pt denies any saddle area paresthesia. Pt takes flexeril and neurontin as well. anxiety1 Pt has chronic a nxiety and depression Pt takes Cymbalta and xanax PRN and doing ok. Pt denies any suicidal or homicidal thought Pt denies any crying spells migaine1 Pt has chronic m igraine Pt has frequent breakthrough headache despite taking topamax. Pt states that imitrex does help. Pt started qulipta last month and she has been headache free since taking qulipta. Pt denies any acute headache. pain Pt has chronic l ow back and knee pain Pt denies any worsening pain Pt denies any loss of bladder control. Pt takes ultram and norco PRN for pain and doing ok. Pt has neuropathy both leg. Pt takes neurontin and doing ok. Pt denies any saddle area paresthesia. Pt takes flexeril and neurontin as well. anxiety Pt has chronic a nxiety and depression. Pt denies any suicidal or homicidal thought. Pt denies any crying spells. Pt takes cymbalta and xanax PRn and doing ok. thryoid Pt has reyna thyroid disease Pt denies any dysphagia or neck pain Pt doing ok with current synthroid. pain Pt has chronic l ow back and knee pain Pt denies any worsening pain Pt denies any loss of bladder control. Pt takes ultram and norco PRN for pain and doing ok. Pt has neuropathy both leg. Pt takes neurontin and doing ok. Pt denies any saddle area paresthesia. migraine1 Pt has chronic m igraine headache .Pt takes topamax but she has been having more break through headache daily. Pt denies any head injury or waking up at night with headache . UTI1 Pt c/o acute ons et of UTI symptoms since 3 days ago .Pt c/o dysuria, urgency, frequency, incomplete emptying, low pelvic pressure. pt denies any fever, chill, flank pain, nausea, vomiting .Pt has been drinking cranberry juice anxiety1 Pt has chronic a nxiety and depression. Pt denies any suicidal or homicidal thought. Pt denies any crying spells. Pt takes cymbalta and xanax PRn and doing ok. osteoporosis1 Pt has osteoporo sis Pt started fosamax last month and she is doing ok Pt denies any side effects hearing loss1 Pt c/o right ear hearing loss for several months Pt denies any ear pain or drainage Pt denies any sinus issue. pt denies any tinnitus pain Pt has chronic l ow back and knee pain Pt denies any worsening pain Pt denies any loss of bladder control. Pt takes ultram and norco PRN for pain and doing ok. Pt has neuropathy both leg. Pt takes neurontin and doing ok. Pt denies any saddle area paresthesia. GERD1 Pt has chronic G ERD Pt takes omeprazole and doing ok Pt denies any abd pain or nausea, vomiting GERD. Pt failed pepcid. Pt has daily GERD without omeprazole osteoporosis1 pt has osteoporo sis. Pt takes calcium and D Pt denies any fracture. anxiety1 Pt has chronic a nxiety and depression. Pt denies any suicidal or homicidal thought. Pt denies any crying spells. Pt takes cymbalta and xanax PRn and doing ok. pain Pt has chronic l ow back and knee pain Pt denies any worsening pain Pt denies any loss of bladder control. Pt takes ultram and norco PRN for pain and doing ok. Pt has neuropathy both leg. Pt takes neurontin and doing ok. Pt denies any saddle area paresthesia. anxiety1 Pt has chronic a nxiety and depression. Pt denies any suicidal or homicidal thought. Pt denies any crying spells. Pt takes cymbalta and xanax PRn and doing ok. heart murmur1 Pt has chronic c ardiac murmur. Pt denies any chest pain or sob Pt has murmur for many years Pt had cardiac echo done which showed aortic regur. Pt denies any edema pain Pt has chronic l ow back and knee pain Pt denies any worsening pain Pt denies any loss of bladder control. Pt takes ultram and norco PRN for pain and doing ok. Pt has neuropathy both leg. Pt takes neurontin and doing ok. Pt denies any saddle area paresthesia. anxiety1 Pt has chronic a nxiety and depression. Pt denies any suicidal or homicidal thought. Pt denies any crying spells. Pt takes cymbalta and xanax PRn and doing ok. pain1 Pt has chronic l ow back and knee pain Pt denies any worsening pain Pt denies any loss of bladder control. Pt takes ultram and norco PRN for pain and doing ok. Pt has neuropathy both leg. Pt takes neurontin and doing ok. Pt denies any saddle area paresthesia. thyroid1 Pt has reyna . Pt takes synthroid and is slightly elevated phos1 Pt has borderlin e high phos. Pt does take multiple supplement. pt denies any chest pain, weakness physical Pt needs annual physical. Pt has chronic low back pain and knee pain. pt takes neurontin also Pt takes norco and ultram as well. Pt denies any worsening pain. Pt denies any loss of bowel or bladder control. Pt denies any saddle area paresthesia Pt has anxiety and depression ,Pt takes cymbalta and xanax and doing ok Pt denies any suicidal or homicidal thought. Pt has chronic migraine headache Pt takes amitriptyline and topamax and she does not have any headache. Pt has sleep apnea and she does not want to use CPAP. Pt has chronic GERD. Pt takes omeprazole Pt has hypothyroidism Pt takes synthroid . Pt also c/o severe neck pain for a while Pt denies any neck injury Pt failed chiropractice adjustment. pt denies any radiculopathy. .Pt notices thinning of her hairline Pt denies any bald spot or scalp itching. Pt denies any new complaints osteopenia1 Pt has osteopeni a Pt takes calcium and D. Pt denies any fracture hair loss1 Pt notices some hair loss recently .Pt is stressed out about her boyfriend. Pt denies any scalp rash anxiety1 Pt has chronic a nxiety and depression. Pt denies any suicidal or homicidal thought. Pt denies any crying spells. Pt takes cymbalta and xanax PRn and doing ok. pain Pt has chronic l ow back and knee pain Pt denies any worsening pain Pt denies any loss of bladder control. Pt takes ultram and norco PRN for pain and doing ok. Pt has neuropathy both leg. Pt takes neurontin and doing ok. Pt denies any saddle area paresthesia. insomnia1 Pt has chronic i nsomnia Pt takes amitriptyline and doing ok Pt needs it refilled. anxiety1 Pt has chronic a nxiety and depression. Pt denies any suicidal or homicidal thought. Pt denies any crying spells. Pt takes cymbalta and xanax PRn and doing ok. headache1 Pt has chronic m igraine headache Pt denies any head injury Pt denies waking up at night with headache Pt takes topamax and doing ok Pt rarely has headache while on topamax. eye bleeding1 Pt notices mild right eye bleeding for two days ,Pt denies any eye injury Pt denies any sneezing or headache. Pt denies any eye pain or vision change. pain Pt has chronic l ow back and knee pain Pt denies any worsening pain Pt denies any loss of bladder control. Pt takes ultram and norco PRN for pain and doing ok. Pt has neuropathy both leg. Pt takes neurontin and doing ok. Pt denies any saddle area paresthesia. anxiety1 Pt has chronic a nxiety and depression. Pt denies any suicidal or homicidal thought. Pt denies any crying spells. Pt takes cymbalta and xanax PRn and doing ok. pain Pt has chronic l ow back and knee pain Pt denies any worsening pain Pt denies any loss of bladder control. Pt takes ultram and norco PRN for pain and doing ok. Pt has neuropathy both leg. Pt takes neurontin and doing ok. Pt denies any saddle area paresthesia. sick Pt c/o feeling s ick to her stomach, nausea, slightly lightheadedness, without vomiting, some hot sweat for several hours. Pt did not eat breakfast and lunch Pt denies any abd pain, or diarrhea. Pt denies any fever. Pt denies any headache . Pt denies any cough or fever, sob anxiety1 Pt has chronic a nxiety and depression Pt denies any suicidal or homicidal thought Pt denies any crying spells. she is doing well on cymbalta and xanax PRN pain Pt has chronic l ow back and knee pain Pt denies any worsening pain Pt denies any loss of bladder control. Pt takes ultram and norco PRN for pain and doing ok. Pt has neuropathy both leg. Pt takes neurontin and doing ok. Pt denies any saddle area paresthesia. anxiety1 Pt has chronic a nxiety and depression Pt denies any suicidal or homicidal thought Pt denies any crying spells. Pt started cymbalta last month and she is doing much better while on cymbalta. Pt is off prozac. pain Pt has chronic l ow back and knee pain Pt denies any worsening pain Pt denies any loss of bladder control. Pt takes ultram and norco PRN for pain and doing ok. Pt has neuropathy both leg. Pt takes neurontin and doing ok. Pt denies any saddle area paresthesia. anxiety1 Pt has chronic a nxiety and depression Pt denies any suicidal or homicidal thought Pt denies any crying spells. 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 She states that pharmacy would not give to her since she just picked up prozac? pain Pt has chronic l ow back and knee pain Pt denies any worsening pain Pt denies any loss of bladder control. Pt takes ultram and norco PRN for pain and doing ok. Pt has neuropathy both leg. Pt takes neurontin and doing ok. Pt denies any saddle area paresthesia. pain Pt has chronic l ow back and knee pain Pt denies any worsening pain Pt denies any loss of bladder control. Pt takes ultram and norco PRN for pain and doing ok. Pt has neuropathy both leg. Pt takes neurontin and doing ok. Pt denies any saddle area paresthesia. anxiety1 Pt has chronic a nxiety and depression Pt takes prozac and xanax PRn. Pt states that she feels more depressed lately. ,Pt denies any suicidal or homicidal thought Pt denies any crying spells. Pt wants to try higher dose of prozac hypothyroidism1 Pt has hypothyro idism. Pt denies any dysphagia or neck pain. Pt needs synthroid refilled. pain Pt has chronic l ow back and knee pain Pt denies any worsening pain Pt denies any loss of bladder control. Pt takes ultram and norco PRN for pain and doing ok. Pt has neuropathy both leg. Pt takes neurontin and doing ok. Pt denies any saddle area paresthesia. Pt needs flexeril refilled anxiety1 Pt has chronic a nxiety and depression Pt takes prozac and xanax PRn. Pt states that she feels more depressed lately. ,Pt denies any suicidal or homicidal thought Pt denies any crying spells. migraine1 Pt has chronic m igraine headache Pt takes topamax and Imitrex PRN .Pt had normal MRI of brain ,Pt notices more frequent migraine headache lately. Pt denies any head injury or waking up at night with headache pain Pt has chronic l ow back and knee pain Pt denies any worsening pain Pt denies any loss of bladder control. Pt takes ultram and norco PRN for pain and doing ok. Pt has neuropathy both leg. Pt takes neurontin and doing ok. anxiety1 Pt has chronic a nxiety and depression Pt takes prozac and xanax PRn. Pt states that she feels more depressed lately. ,Pt denies any suicidal or homicidal thought Pt denies any crying spells. pain Pt has chronic l ow back and knee pain Pt denies any worsening pain Pt denies any loss of bladder control. Pt takes ultram and norco PRN for pain and doing ok. Pt has neuropathy both leg. Pt takes neurontin and doing ok. Pt denies any saddle area paresthesia. Pt needs flexeril refilled anxieyt1 Pt has chronic a nxiety and depression Pt takes prozac and xanax PRn. Pt states that she feels more depressed lately. ,Pt denies any suicidal or homicidal thought Pt denies any crying spells. GERD1 Pt has chronic G ERD Pt doing ok with omeprazole. Pt failed pepcid Pt has daily GERD without omeprazole phos Pt has borderlin e high phos Pt takes two daily vitamins .Pt denies any muscle pain or weakness, or paresthesia pain Pt has chronic l ow back and knee pain Pt denies any worsening pain Pt denies any loss of bladder control. Pt takes ultram and norco PRN for pain and doing ok. Pt has neuropathy both leg. Pt takes neurontin and doing ok. anxiety1 Pt has chronic a nxiety and depression Pt takes prozac and xanax PRn and doing ok ,Pt denies any suicidal or homicidal thought Pt denies any crying spells. OAB Pt has OAB. Pt t akes oxybutynin and doing ok Pt denies any dysuria, urinary urgency and frequency. 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 anxiety1 Pt has chronic a nxiety and depression Pt takes prozac and xanax PRn and doing ok ,Pt denies any suicidal or homicidal thought Pt denies any crying spells. pain Pt has chronic l ow back and knee pain Pt denies any worsening pain Pt denies any loss of bladder control. Pt takes ultram and norco PRN for pain and doing ok. Pt has neuropathy both leg. Pt takes neurontin and doing ok. physical Pt needs annual physical. Pt has chronic low back pain and knee pain. pt takes neurontin also Pt takes norco as well. Pt denies any worsening pain. Pt denies any loss of bowel or bladder control. Pt denies any saddle area paresthesia Pt has anxiety and depression ,Pt takes prozac and xanax and doing ok Pt denies any suicidal or homicidal thought. Pt has chronic migraine headache Pt takes amitriptyline and topamax and she does not have any headache. Pt has sleep apnea and she is doing well with CPAP currently. Pt has chronic GERD. Pt takes omeprazole Pt has hypothyroidism Pt takes synthroid ..Pt denies any new complaints pain Pt has chronic l ow back and knee pain Pt denies any worsening pain Pt denies any loss of bladder control. Pt takes ultram and norco PRN for pain and doing ok. Pt has neuropathy both leg. Pt takes neurontin and doing ok. anxiety Pt has chronic a nxiety and depression Pt takes prozac and xanax PRn and doing ok ,Pt denies any suicidal or homicidal thought Pt denies any crying spells. migraine Pt has chronic m igraine headache Pt denies any head injury or waking up at night with headache Pt takes topamax and she is headache free Pt had normal MRI of brain [id number] Pt has chronic i nsomnia. Pt takes amitriptyline and doing ok. Pt denies any dry mouth or fatigue pt uses cpap nightly for sleep apnea pain Pt has chronic l ow back and knee pain Pt denies any worsening pain Pt denies any loss of bladder control. Pt takes ultram and norco PRN for pain and doing ok. Pt has neuropathy both leg. Pt takes neurontin and doing ok. [id number] Pt has chronic a nxiety and depression Pt takes prozac and xanax PRn and doing ok ,Pt denies any suicidal or homicidal thought Pt denies any crying spells. pain Pt has chronic l ow back and knee pain Pt denies any worsening pain Pt denies any loss of bladder control. Pt takes ultram and norco PRN for pain and doing ok. Pt has neuropathy both leg. Pt takes neurontin and doing ok. anxiety Pt has chronic a nxiety and depression Pt takes prozac and xanax PRn and doing ok ,Pt denies any suicidal or homicidal thought Pt denies any crying spells. sore throat1 Pt c/o acute ons et of sore throat for 2-3 days. pt denies any dysphagia, neck pain Pt denies any fever, chill, cough, or sob. Pt is fully vaccinated for COVID. Pt denies any headache or stiff neck. Pt denies any rash pain Pt has chronic l ow back and knee pain Pt denies any worsening pain Pt denies any loss of bladder control. Pt takes ultram and norco PRN for pain and doing ok. Pt has neuropathy both leg. Pt takes neurontin and doing ok. anxiety Pt has chronic a nxiety and depression Pt takes prozac and xanax PRn ,Pt denies any suicidal or homicidal thought Pt denies any crying spells. COVID Pt was tested po sitive for COVID 5 days ago. pt is fully vaccinated Pt only has mild loss of taste and smell and fatigue Pt denies any fever, chill, sore throat, GI symptoms Pt has very mild cough without any sob. Pt has been self quarantine at home since 5 days ago. weight loss1 Pt has been grad ually losing weight Pt states that she is trying to diet and exercise Pt denies any appetite loss, nausea, vomiting, diarrhea, change of bowel , GI bleeding, etc Pt denies any early satiety pain Pt has chronic l ow back and knee pain Pt denies any worsening pain Pt denies any loss of bladder control. Pt takes ultram and norco PRN for pain and doing ok. Pt has neuropathy both leg. Pt takes neurontin and doing ok. anxiety Pt has chronic a nxiety and depression Pt takes prozac and xanax PRn ,Pt denies any suicidal or homicidal thought Pt denies any crying spells. mammo Pt denies any br east issue Pt needs mammogram LDCT Pt denies any he moptysis, sob or cough Pt needs LDCT. Pt no longer smoking pain Pt has chronic l ow back and knee pain Pt denies any worsening pain Pt denies any loss of bladder control. Pt takes ultram and norco PRN for pain and doing ok. Pt has neuropathy both leg. Pt takes neurontin and doing ok. anxiety1 Pt has chronic a nxiety and depression Pt takes prozac and xanax PRn ,Pt denies any suicidal or homicidal thought Pt denies any crying spells. hypothyroidism Pt has hypothyro idism. Pt denies any dysphagia or neck pain Pt takes synthroid and doing ok. Pt has reyna disease anxiety Pt has chronic a nxiety and depression Pt takes prozac and xanax PRn ,Pt denies any suicidal or homicidal thought Pt denies any crying spells. pain Pt has chronic l ow back and knee pain Pt denies any worsening pain Pt denies any loss of bladder control. Pt takes ultram and norco PRN for pain and doing ok. Pt has neuropathy both leg. Pt takes neurontin and doing ok. pain Pt has OAB with urinary urgency. pt states that oxybutynin works well Pt denies any dry mouth OAB Pt c/o urinary u rgency for 6 months Pt denies any frequency, Pt denies any frequent urination at night Pt denies any dysuria pt notices that she has to go urinate and she can not hold and she has to urinate right away and sometimes she can not wait until getting into bathroom and she leaks. pt denies any flank pain. Pt states that oxybutynin works great, however, she feels severe dry mouth with it. anxiety Pt has chronic a nxiety and depression Pt takes prozac and xanax PRn ,Pt denies any suicidal or homicidal thought Pt denies any crying spells. pain Pt has chronic l ow back and knee pain Pt denies any worsening pain Pt denies any loss of bladder control. Pt takes ultram and norco PRN for pain and doing ok. Pt has neuropathy both leg. Pt takes neurontin and doing ok. GERD Pt needs omepraz ole refilled. Pt denies any abd pain or GERD Pt failed pepcid. Pt had benign EGD. urgency1 Pt c/o urinary u rgency for 6 months Pt denies any frequency, Pt denies any frequent urination at night Pt denies any dysuria pt notices that she has to go urinate and she can not hold and she has to urinate right away and sometimes she can not wait until getting into bathroom and she leaks. pt denies any flank pain. pain Pt has chronic l ow back and knee pain Pt denies any worsening pain Pt denies any loss of bladder control. Pt takes ultram and norco PRN for pain and doing ok. Pt has neuropathy both leg. Pt takes neurontin and doing ok. anxiety Pt has chronic a nxiety and depression Pt takes prozac and xanax PRn ,Pt denies any suicidal or homicidal thought Pt denies any crying spells. pain Pt has chronic l ow back and knee pain Pt denies any worsening pain Pt denies any loss of bladder control. Pt takes ultram and norco PRN for pain and doing ok. Pt has neuropathy both leg. Pt takes neurontin and doing ok. anxiety Pt has chronic a nxiety and depression Pt takes prozac and xanax PRn ,Pt denies any suicidal or homicidal thought Pt denies any crying spells. pain1 Pt has chronic l ow back and knee pain Pt denies any worsening pain Pt denies any loss of bladder control. Pt takes ultram and norco PRN for pain and doing ok. Pt has neuropathy both leg. Pt takes neurontin and doing ok. anxiety Pt has chronic a nxiety and depression Pt takes prozac and xanax PRn ,Pt denies any suicidal or homicidal thought Pt denies any crying spells. pain Pt has chronic l ow back and knee pain Pt denies any worsening pain Pt denies any loss of bladder control. Pt takes ultram and norco PRN for pain and doing ok. Pt has neuropathy both leg. Pt takes neurontin and doing ok. pt wants to take norco x 4 per day Pt states tat current dose is not helping anxiety Pt has chronic a nxiety and depression Pt takes prozac and xanax PRn ,Pt denies any suicidal or homicidal thought Pt denies any crying spells. headache1 Pt has worsening migraines Pt states that she went to see neurology who increased topamax to BID and she is feeling better. Pt denies any acute headache osteopenia1 Pt has osteopeni a Pt takes Multivitamins. Pt has low D . Pt denies any fracture edema1 Pt has mild depe ndent edema. Pt takes HCTZ and doing ok Pt needs refill uric acid1 Pt has high uric acid crystal in urine .Pt denies any gout anxiety1 Pt has chronic a nxiety and depression Pt takes prozac and xanax PRn ,Pt denies any suicidal or homicidal thought Pt denies any crying spells. pain Pt has chronic l ow back and knee pain Pt denies any worsening pain Pt denies any loss of bladder control. Pt takes ultram and norco PRN for pain and doing ok. Pt has neuropathy both leg. Pt takes neurontin and doing ok. physical Pt needs annual physical. Pt has chronic low back pain and knee pain. pt takes neurontin also Pt takes norco as well. Pt denies any worsening pain .Pt has anxiety and depression ,Pt takes prozac and xanax and doing ok Pt denies any suicidal or homicidal thought. Pt has chronic migraine headache Pt takes amitriptyline and topamax and she does not have any headache. Pt has sleep apnea and she is doing well with CPAP currently. Pt has chronic GERD. Pt takes omeprazole .Pt denies any new complaints anxiety1 Pt has chronic a nxiety and depression Pt takes prozac and xanax PRn ,Pt denies any suicidal or homicidal thought Pt denies any crying spells. sleep apnea1 Pt got her cpap setting at 7 cm and she is doing well Pt denies any snoring. Pt feels less fatigue migraine1 Pt has chronic m igraine headache. Pt has throbbing headache daily despite taking topamax. Pt states that imitrex did not help Pt does have photophobia and nausea with headache Pt denies any acute headache. Pt denies any head injury or waking up at night with headache pain1 Pt has chronic l ow back and knee pain Pt denies any worsening pain Pt denies any loss of bladder control. Pt takes ultram and norco PRN for pain and doing ok. Pt has neuropathy both leg. Pt takes neurontin and doing ok. pain Pt has chronic l ow back and knee pain Pt denies any worsening pain Pt denies any loss of bladder control. Pt takes ultram and norco PRN for pain and doing ok. Pt has neuropathy both leg. Pt takes neurontin and doing ok. anxiety1 Pt has chronic a nxiety and depression Pt takes prozac and xanax PRn ,Pt denies any suicidal or homicidal thought Pt denies any crying spells. 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 Pt has photophobia with nausea with headache . headache1 Pt has chronic m igraine headache. Pt takes topamax and amitriptyline and doing ok. Pt notices improvement of migraine and she has headache on average once per week now Pt denies any acute headache pain Pt has chronic l ow back and knee pain Pt denies any worsening pain Pt denies any loss of bladder control. Pt takes ultram and norco PRN for pain and doing ok. Pt has neuropathy both leg. Pt takes neurontin and doing ok. anxiety1 Pt has chronic a nxiety and depression Pt takes prozac and xanax and doing ok PT denies any suicidal or homicidal thought. Pt denies any crying spells sleep apnea1 Pt has sleep career placement specialist ea. Pt is working with [facility] for CPAP set up. pain Pt has chronic l ow back and knee pain Pt denies any worsening pain Pt denies any loss of bladder control. Pt takes ultram and norco PRN for pain and doing ok. Pt has neuropathy both leg. Pt takes neurontin and doing ok. anxiety1 Pt has chronic a nxiety and depression Pt takes prozac and xanax PRn ,Pt denies any suicidal or homicidal thought Pt denies any crying spells. hypothyroidism1 Pt has low thyro id.. Pt takes synthroid. Pt denies any dysphagia. Pt needs thyroid refilled. leg Pt was cutting g rass with law mower and accidently a piece of metal flew out and went into right lower calf and came out of the front of her leg without bone injury on 01/17/20. ,Pt went to ER and x ray showed normal tib/fib. Pt went to ER and had wound cleaned and received Tdap and she was given abx and she has to go back to urgent care again early this week due to recurrent infection Pt currently is on clindamycin and she is doing better. Pt denies any redness or warmth or any drainage Pt denies any pain Pt currently has the wound wrapped. Pt denies any fever ,cold extremity anxiety1 Pt has chronic a nxiety and depression Pt takes prozac and xanax and doing ok. Pt denies any suicidal or homicidal thought pt denies any crying spells pain Pt has chronic l ow back and knee pain Pt denies any worsening pain pt denies any loss of bladder control Pt had injection by ortho which helped her knee pain. Pt takes ultram and norco PRN for pain and doing ok. Pt has neuropathy both leg. Pt takes neurontin and doing ok. pain Pt has chronic l ow back and knee pain Pt denies any worsening pain pt denies any loss of bladder control Pt had injection by ortho which helped her knee pain. Pt takes ultram and norco PRN for pain and doing ok. Pt has neuropathy both leg. Pt takes neurontin and doing ok. anxiety1 Pt has chronic a nxiety and depression Pt takes prozac and xanax and doing ok. Pt denies any suicidal or homicidal thought pt denies any crying spells GERD1 Pt has chronic G ERD Pt takes omeprazole. Pt failed pepcid sleep apnea1 Pt is using cpap now. Pt supposes to do another home sleep study but [facility] is not open now. sleep apnea1 Pt has sleep career placement specialist ea. Pt still has not received CPAP yet. Pt is not sure why. Pt had the sleep study over 20 years and setting has never changed. Pt states that she is on 7 cm. her order from [facility] was between 5-10 APAP. Pt needs supplies Pt still using apap currently. Pt still feels mildly fatigue in the morning. pain1 Pt has chronic l ow back and knee pain Pt denies any worsening pain pt denies any loss of bladder control Pt had injection by ortho which helped her knee pain. Pt takes ultram and norco PRN for pain and doing ok. Pt has neuropathy both leg. Pt takes neurontin and doing ok. anxiety1 Pt has chronic a nxiety and depression Pt takes prozac and xanax and doing ok. Pt denies any suicidal or homicidal thought pt denies any crying spells pain Pt has chronic l ow back and knee pain Pt denies any worsening pain pt denies any loss of bladder control Pt had injection by ortho which helped her knee pain. Pt takes ultram and norco PRN for pain and doing ok. Pt has neuropathy both leg. Pt takes neurontin and doing ok sleep apnea1 Pt will get cpap soon. paper work is ok tobacco1 Pt needs LDCT fo r lung CA screening Pt denies any chest pain, sob or hemoptysis anxiety1 Pt has chronic a nxiety and depression Pt takes prozac and xanax and doing ok. Pt denies any suicidal or homicidal thought pt denies any crying spells pain Pt has chronic l ow back and knee pain Pt denies any worsening pain pt denies any loss of bladder control Pt had injection by ortho which helped her knee pain. Pt takes ultram and norco PRN for pain and doing ok. Pt has neuropathy both leg. Pt takes neurontin sleep apnea1 Pt had positive sleep study 20 years ago at [facility]. Pt has been using cpap but she needs new supply. Pt doing ok with current setting .Her old [employer] company does not take her insurance so she needs form completed for new company. Pt currently using CPAP setting at 7 for many years. 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 Pt denies any suicidal or homicidal thought pt denies any crying spells headache1 Pt has migraine headache Pt states that she has not had any migraine headache since taking higher dose of amitriptyline Pt takes topamax. Pt denies any acute headache. Pt takes imitrex which helps migraine1 Pt has frequent migraine headache Pt takes topamax and amitriptyline Pt denies any head injury Pt denies waking up at night with headache Pt had at least 5-6 migraine last month Pt states that imitrex works well . pain Pt has chronic l ow back and knee pain Pt denies any worsening pain pt denies any loss of bladder control Pt had injection by ortho which helped her knee pain. Pt takes ultram and norco PRN for pain and doing ok. Pt has neuropathy both leg. Pt takes neurontin BID instead of TID anxiety1 Pt has chronic a nxiety and depression Pt takes prozac and xanax and doing ok. Pt denies any suicidal or homicidal thought pt denies any crying spells anxiety1 Pt has chronic a nxiety and depression Pt takes prozac and xanax and doing ok. Pt denies any suicidal or homicidal thought pt denies any crying spells chronic pain1 Pt has chronic l ow back and knee pain Pt denies any worsening pain pt denies any loss of bladder control Pt had injection by ortho which helped her knee pain. Pt takes ultram and norco PRN for pain and doing ok IBS1 pt has IBS and b loating and gassy pt doing better with amitriptyline headache1 pt has been havi ng worsening migraine lately Pt c/o throbbing headache right temporal area constantly with photophobia and nausea. Pt takes topamax and amitriptyline pt had normal MRi of brain Pt denies any head injury or waking up at night with headache gassy Pt had gastric b ypass two years ago Pt c/o severe gas since the surgery Pt denies any abd pain or bloating Pt denies any constipation or diarrhea Pt states that she is excessively gassy all the time, regardless of food or water Pt denies any blood in stool. Pt denies any abd pain, early satiety or bloating. Pt tried OTC meds without improvement. anxiety1 Pt has chronic a nxiety and depression Pt takes prozac and xanax and doing ok. Pt denies any suicidal or homicidal thought pt denies any crying spells pain Pt has chronic l ow back and knee pain Pt denies any worsening pain pt denies any loss of bladder control Pt had injection by ortho which helped her knee pain Physical Pt needs annual physical Pt has chronic knee and back pain, Pt is getting injection by ortho now for her knee pt denies any worsening pain Pt denies any loss of bladder control pt has low thyroid Pt takes synthroid. Pt has chronic GERD. Pt takes omeprazole and doing ok pt has anxiety and depression. Pt takes prozac and xanax PRn Pt takes neurontin for back pain. Pt denies any numbness pt has chronic headache Pt takes topamax and she is headache free. Pt has HTN and she takes hctz pt has sleep apnea Pt uses cpap nightly anxiety1 Pt has chronic a nxiety and depression Pt takes prozac and xanax and doing ok. Pt denies any suicidal or homicidal thought pt denies any crying spells chronic pain1 Pt has chronic k nee and back pain, Pt has mitch with ortho soon Pt take norco and ultram PRn for pain, pt failed NSAID and ultram anxiety1 Pt has chronic a nxiety and depression Pt takes prozac and xanax and doing ok. Pt denies any suicidal or homicidal thought pt denies any crying spells glucose1 Pt has borderlin e high glucose. pt denies any polyuria, polydipsia. pt has chronic sinus congestion and sneezing Pt denies any sinus drainage Pt wants to try floanse osteopenia1 Pt has osteopeni a. Pt denies any fx. Pt takes calcium and D and is working on weight bearing exercise thyroid1 Pt takes synthro id. Pt denies and weight gain or loss pt denies any headache or chest pain. her TSH is ok GERD1 Pt has chronic G ERd pt failed zantac. Pt takes omeprazole. Pt denies any gerd. her Mag is ok chronic pain1 Pt has chronic l ow back and knee pain Pt denies any worsening pain pt denies any loss of bladder control chronic pain1 Pt has chronic b ack and knee pain Pt denies any worsening pain Pt denies any loss of bladder control Pt has mild sciatica. anxiety1 pt has chronic a nxiety and depression Pt takes prozac and xanax PRn and doing ok Pt denies any suicidal or homicidal thought thyroid1 Pt has hypothyro idism. Pt takes synthroid. Pt has autoimmune thyroid disease. Pt had benign thyroid ultrasound. Pt denies any dysphagia GERD1 Pt has GERD. pt takes omeprazole daily. Pt denies any GERD or abd pain anxiety1 Pt has chronic a nxiety and depression Pt takes prozac and xanax pRn and doing ok Pt denies any suicidal ro homicidal thought UTI1 Pt denies any ur inary symptoms Pt took macrobid PT denies any flank pain or fever or chill toothache1 Pt c/o left uppe r toothache for 4-5 days with some left facial pain Pt denies any swelling pt denies any ear pain Pt c/o throbbing pain. Pt denies any facial numbness or drooping chronic pain1 pt has chronic l ow back and knee pain Pt denies any worsening pain Pt denies any loss of bladder control. pt failed NSAID and ultram UTI1 Pt c/o urinary u rgency and frequency but she only has small amount of urine when she does. Pt notices mild dysuria, Pt denies any flank pain or pelvic pain Pt denies any fever, chill pt feels some pelvic pressure pain1 Pt has chronic l ow back and knee pain Pt denies any worsening pain Pt denies any loss of bladder control. Pt has arthritis. Pt failed NSAID anxiety1 Pt has chronic a nxiety and depression, Pt takes prozac and xanax PRn and doing ok Pt denies any suicidal or homicidal thought anxiety1 Pt has chronic a nxiety and depression Pt takes prozac and xanax PRn and doing ok pt denies any suicidal or homicidal thought chronic pain1 pt has chronic l ow back and knee pain Pt denies any worsening pain. Pt denies any loss of bladder control. Pt has arthritis around knee and back, Pt does not want knee replacement GERD1 Pt has GERD. Pt has esophagitis pt doing ok with omeprazole. Pt failed zantac. pt has daily GERD without omeprazole. chronic pain1 Pt has chronic l ow back and knee pain pt has severe arthritis of the knee pt needs handicap sticker completed pt denies any swelling of the knee anxiety1 Pt has chronic a nxiety and depression Pt takes prozac and xanax PRN and doing ok Pt denies any suicidal or homicidal thought. Pt denies any crying spells Anxiety1 Pt has chronic a nxiety and depression. Pt takes prozac and xanax PRN and doing ok Pt denies any suicidal or homicidal thought. Pt denies any crying spells chronic pain1 Pt has chronic b ack and knee pain. Pt has DDD. Pt has arthritis. Pt denies any swelling or redness. Pt has mild sciatica and leg numbness. Pt denies any loss of bowel or bladder control. pt has 7/10 pain Pt failed NSAID and ultram tobacco1 Pt had normal LD CT. Pt denies any sob. pt no longer smoking corn1 Pt notices a cor n like lesion medical left 2nd toe for several months with pain. Pt denies any bleeding chronic pain1 Pt has chronic l ow back and knee pain pt denies any worsening pain. pt takes norco and ultram PRn for pain. pt denies any worsening pain pt denies any loss of bladder control. Pt denies any sciatica Pt has 7/10 pain anxiety1 Pt has chronic a nxiety and depression. Pt takes prozac and xanax PRn and doing ok. Pt denies any suicidal or homicidal thought pt denies any crying spells mammo Pt has benign le ft breast mammo and ultrasound. Pt denies any breast issue chronic pain1 Pt has chronic l ow back and knee pain Pt takes ultram and norco PRN for pain Pt denies any loss of bladder control. Pt failed NSAID and ultram anxiety 1 Pt has chronic a nxiety and depression. Pt denies any prozac and xanax PRn and doing ok. Pt denies any suicidal or homicidal thought. gerd1 Pt has chronic G ERD Pt doing ok with omeprazole Pt failed zantac. Pt has daily GERD without omeprazole. glucose1 Pt denies any po lyuria, polydipsia. her glucose and A1c is normal fatigue1 Pt feels chronic fatigue. pt has sleep apnea. Pt uses CPAP nightly. Pt is not very active. Pt denies any sob mammo Pt has abnormal screening mammo Pt denies any breast issue smoking Pt has more than 30 pack year tobacco. Pt quit smoking last year. Pt denies any sob chronic pain1 Pt has chronic l ow back and knee pain. Pt denies any worsening pain Pt failed NSAID and ultram. Pt denies any loss of bladder control anxiety1 Pt has chronic a nxiety and depression Pt denies any suicidal or homicidal thought. Pt denies any crying spells Pt takes prozac and xanax PRn and doing ok. Pt denies any suicidal or homicidal thought glucose Pt has high gluc ose. Pt denies any polyuria, polydipsia. pt did not do lab fasting chronic pain1 Pt has chronic l ow back and knee pain. Pt failed NSAID and ultram Pt denies any worsening pain. Pt denies any loss of bladder control anxiety1 Pt has chronic a nxiety and depression Pt takes prozac and xanax PRn and doing ok. Pt denies any suicidal or homicidal thought. Pt denies any crying spells Physical Pt needs annual physical. Pt has chronic migraine headache Pt takes topamax and she does not have any headache while on topamax. Pt has chronic low back and knee pain Pt has DDD pt denies any worsening pain pt denies any loss of bladder control Pt has GERD Pt takes omeprazole. and doing ok. Pt has chronic anxiety and depression pt takes prozac and xanax PRn and doing ok Pt denies any suicidal or homicidal thought Pt denies any crying spells. Pt has benign cardiac murmur Pt denies any chest begum or sob. Pt takes synthroid sleep apnea1 Pt has sleep career placement specialist ea pt uses CPAP nightly and tolerating it ok. Pt feels more energy thyroid1 Pt has autoimmun e thyroid disease Pt takes synthroid Pt denies any fatigue anxiety1 Pt has chronic a nxiety and depression P takes prozac and xanax PRn and doing ok pt denies any suicidal or homicidal thought Pt denies any crying spells chronic pain1 Pt has chronic l ow back and knee pain Pt denies any worsening pain Pt denies any loss of bladder control. pt failed NSAID pt takes norco and ultram PRn and doing ok chronic pain1 Pt has chronic l ow back and knee pain pt denies any worsening pain pt denies any loss of bladder control. Pt takes norco and ultram pt unable to tolerate NSAID GERD1 Pt has GERD Pt n eeds omeprazole refilled. Pt unable to tolerate zantac or without omeprazole due to GERD thyroid1 Pt has hypothyro idism. Her TSH was ok recently Pt denies any fatigue anxiety1 PT has chronic a nxiety and depression Pt takes prozac and xanax PRn Pt doing ok pt denies any suicidal or homicidal thought headache1 Pt has throbbing headache right temporal area 2-3 per week. Pt has nausea and photophobia with headache Pt has been taking topamax but not helping so much. Pt failed imitrex in the past Pt denies any head injury pt denies waking up at night with headache anxiety1 Pt has chronic a nxiety and depression Pt takes prozac and xanax PRn. pt denies any suicidal or homicidal thought chronic pain1 Pt has chronic l ow back and knee pain pt takes norco PRN for pain pt denies any worsening pain pt denies any loss of bladder control memory loss1 Pt has decreased memory. pt had MRi done which was normal chronic pain1 Pt has chronic l ow back and knee pain Pt denies any worsening pain. pt denies any loss of bladder control anxiety1 Pt has chronic a nxiety and depression Pt takes prozac and xanax PRn Pt denies any suicidal or homicidal thought. Pt denies any crying spells memory loss1 Pt has memory lo ss. Pt has headache Pt takes Topamax and she does not have any headache. Pt has not done MRi of brain yet. lab all normal chronic pain1 Pt has chronic l ow back and knee pain. Pt denies any worsening pain, Pt denies any loss of bladder control anxiety1 Pt has chronic a nxiety and depression. Pt takes prozac and xanax PRN. pt denies any suicidal or homicial thought. Pt denies any cyring spells memory loss Associated sympt oms include headache. Pertinent negatives include fever and gait disturbances. Additional information: Pt has been having short term memory loss for one year Pt forget a lot of names and where she is going Pt denies any headache since to topamax. sleep apnea1 Pt has sleep career placement specialist ea. Pt uses cpap nightly. Pt tolerating it ok. Pt feels more energy chronic pain Pt has chronic l ow back and knee pain. Pt takes norco and ultram PRN for pain Pt doing ok. Pt denies any wrosening pain. Pt denie sany loss of bladder control anxiety1 Pt has chronic a nxiety and depression. Pt takes prozac and xanax pRN and doing ok Pt denies any suicidal or homicidal thought. Pt denies any cyring spells. obeisy Pt barely lost a ny weight post bypass surgery. Pt still is not exercising and she still consume high calorie intake pt is 6 months post surgery chronic pain1 pt has chronic b ack and knee pain. Pt denies any worsening pain pt deneis any loss of bladder control anxiety1 pt has chronic a nxizety and depression. Pt taks prozac and xanx PRN and doing ok. Pt denie sany suicidal or homicidal thouight headache1 Pt has migraine heaeache. pt states that she only has one migraine heaache per month now with higher dose of topamax. Pt denies any head injury or waking up at night with headahe HCTZ Pt has mild HTn and lE edema. Pt takes HCT and doing ok. GERD1 Pt has GERD pt t akes omeprzole and doing ok. pt denies any abd pain chronic pain Pt has chronic l ow back and knee pain Pt takes norco and ultram. Pt has not been able to exercise due to knee pain anxiety1 Pt has chronic a nxiety and depression Pt takes prozac and axnax PRn and doing ok. pt denies any suicidal or homicidal thought headache1 Pt has been havi ng more migraine headache lately. Pt takes topamax and she still has migrine headahe 2-3 per month Pt denie sany acute headache. Pt denies any head ijury mammogram1 Pt denies any br east issue Pt had benign left diagsnotic mammo and ultrasound bypass1 Pt had gastric b ypass surgery and she has not been losing weight as much as she expected. she has not lost much weight since her last weight chronic pain Pt has chronic l ow back and knee pain Pt takes norco PRn for pain. Pt denies any wrosening pain. Pt denies any loss of bladder control anxiety1 Pt has chronic a nxiety and depression Pt takes prozac and xanax PRn and doing ok. Pt denies any suicial or homicidal thought breast1 Pt has left nirav st asymmetry Pt denies any breast nodule or any pain, Pt denies any discharge. back pain1 Pt has chronic l ow back pain. pt deneis any worsening pain pt denies any loss of bladder control anxiety1 Pt has chronic a nxiety and depression. Pt takes prozac and xanax and doing ok. Pt denies any suicidal or homicidal thought GERD1 Pt has esophagit is. Pt takes omerpzole and doing ok. Pt denies any abd pain or GERD breast1 Pt has abnormal left breast mammogram. Pt denies any breast nodule or pain PHysical Pt needs annual physical. pt has chronic anxiety and depression. Pt has chronic low back pain with some leg numbness. Pt has GERD and she takes omeprazole and she is doing ok. Pt has low thyroid and she takes synthroid. Pt takes topamax and she denies any headache. Pt denies any other complaints Pt will have bariatric surgeyr in aM GERD1 Pt has GERD with esopahgitis Pt takes omerpzole and doing ok chronic pain1 Pt has chronic b ack and knee pain. Pt denies any worsening pain. pt deneis any loss of bladder control headache1 Pt has migraine headache Pt has throbbing headache 1-2 per month Pt denies any wrosening headache. Pt denies any head injury. Pt states that imitrex does help anxiety1 Pt has chronic a nxiety and depression Pt takes prozac and xanax and doing ok Pt denies any suicidal or homicdial thought. Pt denies any cyring spells chronic pain1 Pt has chornic l ow back and knee pain. Pt has DDD on back and also arthritis on her knee. Pt does not want to see ortho. Pt takes ultram and norco PRN for pain and doing ok. Pt denies any worsening pain anxiety1 Pt has chronic a nxeity and depression Pt takes prozac and xanax PRN and doing ok. Pt denies any suicidal or homicial thought. Pt denies any crying spells. GERD1 Pt has GERD with i esophagitis. Pt takes omeprzole. Pt failed zantac. Pt needs omeprazole refill obeisty1 Pt is morbidly o bese. Pt failed lap band. Pt is in the process of getting approved for her sleeve surgery. Pt needs detailed letter from our office which was recently done. headache1 Pt has chronic h eadache. Pt has been taking topamax and she has been headache free. Pt has migraine headache. Pt denies any head injury thyoid Pt has low thyro id. Pt takes synthroid. Pt denies any chest pain pain1 Pt has chronic l ow back and knee pain Pt needs to lose weight. Pt takes norco and ultram PRN for pain. Pt canot have replacement due to weight anxiety1 Pt has chronic a nxiety and depression. Pt takes prozac and xanax and doing ok Pt deneis any suicidal or homicidal thougth Pt denies any crying spells obeisty1 Pt is morbidly o bese. Her BMI is close to 45. Pt failed diet and exercise. Pt failed lap band in the past due to hiatel hernia. Pt wants to try bypass now. Pt needs letter send to bariatric surgery sleep apnea1 Pt has sleep career placement specialist ea. Pt uses CPAP nightly and doing well anxiety1 Pt has chronic a nxiety and depression. Pt atkes prozac and xanax. Pt denies any suicdial or homicidal thought Pt denies any crying spells chronic pain Pt has chronic b ack and knee pain. Pt denies any wrosening pain Pt has DDD anxiety1 Pt has chronic a nxiety and depression. Pt takes prozac and xanax and doing ok. Pt denies any suicidal or homicidal thought. Pt denies any crying spells back pain1 Pt has chornic l ow back and knee pain. Pt denies any worsening pain Pt takes ultram and norco for pain cotnrol Pt denies any loss of bladder control HTN Pt takes HCTZ an d her BP is well controlled and she also does not have any edema. headache1 Pt has chronic m igraine headache and she takes topamax and she has not had any headache since. Pt has not need to use imitrex at all. headache1 Pt had headache x 3 last month. Pt staes that headache is throbbing in nature with nasuea and photophobia. Pt states that imitrex helped Pt denies waking up at night with headache Pt denies any head injury obesity1 Pt has gained so me weight. Pt failed ballon procedure. Pt wants to try phentermine. chronic pain1 Pt has chronic l ow back pain and ankle pain. Pt denies any loss of bowel or bladder control. Pt denies any suicidal or homicidal thought anxiety1 Pt has chronic a nxiety and depression. Pt takes prozac and xanax. Pt denies any suicidal or homicidal thought. Pt deneis any crying spells anxiety1 Pt has chronic a nxiety and depression. Pt takes prozac and xanax and doing ok Pt denies any suicidal or homicidal thought. Pt denies any cyring spells back pain1 Pt has chronic l ow back pain and knee pain Pt denies any loss of bladder control. pt denies any worsening pain headache1 Pt c/o migraine headache recently. Pt denies any head injury. Pt states that she has been having migraine about once per month. Pt c.o photophobia, nausea along with headache. Pt denies any worsening headache. GERD1 Pt has intermitt ent GERD. Pt has been taking omeprzole on and off back pain1 Pt has chronic l ow back and knee pain. Pt denies any worsening pain Pt denies any loss of bowel or bladder control. pt has chronic knee pain anxiety1 Pt has chronic a nxiety and depression. Pt takes prozac and xanax and doing ok Pt denies any suicidal or homicidal thought Pt denies any crying spells anxiety1 Pt has chronic a nxiety an ddepression .pt takes prozac and xanax and doing ok. Pt denies any sucidal or homicidal thought Pt denies any crying spells back pain1 Pt has chronic l ow back and knee pain. Pt takes ultram, norco and flexeril PRN for pain. Pt denies any worsening pain. Pt denies any loss of jovon or bladder control. HTN Pt has mild HTN and LE edema. Pt takes HCTZ and doing ok Pt denies any swelling. Her BP is slighlty high today GERD1 Pt has esophagit is. Pt states that she stopped omeprazole and she does not have any symptmos. Pt denies any abd pain Sick Pt feelss sick. Pt c/o sinus congestion and nasal drainage with sore throat. Pt c/o couging. Pt has been sick for 5 days. Pt failed OTC meds anxiety1 Pt has chronic a nxiety and depression. Pt takes prozac 40 mg daily and xanax and doing ok. Pt denies any suicidal or homicdial thought .Pt denies any crying spells chronic pain1 Pt has chronic l ow back and knee pain. Pt takes neurontin and norco and ultram for pain and donig ok. Pt denies any worsening pain. Pt denies any loss of bowel or bladder control GERD1 Pt has GERD and she doing ok with omeprzole. Pt still has not done the barium enema study. Pt denies any GI issue chronic pain Pt has chornic b ack and knee pain. Pt denies any worsening kali. Pt denies any loss of jovon or bladder control. Pt has 7/10 pain anxiety1 Pt has chronic a nxiety and depression. Her hubby just recently. Pt has been having crying spells Pt denies any suicidal or homicidal thought sleep apnea1 Pt has sleep career placement specialist ea Pt has been using CPAP for years. Pt uses CPAP nightly for at least 6 hours. Pt doing ok. Pt denies any snoring or fagigue chronic pain1 Pt has chronic b ack and knee pain. Pt denies any worsening pain Pt takes ultram and norco for pain and doing ok. anxiety1 Pt has chronic a nxiety and depression. P takes prozac and xanax and doing ok Pt denies any suicidsal or homcidial thought low D Pt has bordelirn e vitami D. Pt denie sany history of fx. Pt does not have osteopenia water Pt feels overall bloated. Pt has been doubling up HCTZ. Pt feels better. It does make her urinate slihglty more Physical Pt needs annual physical. pt has chornic anxeity and depression. Pt takes prozac adn xanax and doing ok Pt denies any suiciadl or homcidial thought. Pt has gERD with esophagitis and she takes omeprazole daily Pt denies any symptoms Pt has low thyroid and she takes synthroid. Pt denies any chest pain or headache Pt also has chornic back and knee. pain. Pt deneis any memory loss now. Pt had 30/30 min mental eaxmPt denies any other complaints memory loss1 Pt has memeory l oss during the last several months. Pt states that she has anterogrde memory losss. Pt forget numbers and a lot of small things. Pt states that hse has strong family history of alzehemier. disease. No headache chronic pain Pt has chronic b ack and knee pain Pt takes norco and ultram PRN for pain and doing ok Pt denies any worsening pain anxiety1 Pt has chronic a nxiety and depression Pt takes prozac and axanax and doign ok Pt denies any suicidal or homicidal thought HTN Pt has mild HTn today Pt denies any chest pain or headache hypothyroidism1 Pt takes synthro id. Pt denies any chest pain or fatigue or weight gain back apin Pt has chronic l ow back and knee pain. Pt denies any worsening pain. Pt usually takes norco and ultram PRN for pain. Pt wants to take 3 ultram per day instead of twice. SHe usually takes ultram and norco together which helps her pain better HTN Pt takes HCTZ fo r mild HTn and LE edema and she is doing ok Her BP is stable Anxiety1 Pt has chronic a nxeity and depression. Pt takes prozac and xanax. Pt denies any suicidal or homicidal thought . Pt denies any crying spells anxiety1 Pt has chronic a nxiety and depression. Pt takes prozac and xanax. Pt denies any suicidal or homicidal thought. Pt denies anyc rying spells chronic pain1 Pt has chronic b ack and knee pain. Pt takes ultram and norco for pain. Pt denies any worsening pain. Pt denies any loss of bowel or bladder control GERD1 Pt has GERD with esophagitis. Pt is on omeprazole. Pt is doing ok. Pt denies any abd pain. Pt will have colonoscopy next week Edema1 Pt has mild LE e phong. Pt has been taking HCTZ and it is helping her. Pt has been cutting down low salt diet and she stopped eating salted popcorn at night. chornic pain Pt has chronic b ack and knee pain. Pt takes neurontin and norco for pain Pt denies any worsening pain anxiety1 Pt has chronic a nxiety and depression. Pt takes prozac and xanax and doing ok. Pt denies any suicidal thought or homicidal thought GERD1 Pt has GERD Pt h as esophagitis. pt has been taking omeprazole and doing ok. Pt denies any symptoms. Pt does not want repeat EGD now water retention Pt notices swell ing around finger and leg for sevearl weeks. Pt wants to try water pill. GERD1 Pt has esophagit is with GERD. Pt takes omeprazole. Pt has colonsocopy scheduled soon. Pt denies any symptoms anxiety1 pt has chronic a niety and depression. Pt takes prozac and xanax. Pt denies any suicidal or homicdial thought. pt denies any crying spells. chronic pain Pt has chronic b ack and knee pain. Pt takes norco for pain Pt denies any worsening pain Pt denies any loss of bowel or bladder control GERD1 Pt has GERd with esophagitis. Pt takes omeprzole 20 mg daily and doing ok. Pt has appointment with GI next week for colonsocopy chronic pain1 Pt has chronic l ow back and knee pain Pt denies any worsening pain. Pt denies any loss ofb owel or bladder control anxiety1 Pt has chronic a nxiety an ddepression. Pt takes prozac and axnax and doing ok. Pt denies any suicidal thought chronic pain1 Pt has chronic b ack and knee pain Pt denies any worsening pain pt denies any loss of bowel or bladder control GERD1 Pt has GERD. Pt states that she does not have gERD daily and she takes omerpazole daily Pt recently had her lap band removed due to the fact that it caused hiatel hernia PT feels much better now. Pt denies any nausea, vomiting, diarrhea. Pt also had hiatel hernia fixed recently. Pt denies any abd pain now shoulder pain Location: should er. Additional information: Pt c/o left shoulder pain after food at night only for the past two weeks, Pt notices the pain after lap surgery two weeks ago. Pt denies any injury. Pt c/o sharp pain left shoulder area. Pt denies any chest pain. Pt had not had any shoulder begum for 3 days. anxiety1 Pt has chronic a nxiety and depression Pt takes prozac and xanax and doing ok PT denies any suicidal or homicdial thought chronic pain1 Pt has chronic b ack and knee pain. Pt denie any loss of bowel or bladder control. Pt denies any worsening pain anxiety1 Pt has chronic a nxiety and depression . Pt takes prozac and xanax Pt denie sany suicidal thought. Pt denies any crying spells bone density1 Pt had normal alonso ne density and normal mammogram recently band surgery1 Pt had her band removed due to unable to tolerating it. Pt had EGD and Ct which showed hiatel hernia Pt plan to have hernia repaired .Pt still has difficulty eating. Pt feels nauea with food. Pt denies any abd pain GERD1 Pt still has bee n taking omerpzole 20 mg daily instead of 40 mg. Pt denies any GERD symptoms. Pt has difficulty keeping food down due to the band. anxiety1 Pt has chronic a nxiety and depression. Pt takes prozac and xanax and doing ok. Pt denies any sucidal thought. Pt denies any feeling of hopelessness chronic pain1 Pt has chronic l ow back and knee pain. Pt denies any loss of bowel or bladder control. Pt denies any worsenign pain. Pt takes norco pain and doing ok vomiting Associated sympt oms include back pain, heartburn, nausea, vomiting and weight loss. Pertinent negatives include blood in stool, constipation, diarrhea, dyspnea, fever, hematuria, rash and vaginal discharge.Additional information:Pt states that she has difficulty keeping food down due to the band. Pt got her band adjusted and she still unable to keep food down. Pt does not want to lose the band yet. GERD1 Pt has GERD. pt takes omeprazole and doing ok. Pt denie any nauea, vomiting. Pt doing ok chronic pain1 Pt has chronic b ack and knee pain. pt has appointment with ortho soon. Pt denies any worsenign pain. Pt deniesany loss of bowel or bladder control anxiety1 Pt has chronic a nxiety and depression. Pt takes prozac and xanax. Pt denies any suicidal thought or feeling of hopelessness. gERD1 Pt has esophagit is. Pt has GERD Pt recently got her band adjusted and she has been having worsenign GERD symptoms back pain1 Pt has chronic l ow back pain and knee pain. Pt denies any wosrening pain Pt denies any loss of bowel or bladder control. Pt has not made appointment with ortho yet for knee pain Anxeity1 Pt has chronic a nxiety and depression. Pt takes prozac and xanax. Pt denies any suicidal thought Pt denies any crying spells Pt doing ok GERD chronic pain Pt has chronic k nee, back and ankle pain. Pt had history of ankle surgery and she has arthritis right knee. Pt has low back pain. Pt denies any loss of bowel or bladder control anxiety The patient pres ents with anxious/fearful thoughts but denies fatigue. The patient denies any vomiting. Additional information: Pt has chronic anxiety and depression. Pt denies any suicidal thought. Pt takes prozac and xanax flory doing ok. GERd Associated sympt oms include back pain. Pertinent negatives include constipation, diarrhea, dyspnea, fever, hematuria, rash, vaginal discharge and vomiting.Additional information:Pt doing ok with omerpzole. Pt has EGD and colonsocpy soon. chronic apin Pt has chronic b ack and knee pain. Pt takes pain meds. Pt denies any loss of bowel or bladder control. Pt denies any worsening pain. Pt has pain daily anxiety The patient pres ents with anxious/fearful thoughts but denies fatigue. The patient denies any vomiting and weight gain. Additional information: Pt has chronci anxiety and depression. Pt takes prozac and xanax. Pt states that prozac is helping her mood. Her just diagnosed with pancreatic cancer. Pt denies any suicidal thought. hypothyroidism Pt takes synthro id. Pt denies any chest pain or palpitation GERD Associated sympt oms include back pain and heartburn. Pertinent negatives include blood in stool, constipation, diarrhea, dyspnea, fever, hematuria, rash, vaginal discharge, vomiting, weight gain and weight loss. GERD Associated sympt oms include back pain. Pertinent negatives include blood in stool, constipation, diarrhea, dyspnea, fever, heartburn, hematuria, nausea, rash, vaginal discharge, vomiting and weight gain.Additional information:Pt takes omerpzoled for GERD. pt states that abd pain and n[place], vomiting resolved after GI surgeon deflated stomach pouch. Pt has GERD and she takes omerpazole. UTI Pertinent negati ves include abdominal pain, dysuria, fatigue, fever, hematuria, nausea, rash, vaginal discharge or vomiting. Additional information: Pt took macrobid and she notices she urinate much better. Pt did not realize that he had UTI last MO. UTI Pt states that s he feels urinating much easier now since taking macrobid vitamin D Pt has low vitam in D PHysical Pt needs annual physical. Pt states that she has been having vomiting for several days. Pt states that she has not been able to eat anything due to vomiting. Pt had hiatel henia surgery and lap band surgery recently. Pt also has chornic pain and anxeity. Pt is taking omeprzole and GERD seems better. Pt denies any abd pain. Pt also notices dark stool x once yesterday. Pt has not vomited today or any blood or dark stool. depressed Pt feels some de pression lately Pt has chronic anxiety. Pt takes xanax. Pt denies any suicdial or homicidal thought. chronic pain Pt has chornic b ack and knee pain. Pt states that her pain is getting worse. GERD Additional infor mation:Pt has been having heartburn. Pt had hiatel hernia surgery recently durign bariatric surgery. Pt has to take ivory freuqenlty and PPIs. Instructions Date Instruction Additional Infor mation Special diet education Related t o Body mass index (BMI) 37.0-37.9, adult Special diet education Related t o Body mass index (BMI) 36.0-36.9, adult Increase physical activity Relat ed to Generalized anxiety disorder Weight management Related to Gen eralized anxiety disorder Special diet education Related t o Body mass index (BMI) 36.0-36.9, adult Perform monthly self breast examinations. Related to Encntr for general adult medical exam w/o abnormal findings Increase activity. Related to En cntr for general adult medical exam w/o abnormal findings Weight management Related to Gen eralized anxiety disorder Special diet education Related t o Body mass index (BMI) 36.0-36.9, adult Increase physical activity Relat ed to Generalized anxiety disorder Special diet education Related t o Body mass index (BMI) 37.0-37.9, adult Avoid provocative fo ods: citrus, alcohol, coffee, chocolate, mints. Related to GERD w/o esophagitis Eat smaller meals, n o eating three hours prior to bedtime. Related to GERD w/o esophagitis Elevate head of bed prior to sle ep. Related to GERD w/o esophagitis Prescribed dietary intake Relate d to Body mass index (BMI) 37.0-37.9, adult Weight management Related to Gen eralized anxiety disorder Weight management Related to Aty pical facial pain Special diet education Related t o Body mass index (BMI) 38.0-38.9, adult Increase physical activity Relat ed to Atypical facial pain Special diet education Related t o Body mass index (BMI) 38.0-38.9, adult Increase physical activity Relat ed to Urinary tract infection Special diet education Related t o Body mass index (BMI) 38.0-38.9, adult Avoid provocative fo ods: citrus, alcohol, coffee, chocolate, mints. Related to GERD w/o esophagitis Eat smaller meals, n o eating three hours prior to bedtime. Related to GERD w/o esophagitis Elevate head of bed prior to sle ep. Related to GERD w/o esophagitis Special diet education Related t o Body mass index (BMI) 38.0-38.9, adult Increase physical activity Relat ed to Chronic pain syndrome Weight management Related to Chr onic pain syndrome Increase physical activity Relat ed to Chronic pain syndrome Weight management Related to Chr onic pain syndrome Special diet education Related t o Body mass index (BMI) 38.0-38.9, adult Special diet education Related t o Body mass index (BMI) 38.0-38.9, adult Special diet education Related t o Body mass index (BMI) 38.0-38.9, adult Increase physical activity Relat ed to Generalized anxiety disorder Weight management Related to Gen eralized anxiety disorder Special diet education Related t o Body mass index (BMI) 38.0-38.9, adult Special diet education Related t o Body mass index (BMI) 39.0-39.9, adult Special diet education Related t o Body mass index (BMI) 39.0-39.9, adult Increase physical activity Relat ed to Generalized anxiety disorder Weight management Related to Gen eralized anxiety disorder Prescribed dietary intake Relate d to Body mass index (BMI) 38.0-38.9, adult Perform monthly self breast examinations. Related to Encntr for general adult medical exam w/o abnormal findings Quit smoking. Related to Encnt r for general adult medical exam w/o abnormal findings Increase activity. Related to En cntr for general adult medical exam w/o abnormal findings Prescribed dietary intake Relate d to Body mass index (BMI) 39.0-39.9, adult Increase physical activity Relat ed to Hypothyroidism Quit smoking Related to Hypot hyroidism Weight management Related to Hyp othyroidism Quit smoking Related to Heada camelia Weight management Related to Hea dache Special diet education Related t o Body mass index (BMI) 39.0-39.9, adult Increase physical activity Relat ed to Headache Prescribed dietary intake Relate d to Body mass index (BMI) 40.0-44.9, adult Increase physical activity Relat ed to Chronic pain syndrome Weight management Related to Chr onic pain syndrome Special diet education Related t o Body mass index (BMI) 40.0-44.9, adult Increase physical activity Relat ed to Memory loss Weight management Related to Mem ory loss Prescribed Diet Educ ation/Lifestyle Education Regarding Diet Related to Dietary Surveillance and Counseling Prescribed Activity and Exercise Education Related to Dietary Surveillance and Counseling Prescribed Activity and Exercise Education Related to Dietary Surveillance and Counseling Prescribed Diet Educ ation/Lifestyle Education Regarding Diet Related to Dietary Surveillance and Counseling Increase physical activity Relat ed to Chronic pain syndrome Weight management Related to Chr onic pain syndrome Prescribed Activity and Exercise Education Related to Dietary Surveillance and Counseling Prescribed Diet Educ ation/Lifestyle Education Regarding Diet Related to Dietary Surveillance and Counseling Increase physical activity Relat ed to Headache Weight management Related to Hea dache Prescribed Activity and Exercise Education Related to Dietary Surveillance and Counseling Prescribed Diet Educ ation/Lifestyle Education Regarding Diet Related to Dietary Surveillance and Counseling Increase physical activity Relat ed to Chronic pain syndrome Weight management Related to Chr onic pain syndrome Prescribed Activity and Exercise Education Related to Dietary Surveillance and Counseling Prescribed Diet Educ ation/Lifestyle Education Regarding Diet Related to Dietary Surveillance and Counseling Increase physical activity Relat ed to Generalized anxiety disorder Quit smoking Related to Gener alized anxiety disorder Weight management Related to Gen eralized anxiety disorder Prescribed Activity and Exercise Education Related to Dietary Surveillance and Counseling Prescribed Diet Educ ation/Lifestyle Education Regarding Diet Related to Dietary Surveillance and Counseling Avoid provocative fo ods: citrus, alcohol, coffee, chocolate, mints Related to GERD w/ esophagitis Eat smaller meals, n o eating three hours prior to bedtime Related to GERD w/ esophagitis Elevate head of bed prior to sle ep Related to GERD w/ esophagitis Prescribed Activity and Exercise Education Related to Dietary Surveillance and Counseling Prescribed Diet Educ ation/Lifestyle Education Regarding Diet Related to Dietary Surveillance and Counseling Increase physical activity Relat ed to Encounter for general adult medical exam w abnormal findings Weight management Related to Enc ounter for general adult medical exam w abnormal findings Increase physical activity Relat ed to Generalized Anxiety Disorder Weight management Related to Gen eralized Anxiety Disorder Prescribed Activity and Exercise Education Related to Dietary Surveillance and Counseling Prescribed Diet Educ ation/Lifestyle Education Regarding Diet Related to Dietary Surveillance and Counseling Prescribed Activity and Exercise Education Related to Dietary Surveillance and Counseling Prescribed Diet Educ ation/Lifestyle Education Regarding Diet Related to Dietary Surveillance and Counseling Prescribed Diet Educ ation/Lifestyle Education Regarding Diet Related to Dietary Surveillance and Counseling Prescribed Activity and Exercise Education Related to Dietary Surveillance and Counseling Prescribed Diet Educ ation/Lifestyle Education Regarding Diet Related to Dietary Surveillance and Counseling Prescribed Activity and Exercise Education Related to Dietary Surveillance and Counseling Prescribed Activity and Exercise Education Related to Dietary Surveillance and Counseling Prescribed Diet Educ ation/Lifestyle Education Regarding Diet Related to Dietary Surveillance and Counseling Prescribed Diet Educ ation/Lifestyle Education Regarding Diet Related to Dietary Surveillance and Counseling Prescribed Activity and Exercise Education Related to Dietary Surveillance and Counseling Prescribed Diet Educ ation/Lifestyle Education Regarding Diet Related to Dietary Surveillance and Counseling Prescribed Activity and Exercise Education Related to Dietary Surveillance and Counseling Prescribed Activity and Exercise Education Related to Dietary Surveillance and Counseling Prescribed Diet Educ ation/Lifestyle Education Regarding Diet Related to Dietary Surveillance and Counseling Prescribed Activity and Exercise Education Related to Dietary Surveillance and Counseling Prescribed Diet Educ ation/Lifestyle Education Regarding Diet Related to Dietary Surveillance and Counseling Prescribed Diet Educ ation/Lifestyle Education Regarding Diet Related to Dietary Surveillance and Counseling Prescribed Activity and Exercise Education Related to Dietary Surveillance and Counseling Prescribed Activity and Exercise Education Related to Dietary Surveillance and Counseling Prescribed Diet Educ ation/Lifestyle Education Regarding Diet Related to Dietary Surveillance and Counseling Prescribed Activity and Exercise Education Related to Dietary Surveillance and Counseling Prescribed Diet Educ ation/Lifestyle Education Regarding Diet Related to Dietary Surveillance and Counseling Prescribed Diet Educ ation/Lifestyle Education Regarding Diet Related to Dietary Surveillance and Counseling Prescribed Activity and Exercise Education Related to Dietary Surveillance and Counseling Prescribed Activity and Exercise Education Related to Dietary Surveillance and Counseling Prescribed Diet Educ ation/Lifestyle Education Regarding Diet Related to Dietary Surveillance and Counseling Prescribed Activity and Exercise Education Related to Dietary Surveillance and Counseling Prescribed Diet Educ ation/Lifestyle Education Regarding Diet Related to Dietary Surveillance and Counseling Prescribed Diet Educ ation/Lifestyle Education Regarding Diet Related to Dietary Surveillance and Counseling Prescribed Activity and Exercise Education Related to Dietary Surveillance and Counseling Prescribed Activity and Exercise Education Related to Dietary Surveillance and Counseling Prescribed Diet Educ ation/Lifestyle Education Regarding Diet Related to Dietary Surveillance and Counseling Prescribed Activity and Exercise Education Related to Dietary Surveillance and Counseling Prescribed Diet Educ ation/Lifestyle Education Regarding Diet Related to Dietary Surveillance and Counseling Prescribed Activity and Exercise Education Related to Dietary Surveillance and Counseling Prescribed Diet Educ ation/Lifestyle Education Regarding Diet Related to Dietary Surveillance and Counseling Prescribed Diet Educ ation/Lifestyle Education Regarding Diet Related to Dietary Surveillance and Counseling Prescribed Activity and Exercise Education Related to Dietary Surveillance and Counseling Prescribed Activity and Exercise Education Related to Dietary Surveillance and Counseling Prescribed Diet Educ ation/Lifestyle Education Regarding Diet Related to Dietary Surveillance and Counseling Prescribed Diet Educ ation/Lifestyle Education Regarding Diet Related to Dietary Surveillance and Counseling Prescribed Activity and Exercise Education Related to Dietary Surveillance and Counseling Prescribed Diet Educ ation/Lifestyle Education Regarding Diet Related to Dietary Surveillance and Counseling Prescribed Activity and Exercise Education Related to Dietary Surveillance and Counseling Prescribed Activity and Exercise Education Related to Dietary Surveillance and Counseling Prescribed Diet Educ ation/Lifestyle Education Regarding Diet Related to Dietary Surveillance and Counseling Prescribed Activity and Exercise Education Related to Dietary Surveillance and Counseling Prescribed Diet Educ ation/Lifestyle Education Regarding Diet Related to Dietary Surveillance and Counseling Prescribed Activity and Exercise Education Related to Dietary Surveillance and Counseling Prescribed Diet Educ ation/Lifestyle Education Regarding Diet Related to Dietary Surveillance and Counseling Prescribed Activity and Exercise Education Related to Dietary Surveillance and Counseling Prescribed Diet Educ ation/Lifestyle Education Regarding Diet Related to Dietary Surveillance and Counseling Prescribed Diet Educ ation/Lifestyle Education Regarding Diet Related to Dietary Surveillance and Counseling Prescribed Activity and Exercise Education Related to Dietary Surveillance and Counseling Prescribed activity/ exercise education Related to Dietary surveillance and counseling Special diet education Related t o Dietary surveillance and counseling Physical activity counseling Rel ated to Dietary surveillance counseling Decrease caloric intake Related to Dietary surveillance counseling Physical activity counseling Rel ated to Dietary surveillance counseling Decrease caloric intake Related to Dietary surveillance counseling Physical activity counseling Rel ated to Dietary surveillance counseling Decrease caloric intake Related to Dietary surveillance counseling Physical activity counseling Rel ated to Dietary surveillance counseling Decrease caloric intake Related to Dietary surveillance counseling Physical activity counseling Rel ated to Dietary surveillance counseling Decrease caloric intake Related to Dietary surveillance counseling Dietary counseling Related to Mo rbid obesity, BMI 40 or more Decrease caloric intake Related to Morbid obesity, BMI 40 or more Decrease caloric intake Related to Dietary surveillance counseling Dietary counseling Related to Di etary surveillance counseling Dietary counseling Related to Di etary surveillance counseling Decrease caloric intake Related to Dietary surveillance counseling Dietary counseling Related to Di etary surveillance counseling Decrease caloric intake Related to Dietary surveillance counseling Decrease caloric intake Related to Dietary surveillance counseling Dietary counseling Related to Di etary surveillance counseling Dietary counseling Related to Di etary surveillance counseling Decrease caloric intake Related to Dietary surveillance counseling Dietary counseling Related to Di etary surveillance counseling Decrease caloric intake Related to Dietary surveillance counseling Dietary counseling Related to Di etary surveillance counseling Decrease caloric intake Related to Dietary surveillance counseling Dietary counseling Related to Di etary surveillance counseling Decrease caloric intake Related to Dietary surveillance counseling Dietary counseling Related to Di etary surveillance counseling Decrease caloric intake Related to Dietary surveillance counseling Dietary counseling Related to Di etary surveillance counseling Decrease caloric intake Related to Dietary surveillance counseling Dietary counseling Related to Di etary surveillance counseling Decrease caloric intake Related to Dietary surveillance counseling Dietary counseling Related to Di etary surveillance counseling Decrease caloric intake Related to Dietary surveillance counseling Dietary counseling Related to Di etary surveillance counseling Decrease caloric intake Related to Dietary surveillance counseling Dietary counseling Related to Di etary surveillance counseling Decrease caloric intake Related to Dietary surveillance counseling Dietary counseling Related to Di etary surveillance counseling Decrease caloric intake Related to Dietary surveillance counseling Dietary counseling Related to Di etary surveillance counseling Decrease caloric intake Related to Dietary surveillance counseling Decrease caloric intake Related to Dietary surveillance counseling Dietary counseling Related to Di etary surveillance counseling Dietary counseling Related to Di etary surveillance counseling Decrease caloric intake Related to Dietary surveillance counseling Dietary counseling Related to Di etary surveillance counseling Decrease caloric intake Related to Dietary surveillance counseling Dietary counseling Related to Di etary surveillance counseling Decrease caloric intake Related to Dietary surveillance counseling Decrease caloric intake Related to Dietary surveillance counseling Dietary counseling Related to Di etary surveillance counseling Dietary counseling Related to Di etary surveillance counseling Decrease caloric intake Related to Dietary surveillance counseling Dietary counseling Related to Di etary surveillance counseling Decrease caloric intake Related to Dietary surveillance counseling Assessments Type Assessment Date assessment Migraine with aura, not intractable, without status migrainosus assessment Chronic pain syndrome assessment Generalized anxiety disorder Aug assessment Tobacco use assessment Upper abdominal pain Mental Status Date Cognitive Assessment Orientation - [place] ed to time, place, person, situation.
--- OUTSIDE RECORDS SUMMARY | 2024-09-18 16:53 | XMS_ITS | Clinical Summary ---
Author Organization [facility] Address [address] [place] [address] Care Team Providers Care Pin Pusher Name Role Phone Odilon Briones MD Primary Care Provider + [phone] Allergies Active Allergy Reactions Criticality Noted Date [...] 08/10/2020 Assessment & Plan (08/10/2020 1:58 PM HUMAN SERVICE SPECIALIST): Patient has a longstanding history of recurrent [...] Type Department Care Team Description 07/25/[address] [facility] Advanced Medicine ([facility]) - [facility] Minimally Invasive Surgery [address] [facility] Advanced Medicine [address]th Floor, [place] [address] Negro Torres NP Medical Question/Miscellaneous [...] on file Legal Sex Female 4:11 AM HUMAN SERVICE SPECIALIST Gender Identity Not on file Sexual Orientation [...] 9, 04/27/2017, 05/11/2016, Additional history exists Insurance [facility] Address: [facility] [address] [place] [address] MEDICARE [facility] T MEDICARE GOLD IDPA [facility] MEDICARE [facility] IDPA Advance Directives For more information, please contact: [phone] * Full Code (Latest Code Status on File) Date Activated Date Inactivated Comments 05/17/2024 12:28 PM 05/17/2024 6:38 PM Care Teams Pin Pusher Relationship Specialty Start Date End Date Odilon Briones MD PCP - General 11/07/16
--- OUTSIDE RECORDS SUMMARY | 2024-09-18 16:53 | XMS_ITS | Continuity of Care Document ---
Author Organization [facility] Address [address] [place] [address] [address] [place] [address] Phone Care Team Providers Care Veterinary Pharmacologist Name Role Phone Mery Mabry Unavailable Unavailable Procedures Procedure Date Removal Of Skin Lesion Advance Directives Directive Yes / No Effective Date File Name No Information Encounters Encounter Description Practice Location Reason(s) For Visit Diagnoses Date Provider Providers Copied on Encounter [facility], [id number] [place] [address] [address], [place], [place], [id number], [place] tel:[phone] [facility] No Information [phone] Clotilde Ordonez. [address] , [address], [place], [address], [place]. tel:[phone] Referring Provider: Rosana Ortiz OD, [address] [facility], [place], [address]. tel:[phone] Family History Family Member Type Diagnosis Age At Onset No Information Payers Payer name Insurance type Covered constitution party ID Authoriza tion(s) Medicaid [facility] [id number] Social History Type Description Quantity Date Captured Comments Sex Female Smoking Status No Information Chief Complaint And Reason For Visit No Information Reason For Referral Reason For Referral No Information History Of Present Illness Encounter Date Complaint History Of Prese nt Illness No Information Functional Status Date Functional Assessmen t No Information Instructions Date Instruction Additional Infor mation No Information Assessments Type Assessment Date No Information Patient Care Teams Name Effective Dates (start - stop) Status Members No Information
== END 2024-09-18 15:04 | disposition home or self-care (01) ==
LOC: ANHIMG 15:06
PROVIDERS: PCP Emergency Medicine; Visit Provider Emergency Medicine
DX: Z12.31 Encounter for screening mammogram for malignant neoplasm of breast (principal)
CPT/HCPCS: 77063; 77067

== ENCOUNTER 2024-11-27 13:59 | Outpatient (CLI) | payer MEDICARE, MEDICAID, SELFPAY ==
--- NOTE | ~2024-11-27 | DEXA_ITS ---
Bone Density Report Name: APRIL RODRIGUEZ Age: 59 Sex: Female Ethnicity: White Date of : 1965 Indication: osteopenia; parental hip fracture; height loss; prior fracture; hysterectomy; Referring Provider: MARYAM MOLINA Study: Bone densitometry was performed. Exam Date: November 27, 2024 Accession number: [id number] Bone Density: Region BMD T-score Z-score Classification AP Spine(L1-L4) 0.832 -2.0 -0.4 Osteopenia Femoral Neck (Left) 0.648 -1.8 -0.5 Osteopenia Total Hip (Left) 0.806 -1.1 -0.1 Osteopenia Femoral Neck (Right) 0.600 -2.2 -0.9 Osteopenia Total Hip (Right) 0.745 -1.6 -0.6 Osteopenia Total Hip Mean 0.775 -1.4 -0.4 Osteopenia World Health Organization criteria for BMD impression classify patients as: Normal (T-score at or above -1.0), Osteopenia (T-score between -1.0 and -2.5), or Osteoporosis (T-score at or below -2.5). 10-year Fracture Risk(1): Major Osteoporotic Fracture 32% Hip Fracture 2.8% Reported Risk Factors: [place] (), Neck BMD=0.600, BMI=26.8, previous fracture, parental fracture (1) FRAX(R) Version 3.08. Fracture probability calculated for an untreated patient. Fracture probability may be lower if the patient has received treatment. Previous Exams: Region Exam Age BMD T-score BMD Change BMD Change Date g/cm2 vs Baseline vs Previous AP Spine (L1-L4) 11/27/2024 59 0.832 -2.0 -0.074 (-8.2%) 0.042 (5.4%)* 11/02/2022 57 0.790 -2.3 -0.116 (-12.8% -0.116 (-12.8% 12/26/2018 53 0.906 -1.3 Total Hip(Left) 11/27/2024 59 0.806 -1.1 -0.168 (-17.2% 0.023 (2.9%) 11/02/2022 57 0.783 -1.3 -0.191 (-19.6% -0.136 (-14.8% 12/26/2018 53 0.919 -0.2 -0.055 (-5.6%) -0.055 (-5.6%) 06/24/2015 50 0.973 0.3 Total Hip(Right) 11/27/2024 59 0.745 -1.6 -0.240 (-24.4% 0.039 (5.6%)* 11/02/2022 57 0.706 -1.9 -0.279 (-28.3% -0.201 (-22.2% 12/26/2018 53 0.907 -0.3 -0.078 (-8.0%) -0.078 (-8.0%) 06/24/2015 50 0.985 0.4 *Denotes significance at 95% confidence level, LSC for AP Spine = 0.022 g/cm2, LSC for Total Hip = 0.027 g/cm2 Clinical Information Provided by Patient: Has had a low trauma fracture Parent has had a hip fracture Has the following medical conditions: Hysterectomy Patient maximum height was 67 Menopause Age: 34 No regular weight bearing exercise Does not regularly consume dairy products Drinks caffeinated beverages Onset of menses at age 10 Number of children 1 Impression: The patient has low bone mass, based on the Right Femoral Neck T-score. The patient has an estimated ten-year risk of hip fracture of 2.8% and an estimated ten-year risk of major fracture of 32%, based on the WHO FRAX algorithm. The patient has risk factors, including: parental hip fracture, previous fracture. No significant bone loss was observed. Discussion: BONE DENSITY IS LOW AT ONE OR MORE SKELETAL SITES. THE PATIENT'S BMD AND CLINICAL RISK FACTORS CONTRIBUTE TO THIS PATIENT'S INCREASED RISK OF FRACTURE. This patient's lowest T-score is low at one or more skeletal sites. It meets the World Health Organization's (WHO) criteria for “low bone mass” (T-score between -1.0 and -2.5). The patient's 10-year risk of a major osteoporotic fracture as calculated by FRAX exceeds the threshold where pharmacological therapy is recommended by the National Osteoporosis Foundation (NOF). However, all treatment decisions require clinical judgment and consideration of individual patient factors, including patient preferences, comorbidities, previous drug use, risk factors not captured in the FRAX model (e.g., frailty, falls, vitamin D deficiency, increased bone turnover, interval significant decline in bone density) and possible under or overestimation of fracture risk by FRAX. The patient should follow a healthful lifestyle (good nutrition with adequate calcium and vitamin D, and appropriate weight-bearing exercise). Follow-Up: Consider a repeat BMD and Vertebral Fracture Assessment (VFA) exam in 2 years or sooner if medically necessary, to reassess this patient's status. Reported by: CHAPITO on 11/27/2024 2:41:00 PM. Reviewed, dictated and finalized at location A.
--- OUTSIDE RECORDS SUMMARY | 2024-11-27 14:14 | XMS_ITS | Referral Summary ---
Author Organization [facility] Address [address] [place] [address] Care Team Providers Care Cigarette Packer Name Role Phone Odilon Briones MD Primary Care Provider + [phone] Allergies Active Allergy Reactions Criticality Noted Date [...] 08/10/2020 Assessment & Plan (08/10/2020 1:58 PM OUTDOOR ADVENTURE GUIDES): Patient has a longstanding history of recurrent [...] on file Legal Sex Female 4:11 AM OUTDOOR ADVENTURE GUIDES Gender Identity Not on file Sexual Orientation [...] Plan of Treatment Not on file Insurance [facility] Member Subscriber Plan / Payer (Ef fective 2016-Present) Name:Ange Macdonald Relation to Subscriber:Self Name:Ange Macdonald Payer ID:[id number] (NAIC) Group ID:Not on file Type:MEDICAID RISK OTHER Address: [address] [id number] MEDICARE IDPA [employer] MEDICARE GOLD IDPA [employer] MEDICARE [place]OLD [place] Advance Directives For more information, please contact: [phone] * Full Code (Latest Code Status on File) Date Activated Date Inactivated Comments 05/17/2024 12:28 PM 05/17/2024 6:38 PM Care Teams Cigarette Packer Relationship Specialty Start Date End Date Odilon Briones MD PCP - General 11/07/16
--- OUTSIDE RECORDS SUMMARY | 2024-11-27 14:14 | XMS_ITS | Clinical Summary ---
Author Organization [facility] Address [address] [place] [address] Care Team Providers Care Pricing Analyst Name Role Phone Odilon Briones MD Primary Care Provider + [phone] Allergies Active Allergy Reactions Criticality Noted Date [...] 08/10/2020 Assessment & Plan (08/10/2020 1:58 PM ECCLESIASTICAL WORKER): Patient has a longstanding history of recurrent [...] time for reassessment on her adjusted dosing. Surgical History Surgery Date Site/Laterality Comments TUBAL [...] on file Legal Sex Female 4:11 AM ECCLESIASTICAL WORKER Gender Identity Not on file Sexual Orientation [...] Vaccine (1 of 2) 2013 Influenza Vaccine (Season Ended) 2025 06/01/2019, 04/27/2017, 05/11/2016, Additional history exists Insurance [facility] MEDICARE [facility] [employer] MEDICARE GOLD IDPA [employer] MEDICARE GOLD IDPA Advance Directives For more information, please contact: [phone] * Full Code (Latest Code Status on File) Date Activated Date Inactivated Comments 05/17/2024 12:28 PM 05/17/2024 6:38 PM Care Teams Pricing Analyst Relationship Specialty Start Date End Date Odilon Briones MD PCP - General 11/07/16
== END 2024-11-27 14:00 | disposition home or self-care (01) ==
LOC: ANHIMG 14:01
PROVIDERS: PCP Emergency Medicine; Visit Provider Emergency Medicine
DX: M81.0 Age-related osteoporosis without current pathological fracture (principal); M85.88 Other specified disorders of bone density and structure, other site; M85.852 Other specified disorders of bone density and structure, left thigh; M85.851 Other specified disorders of bone density and structure, right thigh
CPT/HCPCS: 77080